=== PATIENT | female | born 2005 | race Caucasian/White ===

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

== ENCOUNTER → 2023-03-21 | Outpatient (CLI) | payer OTHER, SELFPAY | END | disposition home or self-care (01) | PROVIDERS: Visit Provider Physician Assistant | DX: R30.0 Dysuria (principal); J02.9 Acute pharyngitis, unspecified | CPT/HCPCS: 87070; 87077; 87086; 87088; 87186 ==

== ENCOUNTER → 2023-05-09 | Outpatient (CLI) | payer OTHER, SELFPAY ==
--- NOTE | 2023-05-09 15:33 | US_ITS ---
STUDY: ULTRASOUND OF THE FEMALE PELVIS - COMPLETE REASON FOR EXAM: Female, 17 years old. Pelvic pain LMP: May 06, 2023. TECHNIQUE: Transabdominal and Transvaginal TECHNICAL QUALITY: Adequate. COMPARISON: Comparison is made with prior study dated March 07, 2022. FINDINGS: The uterus is anteverted and is in a midline position. The uterus measures 8.1 cm x 4.8 cm x 3.6 cm. Normal uterine cervix. The endometrium measures 3.7 mm in thickness, and is heterogeneous (striated). There is no demonstrated endometrial mass. There is no demonstrated myometrial mass. I.U.D. - The patient does have an I.U.D. The right ovary is visualized. The right ovary measures 3.6 cm x 2.8 cm x 3 cm. There is a 2.7 cm x 2.1 cm x 2.5 cm simple ovarian cyst. There is no visualized right adnexal mass or complex lesion. There is normal arterial and normal venous vascularity. The left ovary is visualized. The left ovary measures 3.3 cm x 1.7 cm x 2.4 cm. There is no left ovarian cyst or ovarian mass. There is no visualized left adnexal mass or complex lesion. There is normal arterial and normal venous vascularity. There is no fluid in the cul-de-sac. The pre void volume of the bladder was 165 ml. US/Pelvic w/ Transvaginal IMPRESSION: IUD seen within the endometrium. 2.7 cm x 2.1 cm x 2.5 cm right ovarian cyst. Electronically Signed: Girish Tracy MD at 10:00 EDT ,
== END | disposition home or self-care (01) ==
LOC: US 15:33
PROVIDERS: Referring Provider Registered Nurse; Visit Provider Registered Nurse
DX: R10.2 Pelvic and perineal pain (principal)
CPT/HCPCS: 76830; 76856

== ENCOUNTER → 2023-06-05 | Outpatient (CLI) | payer OTHER, SELFPAY ==
[2023-06-05 12:19] LABS: Absolute Lymphocyte Count 1.63 X10^3/uL (0.83-4.51); Absolute Neutrophil Count 3.6 X10^3/uL (2.0-7.7); Basophil# 0.03 X10^3/uL; Basophil% 0.5 % (0-1); Eosinophil# 0.21 X10^3/uL; Eosinophils% 3.5 % (0-5); Hematocrit 40.1 % (37-47); Hemoglobin 13.6 g/dL (12.0-15.0); Lymphocyte # 1.63 X10^3/ul (0.83-4.51); Lymphocyte % 27.2 % (19-41); Mean Corp Hgb Conc 33.9 g/dL (32-36); Mean Corpuscular Hgb 31.8 pg (27.0-32.0); Mean Corpuscular Volume 93.7 fL (81-99); Mean Platelet Vol. 10.1 fl (6.2-12.0); Monocyte% 8.3 % (0-10); NRBC Flagged by Analyzer 0 % (0-5); Neutrophil # 3.61 X10^3/uL (2.7-7.7); Neutrophil % 60.2 % (47-70); Platelet Count 290 K/mm3 (150-450); RBC Distribution Width CV 11.9 % (11.6-14.6); RBC Distribution Width SD 40.7 fl (35.1-43.9); Red Blood Count 4.28 M/mm3 (4.2-5.4)
[2023-06-05 12:41] LABS: ALB/GLOB Ratio 1.1 RATIO (0.9-2.4); AST(SGOT) 18 U/L (15-37); Alanine Aminotransfer ALT/SGPT 31 U/L (13-56); Albumin, Serum 3.8 g/dL (3.2-5.0); Alkaline Phosphatase 72 U/L (45-117); Anion Gap 4 (5-15); BUN 9 mg/dL (7-18); BUN/Creat Ratio 11.9 RATIO (10-20); Calcium,Total 8.8 mg/dL (8.5-10.1); Chloride 108 mmol/L (98-107); Cholesterol 134 mg/dL (200); Creatinine, Serum 0.76 mg/dL (0.55-1.02); EST Glomerular Filtration Rate 104 mL/min (>60); Est Glom Filt Rate - Afr Amer 126 mL/min (>60); Ferritin 41 ng/mL (8-252); Globulin 3.5 g/dL (2.2-4.2); Glucose 93 mg/dL (74-106); High Density Lipoprotein 36 mg/dL; Iron 94 ug/dL (50-170); Iron Binding Capacity,Total 351 ug/dL (250-450); Potassium 4.4 mmol/L (3.5-5.1); Protein, Total 7.3 g/dL (6.4-8.2); Sodium Level 137 mmol/L (136-145); T4 Free Direct 0.99 ng/dL (0.76-1.46); Triglycerides 137 mg/dL; Very Low Density Lipoprotein 27 mg/dL (5-40)
== END | disposition home or self-care (01) ==
LOC: BIMLAB 08:49
PROVIDERS: PCP Nurse Practitioner; Visit Provider Nurse Practitioner
DX: Z00.00 Encounter for general adult medical examination without abnormal findings (principal); R63.5 Abnormal weight gain
CPT/HCPCS: 36415; 80053; 80061; 82728; 83540; 83550; 83735; 84439; 84443; 85025

== ENCOUNTER 2023-08-31 13:01 | Emergency (ER) | payer OTHER, SELFPAY ==
[2023-08-31 13:03] VITALS: BP 142/104; PULSE 78; RESP 16; TEMP 36.8; O2SAT 100; BMI 31.1
--- NOTE | 2023-08-31 13:39 | EDS_ITS ---
HPI History of Present Illness Chief Complaint: Back Informant: patient Onset/Context/Timing Onset: Weeks Narrative Narrative: Patient presents secondary to back pain/sciatica with intermittent tingling in her right foot. Patient initially developed right posterior shoulder pain 3 weeks ago after lifting a large dog at work. She got a massage which improved her shoulder pain, but a few days later noted pain to her right lower back. She does have a history of scoliosis. She was seen at urgent care and diagnosed with sciatica. She was given a prescription for Tizanidine, but the patient states this was to o sedating for her. She went back to urgent care recently and was given a prescription for Skelaxin. She has yet to try this because she is concerned about the sedation effects. She has been taking Naprosyn as well. She got a Kenalog shot on August 27 as well as lumbar xrays. Patient states she was called with her xray results today and was told she had a slipped disc and a possible stress fracture. Her PCP put an order in for an MRI, but because patient reports increased tingling to the right foot was told to come to the emergency room. She denies any direct trauma to her back. She has had no fever. She denies bowel or bladder incontinence. [facility] Medical History Congestion of nasal sinus Coughing H/O infectious mononucleosis Scoliosis Home Medications ?Medication ?Instructions ?Recorded ?Last Taken ?Type naproxen 500 mg tablet,delayed 500 mg PO BID PRN pain #20 tabs 07/06/23 Unknown Rx release (EC-Naproxen) ondansetron 4 mg disintegrating 4 mg PO Q6H PRN nausea and 07/06/23 Unknown Rx tablet vomiting #20 tabs metaxalone 800 mg tablet 800 mg PO TID PRN muscle pain #15 08/28/23 Unknown Rx tabs oxycodone-acetaminophen 5 mg-325 1 tab PO Q8H PRN pain 3 days #10 08/31/23 Unknown Rx mg tablet (Percocet) tabs Allergy/AdvReac Type Severity Reaction Status Date / Time amoxicillin AdvReac Severe loose Verified 08/31/23 13:03 stools Family History Grandfather Heart disease Unknown H/O blood clots Grandmother Diabetes Surgical History History of cholecystectomy Social History household members: significant other housing: house current occupational status: employed 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, sexually active: No (not currently, but has been in the past) Smoking Status: Current every day smoker tobacco type: e-cigarettes Electronic Cigarette Use: with nicotine alcohol intake: current alcohol intake frequency: holidays/special occasions only substance use type: marijuana well-balanced diet: about half the time what type of physical activity do you participate in: walking, weight training and other seatbelt use: always do you feel safe at home: Yes ROS ROS ED Constitutional Constitutional ED: Denies chills or fever(s) Eyes Eyes: Denies discharge from eye(s) ENT ENT ED: Denies discharge from eye(s), rhinorrhea or sore throat Cardiovascular Cardiovascular: Denies chest pain Respiratory/Chest Respiratory/Chest: Denies cough or dyspnea Gastrointestinal Gastrointestinal: Denies abdominal pain, nausea or vomiting Genitourinary Genitourinary ED: Denies dysuria or hematuria Musculoskeletal Musculoskeletal: Reports back pain and extremity pain Integumentary Denies Abrasions or rash Neurologic Neurologic: Reports paresthesias; Denies headache(s) or weakness Psychiatric Psychiatric: Denies anxiety or depression Allergic/Immunologic Allergic/Immunologic ED: Denies lip swelling or urticaria EXAM Physical Exam Const Vital Signs: 08/31/23 13:03 Temperature 98.2 F Temperature Source Temporal Pulse Rate 78 Respiratory Rate 16 Blood Pressure 142/104 H Blood Pressure Mean 116 Pulse Ox 100 Oxygen Delivery Method Room Air Positive well nourished and well developed General Appearance ED: well developed HEENT Reports moist mucous membranes Eyes EOMs intact bilaterally Resp normal respiratory effort and clear to auscultation bilaterally Cardio regular rate and regular rhythm GI soft to palpation and non-tender Back/Spine Back/Spine Narrative: Reproducible pain in the lower right lumbar paraspinals and over the sciatic notch. Mild tenderness in the lower midline. No erythema or point tenderness. Extremity normal to inspection Neuro oriented x3 and no sensory deficits noted Neuro Narrative: Patient able to stand at bedside. Able to stand on tip-toes and heels without difficulty. Strong distal pulses. Normal sensation on testing. Motor Exam: strength 5/5 throughout Psych mental status grossly normal Skin no rashes or lesions noted MDM MDM MDM Narrative Medical decision making narrative: I was able to review the notes from urgent care in the computer. Patient has been having intermittent paresthesias to the right foot that are now increasing in frequency. Her lumbar xray report is reviewed. 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 Moderate scoliosis noted. I did notice that there is an order for a lumbar MRI with today's date in the computer from her PCP's office. I spoke with MRI to ensure that had not already scheduled the patient and she had been directed to the wrong location. They reviewed the order and state they are still waiting for the test to be scheduled. At this time the patient does not meet any criteria for an emergency MRI. She will be given a new prescription for Naprosyn. She got an IM Kenalog injection 3 days ago and will try her Skelaxin at home. I will write her a short course of Percocet to use for breakthrough pain only. We discussed the sedating side effects of her medications. She was already given a work note by her PCP. She was given close return instruction. Patient comfortable with the plan. Discharge Plan Triage Chief Complaint: Back ED Provider: Dianna Rios Dx/Rx/DC Orders Clinical Impression: Sciatica Instructions: ED Sciatica Prescriptions: New oxycodone-acetaminophen [Percocet] 5-325 mg tablet 1 tab PO Q8H PRN (Reason: pain) 3 Days Qty: 10 0RF No Action naproxen [EC-Naproxen] 500 mg tablet,delayed release (DR/EC) 500 mg PO BID PRN (Reason: pain) Qty: 20 0RF ondansetron 4 mg tablet,disintegrating 4 mg PO Q6H PRN (Reason: nausea and vomiting) Qty: 20 0RF metaxalone 800 mg tablet 800 mg PO TID PRN (Reason: muscle pain) Qty: 15 0RF Primary Care Provider: Nisha Jackson Referrals: Nisha Jackson, MGMT ANALYST-C [Primary Care Provider] - 5-7 Days Print Language: Divehi Disposition Disposition: Home, Self Care Discharge Date/Time: 08/31/23 13:53
== END 2023-08-31 13:53 | disposition home or self-care (01) ==
PROVIDERS: Emergency Provider Emergency Medicine; PCP Nurse Practitioner; Visit Provider Emergency Medicine
DX: M54.30 Sciatica, unspecified side (principal); F17.290 Nicotine dependence, other tobacco product, uncomplicated; F12.90 Cannabis use, unspecified, uncomplicated
CPT/HCPCS: 99282

== ENCOUNTER → 2023-09-03 | Outpatient (CLI) | payer OTHER, SELFPAY ==
--- NOTE | 2023-09-03 14:25 | MRI_ITS ---
STUDY: MRI LUMBAR SPINE WITHOUT CONTRAST REASON FOR EXAM: Female, 17 years old. lumbar back pain, abnormal xray TECHNIQUE: Standardized fat and water weighted pulse sequences were obtained in the sagittal and axial planes. COMPARISON: X-ray 08/28/2023 FINDINGS: T12-L1: Normal endplates. Normal disc height, hydration and morphology. Normal bilateral facet joints. Normal central canal and bilateral lateral recesses. Normal bilateral intervertebral neural foramina. Normal lumbar lordosis. Moderate levoscoliosis centered at L2. Normal conus medullaris that terminates at the L1. L1-2: Normal endplates. Normal disc height, hydration and morphology. Normal bilateral facet joints. Normal central canal and bilateral lateral recesses. Normal bilateral intervertebral neural foramina. L2-3: Normal endplates. Normal disc height, hydration and morphology. Normal bilateral facet joints. Normal central canal and bilateral lateral recesses. Normal bilateral intervertebral neural foramina. L3-4: Normal endplates. Normal disc height, hydration and morphology. Normal bilateral facet joints. Normal central canal and bilateral lateral recesses. Normal bilateral intervertebral neural foramina. L4-5: Disc desiccation but no disc protrusion, spinal stenosis, or neural foraminal stenosis. L5-S1: Suspected bilateral pars defects of the L5 are consistent with L5 spondylolysis. 2 mm of anterolisthesis of L5 on S1 consistent with grade 1 spondylolisthesis. Mild broad disc protrusion produces mild spinal stenosis and moderate bilateral neural foraminal stenosis with abutment of the exiting L5 nerve roots bilaterally. Normal visualized sacral ala. Normal visualized paraspinous soft tissue structures. MRI/Spine Lumbar (Routine) IMPRESSION: 1. Moderate levoscoliosis. 2. L5 spondylolysis with grade 1 spinal listhesis of L5 on S1 with moderate bilateral neural foraminal stenosis. Electronically Signed: Rg Son MD at 12:24 EDT ,
== END | disposition home or self-care (01) ==
LOC: MRI 14:51
PROVIDERS: PCP Nurse Practitioner; Referring Provider Nurse Practitioner; Visit Provider Nurse Practitioner
DX: M54.50 Low back pain, unspecified (principal)
CPT/HCPCS: 72148

== ENCOUNTER 2023-09-19 15:02 | Outpatient (RCR) | payer OTHER, SELFPAY ==
--- NOTE | 2023-09-19 16:02 | HP.PTEVAL ---
Patient's Visit Information Visit Information Visit Information: DAVID DELGADILLO is a 17 year old F referred to Physical Therapy by Dr. Hu Mack MD with a diagnosis of Spondylosis. 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 She went to Urgent Care twice and they thought she had a pinched nerve and sent her home with muscle relaxers and went back a week later and got x-rays and some kind of shot. She got an MRI and saw Dr Hernandez. He said she just had a slipped disc and stenosis. He said that she needed to come to PT. She has weakness in her R leg when she stands on it. The pain is her tailbone and 2 inches to the R of tailbone. At first the pain was on the R butt cheek and her toe. If she walks for too long or sits too long she will get the pain. She does not have the R leg pain as much at this point. She changes positions to get comfortable. She is not allowed to go back to work with restrictions per her current employer. She sleeps better on her stomach but her boyfriend has commented that she tosses and turns all night. Pain Back pain: Pain Intensity (Out of 10): 4 R leg pain: Pain Intensity (Out of 10): 0 Objective Objective: Gait: Walks with decrease stance time on the R LE and decrease stride length LE MMT: R hip flex 17.9 and L 18.3 R knee ext 15.9 and L 16.9 R knee flex 13.6 and L 12.4 Able to walk on heels and toes: Pt has increase pain with walking on her heels and not so much on her toes Trunk AROM: Flex 50%, Ext 10% (less ext on the R side compared to the L), SB B 50% (increase pain on the R side), Rot B 75% Patella DTR's: 0/3 B Bridge: full ROM and no pain Good piriformis length B -SLR test Pt has pain lying flat on her back with knees bent. Prone lying she feels slight great toe tingle Prone on elbows: some R big toe tingling increase from prone to MURRAY Good hip flexor muscle length....B Good pelvic tilt and almost helps to relieve the pain. Balance/Special Test Scores Oswestry Low Back Score: 22 Goals Goal 1:: I HEP Goal Time Frame: 6-8 Weeks Goal 2:: Increase painfree trunk AROM (at the time of the eval: Trunk AROM: Flex 50%, Ext 10% (less ext on the R side compared to the L), SB B 50% (increase pain on the R side), Rot B 75%) Goal Time Frame: 6-8 Weeks Goal 3:: Be able to sit or stand for 30 min without having R leg pain Goal Time Frame: 6-8 Weeks Goal 4:: Walk with equal stance time on B LE's Goal Time Frame: 6-8 Weeks Goal 5:: Be able to demonstrate how to lift with using her knees. Goal Time Frame: 6-8 Weeks Rehabilitation Potential Physical Therapy Diagnosis: MRI shows 5 mm spondylolisthesis L5-S1 Rehabilitation Potential: Good Anticipated Interventions Patient/Client Instruction: Educate patient on: Condition and Plan of Care For the Purpose of:: To decrease pain, To increase ROM, To improve nutrient delivery to tissue, To improve muscle performance and motor function, To improve ability to perform ADL's, To increase tolerance to activity/condition/position, To improve performance and independence with ADL's, To decrease level of supervision to perform tasks, To improve ability of physical actions for home/community/work/leisure, To improve gait and locomotor functions, To improve health of tissue, To decrease soft tissue restriction, To increase flexibility/ROM and To improve endurance Therapeutic Exercise to Include: Strength training, Endurance training, Postural training, Neuromotor development, Active ROM, Dynamic Lumbar Stabilization and Scapular Strength/Stabilization For the Purpose of:: To decrease pain, To increase ROM, To improve nutrient delivery to tissue, To improve muscle performance and motor function, To improve ability to perform ADL's, To increase tolerance to activity/condition/position, To improve performance and independence with ADL's, To improve ability of physical actions for home/community/work/leisure, To improve gait and locomotor functions, To improve health of tissue, To decrease soft tissue restriction and To increase flexibility/ROM Functional Training to Include: Gait training For the Purpose of:: To improve gait and locomotor functions Text: Thank you for the opportunity to evaluate your patient. For Medicare and Medicare HMO plans, please review the plan of care and approve it. It will need to be FAXED BACK to us at [phone] for Medicare purposes. For Medicare only, by signing this I certify the plan of care. Please let me know if there are questions or concerns regarding this plan of care. Physician Signature: Date:
--- NOTE | 2023-12-18 07:20 | HP.PT.NRP ---
Patient Information Patient Information: DAVID DELGADILLO was seen in my office for initial evaluation on 09/19/23. The following Plan of Care was established for this patient: POC Established Initial Frequency: 2x /Week Initial Duration: 2 Months Anticipated Interventions Patient/Client Instruction: Educate patient on: Condition and Plan of Care For the Purpose of:: To decrease pain, To increase ROM, To improve nutrient delivery to tissue, To improve muscle performance and motor function, To improve ability to perform ADL's, To increase tolerance to activity/condition/position, To improve performance and independence with ADL's, To decrease level of supervision to perform tasks, To improve ability of physical actions for home/community/work/leisure, To improve gait and locomotor functions, To improve health of tissue, To decrease soft tissue restriction, To increase flexibility/ROM and To improve endurance Therapeutic Exercise to Include: Strength training, Endurance training, Postural training, Neuromotor development, Active ROM, Dynamic Lumbar Stabilization and Scapular Strength/Stabilization For the Purpose of:: To decrease pain, To increase ROM, To improve nutrient delivery to tissue, To improve muscle performance and motor function, To improve ability to perform ADL's, To increase tolerance to activity/condition/position, To improve performance and independence with ADL's, To improve ability of physical actions for home/community/work/leisure, To improve gait and locomotor functions, To improve health of tissue, To decrease soft tissue restriction and To increase flexibility/ROM Functional Training to Include: Gait training For the Purpose of:: To improve gait and locomotor functions Last Seen Last Seen: This patient was last seen in our office 09/19/23. Pertinent comments regarding their Physical therapy will appear below: [facility]. Pt did not schedule past her initial eval. At this point I will be discontinuing this patient from physical therapy. I would be happy to see this patient again in the future if found appropriate by the physician. Thank you! Katarina Russell, LUCI Balance/Gait/Functional tests Balance/Special Test Scores Oswestry Low Back Score: 22
== END 2023-09-19 19:00 | disposition home or self-care (01) ==
LOC: PT 15:02
PROVIDERS: PCP Nurse Practitioner; Referring Provider Orthopaedic Surgery Orthopaedic Surgery of the Spine; Visit Provider Orthopaedic Surgery Orthopaedic Surgery of the Spine
DX: M43.06 Spondylolysis, lumbar region (principal)
CPT/HCPCS: 97161

== ENCOUNTER 2024-02-27 13:07 | Emergency (ER) | payer OTHER, SELFPAY ==
[2024-02-27 13:08] VITALS: BP 138/84; PULSE 100; RESP 18; TEMP 36.1; O2SAT 99; BMI 30.8
[2024-02-27 14:08] LABS: Mucous, Urine 0 SEEN /hpf (<or=2+)
--- NOTE | 2024-02-27 14:09 | RAD_ITS ---
STUDY: X-RAY CHEST REASON FOR EXAM: Female, 18 years old. Hemoptysis. TECHNIQUE: PA and lateral views of the chest. COMPARISON: None. FINDINGS: The lungs are clear and expanded. There is no demonstrated pleural abnormality. Normal size heart. Normal mediastinum and meera. Normal visualized pulmonary arteries. Normal visualized aortic arch and descending thoracic aorta. There is a dextroscoliosis of the thoracic spine. Normal visualized ribs, clavicles, and shoulders. There is no demonstrated abnormality of the visualized soft tissue structures of the upper abdomen. RAD/Chest PA and Lateral IMPRESSION: Dextroscoliosis. The lungs are clear. Electronically Signed: Girish Tracy MD at 14:24 EST ,
--- NOTE | 2024-02-27 14:10 | EDS_ITS ---
HPI History of Present Illness Chief Complaint: Cough Narrative Narrative: Patient is a 18-year-old female with no known significant past medical history who presented to the emergency department with a chief complaint of cough, nausea vomiting diarrhea. She also complained of coughing up some blood and vomiting blood as well. Patient states that she has not vomited blood since last night. States that prior to this episode she had a episode of vomiting with no blood and then vomited again and noted that she has small amount of blood. Patient states that she was seen in urgent care yesterday and was told that she probably has the flu and was given Tamiflu but was not formally diagnosed/tested. Patient states that she does not feel nauseous since taking the Zofran last night. Patient denies any blood thinning medications. Patient denies any history of blood clots denies any recent travel history denies any tobacco use. [facility] Medical History Congestion of nasal sinus Coughing H/O infectious mononucleosis Scoliosis Home Medications ?Medication ?Instructions ?Recorded ?Last Taken ?Type multivitamin 1 tab PO DAILY 09/12/23 Unknown History ondansetron 4 mg disintegrating 4 mg PO Q6H PRN nausea and 01/18/24 Unknown Rx tablet vomiting #30 tabs bupropion HCl 150 mg 24 hr tablet, 150 mg PO QAM #30 tabs 01/22/24 Unknown Rx extended release hydroxyzine HCl 10 mg tablet 10 mg PO TID PRN anxiety #30 tabs 01/22/24 Unknown Rx ondansetron HCl 4 mg tablet 4 mg PO Q6H PRN nausea and 02/26/24 Unknown Rx vomiting #20 tabs oseltamivir 75 mg capsule (Tamiflu) 75 mg PO Q12H 5 days #10 caps 02/26/24 Unknown Rx ondansetron 4 mg disintegrating 4 mg PO Q6H PRN nausea and 02/27/24 Unknown Rx tablet vomiting #20 tabs Allergy/AdvReac Type Severity Reaction Status Date / Time amoxicillin AdvReac Severe loose Verified 02/27/24 13:08 stools Family History Grandfather Heart disease Unknown H/O blood clots Grandmother Diabetes Surgical History History of cholecystectomy Social History household members: significant other housing: house 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 well-balanced diet: about half the time what type of physical activity do you participate in: walking, weight training and other seatbelt use: always do you feel safe at home: Yes ROS ROS ED ROS Narrative Constitutional: Patient states that she had a fever yesterday of 102 and took Mucinex and it went away denies any chills, headaches, lightheadedness, dizziness Eyes: Denies change in vision double vision blurry vision Cardiovascular: Complains of some chest comfort especially when she coughs denies palpitations Respiratory: Complains of coughing as noted above denies wheezing or shortness of breath Abdomen: Complains of nausea vomit diarrhea as noted above : Denies any urinary symptoms Neurological: Denies any numbness, weakness, tingling Musculoskeletal: Denies any back pain Skin: Denies rashes or lesions EXAM Physical Exam Narrative Exam Narrative: General: Patient was lying in bed rest comfortably did not appear to be acute distress Head: Atraumatic, normocephalic Eyes: PERRL bilaterally, EOMI bilateral, no conjunctival injection noted Neck: Soft, supple, trachea midline Cardiovascular: Regular rate and rhythm no murmurs gallops rubs are noted Respiratory: Clear to auscultation bilaterally no rales rhonchi or wheezes noted Abdomen: Soft, nondistended, nontender to palpation, bowel sounds present x 4 Extremities: +5/5 strength noted in the bilateral upper and lower extremities, radial pulses +2/4 in the bilateral per extremities, no pedal edema neuroexam Neurological: Patient following commands knew that she was at [facility] year is 2024 Skin: Warm, dry, intact no rashes or lesions noted Const Vital Signs: 02/27/24 13:08 02/27/24 13:22 02/27/24 15:08 Temperature 96.9 F L Temperature Source Temporal Pulse Rate 100 80 Respiratory Rate 18 15 Respiratory Effort Short of Breath Respiratory Depth Normal Respiratory Pattern Normal Blood Pressure 138/84 H 119/77 Blood Pressure Mean 102 91 Pulse Ox 99 100 Oxygen Delivery Method Room Air MDM MDM MDM Narrative Medical decision making narrative: Patient is a 18-year-old female who presented to the emergency department chief complaint of hematemesis likely secondary to Jeanine-Hooper tear, hemoptysis nausea vomiting and not feeling well overall. On the differential diagnose includes but not limited to influenza, COVID, bronchitis, pneumonia, pneumothorax, costochondritis. Once workup is obtained reviewed she will be reevaluated. At this point time per revised Madison score patient is low risk for PE therefore feel this less likely. Patient's EKG reviewed and independently interpreted by myself showed sinus rhythm with a rate of 80 bpm. Patient's urinalysis reviewed and showed 100 leukocyte esterase negative ni trites 5-10 white cells 5-10 squamous epithelial cells likely indicating contaminant sample with 3+ bacteria we will send this for culture we will hold off on treatment as she is asymptomatic test negative. Patient tested positive for influenza A here in the emergency department. She is already on Tamiflu. Did discuss results with the patient and she would like to go home at this point time. Once again the patient has not had a recurrence of her hematemesis or hemoptysis since last night. Should be given prescription for Zofran and was advised to continue take the Tamiflu as prescribed and return with worsening symptoms or concerns. She is agreeable this plan all question concerns answered she was discharged home in stable condition. Lab Data Labs: Laboratory Results - last 24 hr 02/27/24 14:03 Urine Color Yellow Urine Clarity Sl. Cloudy Urine pH 5.0 Ur Specific [place] 1.025 Urine Protein 30 H Urine Glucose (UA) Normal Urine Ketones 50 H Urine Occult Blood 25 H Urine Nitrite Negative Urine Bilirubin Negative Urine Urobilinogen Normal Ur Leukocyte Esterase 100 H Urine RBC 0-5 SEEN Urine WBC 5-10 SEEN Ur Squamous Epith Cells 5-10 SEEN Amorphous Sediment 1+ Urine Bacteria 3+ Urine Mucus 0 SEEN Urine Test Negative Radiography Diagnostic Testing: Clinical Impression(s) from Imaging Studies Chest X-Ray 02/27/24 14:09 IMPRESSION: Dextroscoliosis. The lungs are clear. Electronically Signed: Girish Tracy MD at 14:24 EST , Discharge Plan Triage Chief Complaint: Cough ED Provider: Dylan Coronado Dx/Rx/DC Orders Clinical Impression: Influenza A Prescriptions: New ondansetron 4 mg tablet,disintegrating 4 mg PO Q6H PRN (Reason: nausea and vomiting) Qty: 20 0RF No Action multivitamin Tablet 1 tab PO DAILY bupropion HCl 150 mg tablet extended release 24 hr 150 mg PO QAM Qty: 30 1RF hydroxyzine HCl 10 mg tablet 10 mg PO TID PRN (Reason: anxiety) Qty: 30 1RF oseltamivir [Tamiflu] 75 mg capsule 75 mg PO Q12H 5 Days Qty: 10 0RF ondansetron HCl 4 mg tablet 4 mg PO Q6H PRN (Reason: nausea and vomiting) Qty: 20 0RF ondansetron 4 mg tablet,disintegrating 4 mg PO Q6H PRN (Reason: nausea and vomiting) Qty: 30 3RF Primary Care Provider: Wm Bedolla Referrals: Wm Bedolla, ENTOMOLOGY TEACHER[facility] [Primary Care Provider] - Activity Restrictions/Additional Instructions: You tested positive for influenza A here continue take Tamiflu as prescribed. Continue supportive care and use the Zofran as prescribed. Return with worsening symptoms or any other concerns. Follow-up your primary care physician outpatient setting. Print Language: Tamazight Disposition Disposition: Home, Self Care
--- NOTE | 2024-02-27 14:19 | ED.RN ---
no old ekg
[2024-02-27 14:22] LABS: Color, Urine Yellow (Yellow); Glucose, Dipstick Normal (Normal); Ketone-Dipstick 50 mg/dl (Negative); Leukocyte Esterase-Dipstick 100 /ul (Negative); Nitrite-Dipstick Negative (Negative); Occult Blood-Urine 25 /ul (Negative); Protein-Dipstick 30 mg/dl (Negative); Specific Gravity, Urine 1.025 (1.002-1.030); Urine Bilirubin Dipstick Negative (Negative); Urine Clarity Sl. Cloudy (Clear); Urine Urobilinogen Normal (Normal)
[2024-02-27 14:38] LABS: Internal QC Validated? YES +Cl - CLEAR BKGD; Pregnancy, Urine Negative Negative
[2024-02-27 14:39] LABS: Bacteria 3+ /hpf (None Seen); Red Blood Cells-Urine 0-5 SEEN /hpf (0-5); Squamous Epithelial Cells - UA 5-10 SEEN /hpf (5-10); White Blood Cells 5-10 SEEN /hpf (0-5)
[2024-02-27 14:40] LABS: Amorphous Sediment 1+
[2024-02-27 15:08] VITALS: BP 119/77; PULSE 80; RESP 15; O2SAT 100
[2024-02-27 15:36] VITALS: BP 118/79; PULSE 69; RESP 17; TEMP 36.6; O2SAT 99
== END 2024-02-27 15:38 | disposition home or self-care (01) ==
PROVIDERS: Emergency Provider Emergency Medicine; Visit Provider Emergency Medicine
DX: J10.1 Influenza due to other identified influenza virus with other respiratory manifestations (principal); R82.998 Other abnormal findings in urine; F17.210 Nicotine dependence, cigarettes, uncomplicated; Z88.0 Allergy status to penicillin
CPT/HCPCS: 71046; 81001; 81025; 87086; 87088; 87631; 93005; 99282

== ENCOUNTER → 2024-04-21 | Outpatient (CLI) | payer OTHER, SELFPAY | END | disposition home or self-care (01) | LOC: LABSPEC 16:04 | PROVIDERS: Visit Provider Physician Assistant | DX: J02.9 Acute pharyngitis, unspecified (principal) | CPT/HCPCS: 87070 ==

== ENCOUNTER → 2024-06-06 | Outpatient (CLI) | payer OTHER, SELFPAY ==
[2024-06-09 22:07] LABS: Chlamydia By Nucleic Acid AMP Negative (Negative); Gonococcus By Nucleic Acid AMP Negative (Negative)
== END | disposition home or self-care (01) ==
LOC: LABSPEC 11:42
PROVIDERS: Referring Provider Registered Nurse; Visit Provider Registered Nurse
DX: Z20.2 Contact with and (suspected) exposure to infections with a predominantly sexual mode of transmission (principal)
CPT/HCPCS: 87491; 87591

== ENCOUNTER → 2024-08-08 | Outpatient (CLI) | payer OTHER, SELFPAY ==
--- NOTE | 2024-08-08 13:04 | US_ITS ---
PROCEDURE: PELVIC W/ TRANSVAGINAL 08/08/2024 REASON FOR EXAM: AUB TECHNIQUE: PELVIC W/ TRANSVAGINAL COMPARISON: Pelvic ultrasound on 05/09/2023. FINDINGS: Measurements: Uterus: 7.6 x 3.6 x 5.7 cm for volume of 81.1 mL Endometrial Thickness: 0.5 cm Right Ovary: 3.0 x 1.8 x 1.5 cm for volume of 4.2 mL Left Ovary: 2.9 x 2.5 x 2.6 cm for volume of 9.9 mL Uterus: Anteverted. Normal contour and myometrial echotexture. Endometrium: Normal echotexture. Right ovary: Normal size and echotexture. Left ovary: Normal size and echotexture. Other adnexal findings: None. Cul-de-sac: No free intraperitoneal fluid identified. Color Doppler: Normal color flow doppler signal at both ovaries. US/Pelvic w/ Transvaginal IMPRESSION: NORMAL TRANSABDOMINAL AND TRANSVAGINAL PELVIC ULTRASOUND WITH DOPPLER. Reading Location: [id number]
== END | disposition home or self-care (01) ==
LOC: US 13:00
PROVIDERS: Referring Provider Registered Nurse; Visit Provider Registered Nurse
DX: N93.9 Abnormal uterine and vaginal bleeding, unspecified (principal); R10.2 Pelvic and perineal pain
CPT/HCPCS: 76830; 76856

== ENCOUNTER → 2024-11-12 | Outpatient (CLI) | payer OTHER, SELFPAY ==
--- NOTE | 2024-11-12 13:22 | RAD_ITS ---
PROCEDURE: NASAL BONES MIN 3 VIEWS 11/12/2024 REASON FOR EXAM: NOSE INJURY TECHNIQUE: Procedure Code: RADNB Modality: DX Procedure: NASAL BONES MIN 3 VIEWS COMPARISON: None. RAD/Nasal Bones min 3 Views IMPRESSION: Visualized paranasal sinuses appear clear. No fracture or dislocation is noted. If clinical concern persists, short-term follow-up imaging may be obtained to r ule out a currently occult fracture. Reading Location: [id number]
--- NOTE | 2024-11-12 13:22 | RAD_ITS ---
PROCEDURE: NASAL BONES MIN 3 VIEWS 11/12/2024 REASON FOR EXAM: NOSE INJURY TECHNIQUE: Procedure Code: RADNB Modality: DX Procedure: NASAL BONES MIN 3 VIEWS COMPARISON: None. RAD/Nasal Bones min 3 Views IMPRESSION: Visualized paranasal sinuses appear clear. No fracture or dislocation is noted. If clinical concern persists, short-term follow-up imaging may be obtained to r ule out a currently occult fracture. Reading Location: [id number]
== END | disposition home or self-care (01) ==
LOC: MTRAD 13:22
PROVIDERS: Referring Provider Physician Assistant; Visit Provider Physician Assistant
DX: S09.92XA Unspecified injury of nose, initial encounter (principal)
CPT/HCPCS: 70160

== ENCOUNTER → 2025-01-07 | Outpatient (CLI) | payer OTHER, SELFPAY ==
[2025-01-07 14:34] LABS: Hematocrit 40.6 % (37-47); Hemoglobin 13.8 g/dL (12.0-15.0); Immature Granulocytes Count 0.030 X10^3/uL (0.0-0.0); Mean Corp Hgb Conc 34.0 g/dL (32-36); Mean Corpuscular Volume 91.0 fL (81-99); Mean Platelet Vol. 9.3 fl (6.2-12.0); NRBC Flagged by Analyzer 0 % (0-5); Platelet Count 318 K/mm3 (150-450); RBC Distribution Width CV 11.9 % (11.6-14.6); RBC Distribution Width SD 39.4 fl (35.1-43.9); Red Blood Count 4.46 M/mm3 (4.2-5.4); White Blood Count 8.0 K/mm3 (4.4-11.0)
--- OUTSIDE RECORDS SUMMARY | 2025-01-07 14:41 | XMS RPT_ITS | CCD ---
Author Organization [facility] Care Team Providers Care Harp Repairer Name Role Phone Care Physician, No Primary Primary Care Provider Unavailable Care Physician, No Primary Referring Provider Un available ANY Espinal Attending Provider SHARON Espana NP Attending Provider Sofi De Los Santos Primary Care Provider Care Physician, No Primary Primary Care Provider Unavailable Care Physician, No Primary Referring Provider Un available ANY Espinal Attending Provider ZELALEM Boogie Attending Provider SOFI DE LOS SANTOS Primary Care Unavaila ble SOFI DE LOS SANTOS Primary Care Unavaila ble Care Physician, No Primary Primary Care Provider Unavailable Care Physician, No Primary Referring Provider Un available ANY Rivera Attending Provider ANY Espinal Attending Provider Care Physician, No Primary Primary Care Provider Unavailable Care Physician, No Primary Referring Provider Un available ANY Rivera Attending Provider ANY Espinal Attending Provider ZELALEM Boogie Attending Provider [phone] Care Physician, No Primary Primary Care Provider Unavailable Care Physician, No Primary Referring Provider Un available SHARON Jackson Attending Provider ELLIS MEHTA Attending Unavailable ELLIS MEHTA Primary Care Unavailable ELLIS MEHTA Admitting Unavailable NICHOLAS MIGUEL Admitting Unavailable NICHOLAS MIGUEL Attending Unavailable NICHOLAS MIGUEL Primary Care Unavailable Kaushik Garza Attending Unavailable Beam VSC, Zebulun Primary Care Unavailable Beam VSC, Zebulun Referring Unavailable Angela Boogie Attending Unavailable Beam VSC, Zebulun Primary Care Unavailable Beam VSC, Zebulun Referring Unavailable Angela Boogie Attending Unavailable Beam VSC, Zebulun Primary Care Unavailable Beam VSC, Zebulun Referring Unavailable Filipe Espinal Attending Unavailable Ferullo, Yuko Referring Unavailable Ferullo, Yuko Primary Care Unavailable Ferullo, Yuko Referring Unavailable Ferullo, Yuko Primary Care Unavailable Alex London Attending Unavailable Filipe Espinal Attending Unavailable Beam VSC, Zebulun Primary Care Unavailable Beam VSC, Zebulun Referring Unavailable Dylan Coronado Attending Unavailable Beam VSC, Zebulun Primary Care Unavailable Angela Boogie Referring Unavailable Angela Boogie Attending Unavailable Beam VSC, Zebulun Primary Care Unavailable Filipe Espinal Attending Unavailable Beam VSC, Zebulun Primary Care Unavailable Kaushik Garza Referring Unavailable Kaushik Garza Attending Unavailable Beam VSC, Zebulun Primary Care Unavailable Angela Boogie Referring Unavailable Angela Boogie Attending Unavailable Beam VSC, Zebulun Primary Care Unavailable Nicholas Miguel Attending Unavailable Beam VSC, Zebulun Primary Care Unavailable Beam VSC, Zebulun Referring Unavailable Beam VSC, Zebulun Primary Care Unavailable Iris Gold Attending Unavailable Ferullo, Yuko Primary Care Unavailable Iris Gold Attending Unavailable Ferullo, Yuko Referring Unavailable Ferullo, Yuko Primary Care Unavailable Hu Mack Attending Unavailable Beam VSC, Zebulun Referring Unavailable Kaushik Garza Attending Unavailable Beam VSC, Zebulun Primary Care Unavailable Filipe Espinal Attending Unavailable Beam VSC, Zebulun Primary Care Unavailable Beam VSC, Zebulun Referring Unavailable Allergies Allergy Classification Reported Allergen(s) Allergy Type Date of Onset Reaction(s) Facility (10 sources) Cheese; Translations: [CHEESE] Allergy to substance 6 Hives [facility] (3 sources) Amoxicillin Drug Allergy 4 Other, loose stools [facility] (1 source) Amoxicillin Drug Allergy [facility] (1 source) Amoxicillin Drug Allergy [facility] Medications Current Medications Medication Drug Class(es) Dates Sig (Normalized) Sig (Original) cephalexin 500 mg oral capsule (9 sources) Cephalosporin Antibacterial Start: 11-27-2022 End: 12-04-2022 take 1 capsule by mouth three times daily cephALEXin (KEFLEX) 500 mg capsule Take 1 capsule by mouth three times a day for 7 days. 21 capsule 0 11/27/2022 12/04/2022 Active Start: 04-22-2018 End: 09-02-2019 take 500 mg by mouth every twelve hours Cephalexin Discontinued 500 MG PO EVERY 12 HOURS April 22, 2018 12:00am September 02, 2019 11:01am Comment on above: Take 1 capsule by mo [facility] three times a day for 7 days. mupirocin 0.02 mg/mg topical ointment (1 source) RNA Synthetase Inhibitor Antibacterial Start: 11-27-2022 End: 12-02-2022 mupirocin (BACTROBAN) 2 % ointment Apply to affected area three times a day for 5 days. 30 g 0 11/27/2022 12/02/2022 Active Comment on above: Apply to affected ar ea three times a day for 5 days. [place] (Nk) (2 sources) Start: 05-14-2023 [place] (Nk) Active May 14, 2023 12:00am predniSONE 10 mg oral tablet (1 source) Start: 06-25-2022 End: 07-04-2022 predniSONE (DELTASONE) 10 mg tablet Indications: Sore throat Take 4 tabs daily for 3 days, then 2 tabs daily for 3 days, then 1 tab daily for 3 days with food. 21 tablet 0 06/25/2022 07/04/2022 Active Comment on above: Take 4 tabs daily fo r 3 days, then 2 tabs daily for 3 days, then 1 tab daily for 3 days with food. Completed/Discontinued Medications Medication Drug Class(es) Dates Sig (Normalized) Sig (Original) amoxicillin 875 mg / clavulanate 125 mg oral tablet (8 sources) Penicillin-class Antibacterial Start: 01-03-2022 End: 05-08-2022 take 1 tablet by mouth every twelve hours Amoxicillin-Pot Clavulanate Discontinued 1 TABLET PO Q12H January 03, 2022 1:00am May 08, 2022 3:30pm azithromycin 250 mg oral tablet (19 sources) Macrolide Antimicrobial Start: 08-22-2022 End: 02-08-2023 take 2-5 tablets by mouth once daily Azithromycin (Zithromax Z-Alams) 250 mg tablet Discontinued 0 PO .COMPLEX August 22, 2022 12:00am February 08, 2023 1:31pm take 500 mg today (day 1), then 250 mg for 4 days (days 2-5) PO Start: 06-26-2022 End: 08-10-2022 take 2-5 tablets by mouth once daily Azithromycin (Zithromax Z-Almas) 250 mg tablet Discontinued 0 PO .COMPLEX June 26, 2022 12:00am June 26, 2022 1:32pm take 500 mg today (day 1), then 250 mg for 4 days (days 2-5) PO Start: 01-10-2022 End: 05-08-2022 take 2-5 tablets by mouth once daily Azithromycin (Zithromax Z-Almas) 250 mg tablet Discontinued 0 PO .COMPLEX January 10, 2022 1:00am May 08, 2022 3:31pm take 500 mg today (day 1), then 250 mg for 4 days (days 2-5) PO CHILDREN'S MULTI VITAMINS ORAL (2 sources) CHILDREN'S MULTI VITAMINS ORAL Take by mouth once daily. 0 Active Comment on above: Take by mouth once d aily. Desogestrel-Ethinyl Estradiol (15 sources) Progestin, Estrogen Start: 01-18-2022 End: 03-01-2022 Desogestrel-Ethinyl Estradiol (Apri) 0.15-0.03 mg tablet Discontinued 1 TABLET PO daily January 18, 2022 4:17pm March 01, 2022 12:24pm Start: 01-18-2022 End: 03-01-2022 Desogestrel-Ethinyl Estradio l (Apri) 0.15-0.03 mg tablet Discontinued 1 TABLET PO daily January 18, 2022 3:17pm March 01, 2022 11:24am Start: 12-07-2022 Desogestrel-Et hinyl Estradiol (Apri) 0.15-0.03 mg tablet Active 1 TABLET PO daily January 18, 2022 3:17pm Start: 11-04-2020 End: 01-18-2022 Desogestrel-Ethinyl Estradio l (Apri) 0.15-0.03 mg tablet Discontinued 1 TABLET PO daily November 04, 2020 12:00am January 18, 2022 4:17pm Start: 11-04-2020 End: 01-18-2022 Desogestrel-Ethinyl Estradio l (Apri) 0.15-0.03 mg tablet Discontinued 1 TABLET PO daily November 03, 2020 11:00pm January 18, 2022 3:17pm Start: 11-04-2020 Desogestrel-Et hinyl Estradiol (Apri) 0.15-0.03 mg tablet Active 1 TABLET PO daily November 03, 2020 11:00pm Drospirenone-Ethinyl Estradiol (8 sources) Progestin, Estrogen Start: 08-03-2020 End: 11-04-2020 Drospirenone-Ethinyl Estradiol (Amanda (28)) 3-0.02 mg tablet Discontinued 1 TABLET PO daily August 03, 2020 12:00am November 04, 2020 1:32pm Start: 08-03-2020 End: 11-04-2020 Drospirenone-Ethinyl Estradi ol (Amanda (28)) 3-0.02 mg tablet Discontinued 1 TABLET PO daily August 02, 2020 11:00pm November 04, 2020 12:32pm Ethinyl Estradiol / norgestimate (8 sources) Progestin, Estrogen Start: 05-16-2022 take 1 tablet by mouth once daily SPRINTEC 0.25-35 mg-mcg per tablet Take 1 tablet by mouth once daily. 0 05/16/2022 Active Start: 03-01-2022 End: 08-10-2022 take 1 tablet by mouth once daily Norgestimate-Ethinyl Estradiol (Sprintec (28)) 0.25-35 mg-mcg tablet Discontinued 1 TABLET PO daily March 01, 2022 12:00am August 10, 2022 9:21am Start: 03-01-2022 End: 08-10-2022 take 1 tablet by mouth once daily Norgestimate-Ethinyl Estradiol (Sprintec (28)) 0.25-35 mg-mcg tablet Discontinued 1 TABLET PO daily March 01, 2022 1:00am August 10, 2022 10:21am Start: 03-01-2022 take 1 tablet by franc th once daily Norgestimate-Ethinyl Estradiol (Sprintec (28)) 0.25-35 mg-mcg tablet Active 1 TABLET PO daily March 01, 2022 12:00am Comment on above: Take 1 tablet by franc th once daily. fluconazole 150 mg oral tablet (8 sources) Azole Antifungal Start: 11-05-19 End: 05-09-19 Fluconazole Discontinued 150 MG PO .COMPLEX 2 November 04, 2020 12:00am May 08, 2022 3:31pm 150 mg PO take one po now and repeat in 3 days lactobacillus acidophilus 460 mg oral capsule (1 source) Start: 11-28-19 take 1 capsule by mouth once daily Lactobacillus acidophilus (FLORAJEN ACIDOPHILUS) 20 billion cell capsule Take 1 capsule by mouth once daily. 30 capsule 0 11/27/2022 Active Comment on above: Take 1 capsule by mo [facility] once daily. levonorgestrel 0.074162 mg/hr intrauterine system (1 source) Progestin, Progestin-containing Intrauterine Device levonorgestrel (MIRENA) 21 mcg/24 hours (8 yrs) 52 mg IUD 1 Each by INTRAUTERINE route one time only. 0 Active Comment on above: 1 Each by INTRAUTERI NE route one time only. lidocaine hydrochloride 20 mg/ml mucous membrane topical solution (2 sources) Antiarrhythmic, Amide Local Anesthetic Start: 06-26-19 LIDOCAINE VISCOUS 2 % solution Indications: Sore throat Take 5-10 mL by mouth four times daily as needed. 10 mL 0 06/25/2022 Active Comment on above: Take 5-10 mL by mout h four times daily as needed. Multivitamin preparation (8 sources) Start: 09-02-19 End: 08-04-19 take 1 tablet by mouth once daily Multivitamin Discontinued 1 TABLET PO DAILY September 02, 2019 12:00am August 03, 2020 1:31pm Start: 09-02-2019 End: 08-03-2020 take 1 tablet by mouth once daily Multivitamin Discontinued 1 TABLET PO DAILY September 01, 2019 11:00pm August 03, 2020 12:31pm nitrofurantoin, macrocrystals 100 mg oral capsule (3 sources) Nitrofuran Antibacterial Start: 03-22-2023 End: 04-26-2023 take 100 mg by mouth every twelve hours at mealtime Nitrofurantoin Macrocrystal Discontinued 100 MG PO Q12H March 22, 2023 1:00am April 26, 2023 11:23am must administer with a meal/food ondansetron 4 mg disintegrating oral tablet (8 sources) Serotonin-3 Receptor Antagonist Start: 04-22-2018 End: 09-02-2019 take 4 mg by mouth every eight hours as needed Ondansetron Discontinued 4 MG PO EVERY 8 HOURS NEEDED April 22, 2018 12:00am September 02, 2019 11:01am phenazopyridine hydrochloride 100 mg oral tablet (3 sources) Start: 03-22-2023 End: 04-26-2023 take 1 tablet by mouth three times daily Phenazopyridine (Pyridium) 100 mg tablet Discontinued 100 MG PO THREE TIMES A DAY March 22, 2023 1:00am April 26, 2023 11:23am Problems Active Problems Problem Classification Problem Date Documented Da te Episodic/Chronic Abdominal pain (14 sources) Left upper quadrant pain; Translations: [Left upper quadrant pain] 04-17-2018 Episodic Acute and chronic tonsillitis (5 sources) Recurrent acute tonsillitis; Translations: [Acute recurrent tonsillitis, unspecified] 08-22-2022 Episodic Administrative/social admission (1 source) Persons encountering health services in other specified circumstances; Translations: [Other reasons for seeking consultation] 06-05-2023 Episodic Genitourinary symptoms and ill-defined conditions (3 sources) Dysuria; Translations: [Dysuria] 03-21-2023 Episodic Headache; including migraine (4 sources) Headache; Translations: [Headache] 03-21-2023 Episodic Malaise and fatigue (2 sources) Fatigue; Translations: [Other fatigue] 06-05-2023 Episodic Menstrual disorders (14 sources) Dysmenorrhea; Translations: [Dysmenorrhea, unspecified] 08-03-2020 Chronic Mood disorders (2 sources) Depressive disorder; Translations: [Depression] 06-05-2023 Chronic Nausea and vomiting (11 sources) Nausea; Translations: [Nausea] 04-17-2018 Episodic Other bone disease and musculoskeletal deformities (2 sources) Adolescent idiopathic scoliosis of lumbar spine; Translations: [Adolescent idiopathic scoliosis, lumbar region] Onset: 12-10-2015 12-10-2015 Chronic Other female genital disorders (4 sources) Dyspareunia; Translations: [Dyspareunia] 04-26-2023 Chronic Other female genital disorders (2 sources) Abnormal uterine bleeding; Translations: [Abnormal uterine and vaginal bleeding, unspecified] 05-14-2023 Chronic Other female genital disorders (3 sources) Abnormal uterine and vaginal bleeding, unspecified; Translations: [Unspecified disorders of menstruation and other abnormal bleeding from female genital tract] Onset: 08-12-2024 05-14-2023 Chronic Other gastrointestinal disorders (2 sources) Irritable bowel syndrome; Translations: [Irritable bowel syndrome without diarrhea] 04-26-2023 Chronic Other gastrointestinal disorders (2 sources) Irritable bowel syndrome without diarrhea; Translations: [Irritable bowel syndrome] 04-26-2023 Chronic Other gastrointestinal disorders (2 sources) Diarrhea; Translations: [Diarrhea, unspecified] Episodic Other gastrointestinal disorders (1 source) Diarrhea, unspecified; Translations: [Diarrhea] Episodic Other injuries and conditions due to external causes (1 source) Unspecified injury of nose, initial encounter; Translations: [Unspecified injury of nose, initial encounter] Onset: 12-05-2024 Episodic Other nutritional; endocrine; and metabolic disorders (8 sources) Loss of appetite; Translations: [Anorexia] 04-17-2018 Episodic Other nutritional; endocrine; and metabolic disorders (1 source) Weight gain; Translations: [Abnormal weight gain] 06-05-2023 Episodic Other nutritional; endocrine; and metabolic disorders (1 source) Abnormal weight gain; Translations: [Abnormal weight gain] 06-05-2023 Episodic Other skin disorders (8 sources) Acne; Translations: [Acne, unspecified] 11-04-2020 Episodic Other upper respiratory disease (3 sources) Respiratory tract congestion; Translations: [Other specified diseases of upper respiratory tract] 03-21-2023 Episodic Residual codes; unclassified (2 sources) Generalized aches and pains; Translations: [Pain, unspecified] Episodic Residual codes; unclassified (1 source) Other general symptoms and signs; Translations: [Other general symptoms and signs] Onset: 10-08-2024 Episodic Skin and subcutaneous tissue infections (1 source) Impetigo bullosa; Translations: [Bullous impetigo] 11-27-2022 Episodic Unclassified (1 source) Cough, unspecified; Translations: [Cough, unspecified] Onset: 03-28-2024 Past or Other Problems Problem Classification Problem Date Documented Date Episodic/Chronic Allergic reactions (1 source) Allergic contact dermatitis, unspecified cause; Translations: [Allergic contact dermatitis, unspecified cause] Onset: 08-05-2024 Episodic Contraceptive and procreative management (2 sources) Encounter for contraceptive management, unspecified; Translations: [Unspecified contraceptive management] Onset: 06-24-2024 08-10-2022 Episodic Fever of unknown origin (1 source) Fever, unspecified; Translations: [Fever, unspecified] Onset: 02-27-2024 Episodic Immunizations and screening for infectious disease (10 sources) Patient encounter status; Translations: [Encounter for screening for COVID-19] Onset: 06-10-2024 03-01-2022 Episodic Influenza (1 source) Influenza due to other identified influenza virus with other respiratory manifestations; Translations: [Influenza due to other identified influenza virus with other respiratory manifestations] Onset: 02-27-2024 Episodic Other upper respiratory infections (20 sources) Acute sinusitis; Translations: [Acute sinusitis, unspecified] Onset: 04-30-2024 Episodic Spondylosis; intervertebral disc disorders; other back problems (4 sources) Radiculopathy, lumbar region; Translations: [Radiculopathy, lumbar region] Onset: 05-22-2024 Episodic Results Test Name Value Interpretation Reference Range Facility Nasal Bones min 3 Viewson Nasal Bones min 3 Views [facility] Imaging Services [address] [place], [place] [id number] Nasal Bones min 3 Views MR#: [id number] Acct: [id number] Name: LETY ALVES Rep #: [id number] : 2005 F 19 From: Adam Matute PCP: Wm Bedolla [facility] Status: REG CLI Study: Nasal Bones min 3 Views Date of Exam: 11/12/24 Exam# [id number] Ordering Dr: Kaushik Rincon PROCEDURE: NASAL BONES MIN 3 VIEWS 11/12/2024 REASON FOR EXAM: NOSE INJURY TECHNIQUE: Procedure Code: RADNB Modality: DX Procedure: NASAL BONES MIN 3 VIEWS COMPARISON: None. RAD/Nasal Bones min 3 Views IMPRESSION: Visualized paranasal sinuses appear clear. No fracture or dislocation is noted. If clinical concern persists, short-term follow-up imaging may be obtained to rule out a currently occult fracture. Reading Location: [id number] CC: ANY Hahn; Wm [facility] Graeme Fusion Operator: Signed Normal [facility] Urgent Care Visit Reporton 1 Urgent Care Visit Report [facility] [address], [address] [place] [address] OFFICE VISIT Date of Service: 11/12/24 MR#: [id number] Acct: [id number] Name: LETY ALVES Rep #: [id number] : 2005 Provider: ANY Hahn Age/Sex: 19/F Location: [facility] Status: Signed Intake Vital Signs 06/24/24 15:27 11/12/24 13:49 Height 5 ft 2 in 5 ft 2 in Weight: 163 lb BMI 29.8 BP 122/70 H Blood Pressure Location Lt brachial Position Sitting Pulse 86 Pulse Source Monitor Temp 98.5 F Temp Source Oral Pulse Oximetry (%) 99 Oxygen Delivery Method room air Intake Visit Reasons: NOSE INJURY Chief Complaint: Nose Injury Accompanied by: Self Allergies amoxicillin Adverse Reaction (Severe, Verified 11/12/24 13:44) loose stools Medications ???Medication ???Instructions ???Recorded ???Confirmed ???Type etonogestrel 0.12 mg-ethinyl 1 vag ring vaginal Q4W #3 ea 06/2411/12/24 Rx estradiol 0.015 mg/24 hr vaginal ring (NuvaRing) Nurse's Note: Patient's dog bopped patient in the face. Patient's rottweiler was excited and and hit his head onto patient's nose. Nose was bleeding, woke this morning and nose was still bleeding. Still painful. Taking ibuprofen this AM. 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 well-balanced diet: about half the time what type of physical activity do you participate in: walking, weight training and other seatbelt use: always do you feel safe at home: Yes HPI HPI Chief Complaint: Nose Injury Details: LETY ALVES, is a 19 F who presents to the office today for initial evaluation status post nasal bridge trauma occurring late last evening. Patient states while at home her Rottweiler dog bopped patient to the same, causing bilateral nasal epistaxis describing no swelling or blood upon questioning, stating dog was excited and and hit his head onto patient's nose. The bleeding was controlled last evening and then restarted again this morning out of the left nare as she describes and was controlled once again before arrival here today. Patient described also having a moderate headache last evening which has improved slightly since then. No vision changes or otic discharge bilateral at time of injury or symptoms. No cervical complaints or BUE radicular complaints and no LOC/nausea/vomiting at the time of the incident and her symptoms. [id number]-ore-uriuudn ibuprofen taken with minimal assist. No other associated symptoms and no other alleviating/aggravat ing factors. ROS Const Constitutional: No other (As above) Exam Const General: cooperative, healthy appearing and no acute distress Orientation: alert and awake [facility] Head: normal to inspection Ears: hearing grossly normal bilaterally, external ears normal, TM's normal bilaterally and EAC's normal Nose: external nose normal (Except trace ecchymosis with trace absent swelling at nasal bridge), nares normal, septum normal and no nasal discharge Face and sinus: normal facial exam, sinuses nontender and face symmetric Mouth: oral mucosae normal, lip normal, tongue normal, oropharynx normal and moist mucous membranes Teeth and gingiva: dentition normal Throat: posterior oropharynx normal, uvula midline and no postnasal drainage Eyes General: appearance normal, both eyes and all related structures Neck Neck: normal visual inspection, full ROM and no meningeal signs Chest Chest palpation inspection: normal inspection of the chest Resp Effort Inspection: normal respiratory effort and able to speak in complete sentences Cardio Rate: regular rate Pulses: radial pulses present Skin General: no rashes or lesions noted Neuro General: patient alert and patient awake Cognition: normal cognition Speech: speech normal Extrem General: normal to inspection Psych Appearance: grossly normal Mental Status: mental status grossly normal Mood: (more content not included)... Normal [facility] Office Visit Reporton 2024 Office Visit Report [facility] [address] [place] [address] OFFICE VISIT Date of Service: 10/08/24 MR#: [id number] Acct: [id number] Patient: LETY ALVES Rep #: [id number] : 2005 Provider: ANY Tate Age/Sex: 18/F [facility] Status: Signed Intake Vital Signs 06/24/24 15:27 10/08/24 07:49 Height 1.57 m Weight: 76.204 kg BP 143/80 H Blood Pressure Location Rt brachial Position Sitting Pulse 93 Pulse Source Monitor Temp 98.6 F Temp Source Temporal Pulse Oximetry (%) 97 Oxygen Delivery Method room air Intake Visit Reasons: COVID/ SYMPTOMS/ WANTS A TEST Chief Complaint: cough, n/v/d Allergies amoxicillin Adverse Reaction (Severe, Verified 10/08/24 07:52) loose stools Medications ???Medication ???Instructions ???Recorded ???Confirmed ???Type etonogestrel 0.12 mg-ethinyl 1 vag ring vaginal Q4W #3 ea 06/2406/24/24 Rx estradiol 0.015 mg/24 hr vaginal ring (NuvaRing) azithromycin 250 mg tablet See Rx Instructions PO .COMPLEX #6 10/08/24 10/08/24 Rx (Zithromax Z-Almas) tabs ondansetron HCl 4 mg tablet 4 mg PO Q6H PRN nausea and 5 10/08/24 Rx vomiting #20 tabs PFSH Medical History (Updated 10/08/24 @ 08:48 by ANY Wang) Allergic dermatitis Congestion of nasal sinus Coughing H/O infectious mononucleosis Scoliosis Surgical History History of cholecystectomy Family History Grandfather Heart disease Unknown H/O blood clots Grandmother Diabetes Social History household members: significant other housing: house 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 well-balanced diet: about half the time what type of physical activity do you participate in: walking, weight training and other seatbelt use: always do you feel safe at home: Yes HPI HPI Chief Complaint: cough, n/v/d Details: LETY ALVES, is a 18 F who presents to the office today for cough, n/v/d. She has been sick about 3 days. She has fever up to 102F, sweats, nasal congestion, BL earache R>L, cough, and chest congestion. She states the ear pain is severe. She also has N/V/D. Her boyfriend was recently sick with the same. ROS Const Constitutional: Positive for body ache, chills, excessive sweating, fatigue and fever(s) ENT ENT: Positive for ear or mastoid pain and nasal congestion; No sore throat Resp Respiratory: Positive for cough and chest congestion; No shortness of breath or wheezing Cardio Cardiology: Positive for excessive sweating Gastro GI: Positive for diarrhea, nausea/dyspepsia and vomiting Endo Endocrine: Positive for excessive sweating and fatigue Aller/Imm Allergy/Immunologic: No wheezing Exam Const General: cooperative, healthy appearing, comfortable, no acute distress, well developed and well groomed Nutritional Appearance: average body habitus and well nourished Orientation: alert, awake and oriented x3 HENMT Head: normocephalic and atraumatic Ears: TM abnormal (R>L) bulging and erythematous Nose: mucous membranes and turbinates abnormal boggy and erythematous and nasal discharge Throat: tonsils normal, uvula midline and postnasal drainage Resp Effort Inspection: normal respiratory effort, able to speak in complete sentences, symmetric chest movement and cough Auscultation: Bilateral: Clear to Auscultation Cardio Rate: regular rate Rhythm: regular rhythm Heart Sounds: no murmurs Results POC CHAITANYA CoV-2 PCR POC CHAITANYA CoV-2 PCR Not Detected Last Edit by Chrissy Sanchez on 10/08/24 08:06 POC FLU A B Office Flu A B Negative FLU A B Last Edit by Chrissy Sanchez on 10/08/24 08:06 Coding Level of Care Code Off vis,est,level 3 Diagnoses Viral gastroenteritis A08.4 Bilateral acute otitis media H66.93 Assessment and Plan Assessment and Plan (1) Viral gastroenteritis: Status: Acute Plan: zofran prn nausea. hydrate and rest. (2) Bilateral acute otitis media: Status: Acute Plan: Her rapid flu and covid tests are negative at this time. She appears to have a viral URI and gastroenteritis but developed severe ear pain with marked inflammation of the TMs bilaterally on exam. Therefore she will be placed on azithromycin for bilateral acute otitis media. Allergic to amox (loose stools, c diff in past). Orders: Orders POC FLU A B Today R68.89 - O (more content not included)... Normal [facility] Pelvic w/ Transvaginalon Pelvic w/ Transvaginal [facility] [address] [place] [address] Pelvic w/ Transvaginal MR#: [id number] Acct: [id number] Name: LETY ALVES Rep #: [id number] : 2005 F 18 From: Ty Reed MD PCP: Wm Bedolla [facility] Status: REG CLI Study: Pelvic w/ Transvaginal Date of Exam: 08/08/24 Exam# [id number] Ordering Dr: Angela Boogie CNM PROCEDURE: PELVIC W/ TRANSVAGINAL 08/08/2024 REASON FOR EXAM: AUB TECHNIQUE: PELVIC W/ TRANSVAGINAL COMPARISON: Pelvic ultrasound on 05/09/2023. FINDINGS: Measurements: Uterus: 7.6 x 3.6 x 5.7 cm for volume of 81.1 mL Endometrial Thickness: 0.5 cm Right Ovary: 3.0 x 1.8 x 1.5 cm for volume of 4.2 mL Left Ovary: 2.9 x 2.5 x 2.6 cm for volume of 9.9 mL Uterus: Anteverted. Normal contour and myometrial echotexture. Endometrium: Normal echotexture. Right ovary: Normal size and echotexture. Left ovary: Normal size and echotexture. Other adnexal findings: None. Cul-de-sac: No free intraperitoneal fluid identified. Color Doppler: Normal color flow doppler signal at both ovaries. US/Pelvic w/ Transvaginal IMPRESSION: NORMAL TRANSABDOMINAL AND TRANSVAGINAL PELVIC ULTRASOUND WITH DOPPLER. Reading Location: [facility] CC: ZELALEM Boogie; Wm [facility] Graeme Fusion Operator: Signed Normal [facility] Urgent Care Visit Reporton 0 08-05-2024 Urgent Care Visit Report [facility] [address], [address] [place] [address] OFFICE VISIT Date of Service: 08/05/24 MR#: [id number] Acct: [id number] Name: LETY ALVESSRIDHARDOMINIC Rep #: [id number] : 2005 Provider: ANY Hahn Age/Sex: 18/F Location: [facility] Status: Signed Intake Vital Signs 06/24/24 15:27 08/05/24 12:23 Height 5 ft 2 in BP 122/78 H Blood Pressure Location Lt brachial Position Sitting Respiration 14 Pulse 68 Pulse Source Auscultation Temp 98.2 F Temp Source Oral Intake Visit Reasons: ITCHING EVERYWHERE Chief Complaint: Lumbar spine pain Allergies amoxicillin Adverse Reaction (Severe, Verified 06/24/24 15:26) loose stools [facility] Medical History (Updated 08/05/24 @ 12:27 by Kaushik AGARWAL, PA) Allergic dermatitis Congestion of nasal sinus Coughing H/O infectious mononucleosis Scoliosis Surgical History History of cholecystectomy Family History Grandfather Heart disease Unknown H/O blood clots Grandmother Diabetes Social History household members: significant other housing: house 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 Patient noted the symptoms persist after washing last evening, therefore instructed by the mother to take oral Benadryl and see how she did upon awakening this morning; oral Zyrtec this morning did not help as well. She notes itching persists and therefore is here for further evaluation. She notes that the rash is not necessarily exacerbated after taking a hot shower or worsening upon awakening early this morning. Nonetheless her rash has been persistent to bilateral hands back chest and legs. No complaint of constricted/pruritic airway or difficulty swallowing/drooling and no complaints of chest pressure/shortness of breath/dyspnea on exertion. ROS Const Constitutional: No other (As above) Exam Const General: cooperative, healthy appearing and no acute distress Orientation: alert and awake HENMT Head: normal to inspection Ears: external ears normal Nose: external nose normal Eyes General: appearance normal, both eyes and all related structures Neck Neck: normal visual inspection and no meningeal signs Chest Chest palpation inspection: normal inspection of the chest Resp Effort Inspection: normal respiratory effort and able to speak in complete sentences Cardio Rate: regular rate Pulses: radial pulses present Skin General: no rashes or lesions noted (Erythematous flat macules and hives to bilateral hands, A/P torso, BUE, BLE) Neuro General: patient alert and patient awake Cognition: normal cognition Speech: speech normal Extrem General: normal to inspection Psych Appearance: grossly normal Mental Status: mental status grossly normal Mood: congruent mood Affect: normal affect Speech and Movement: speech and movement normal Attitude: cooperative Coding Level of Care Code Off vis,est,level 3 Diagnoses Allergic dermatitis L23.9 Assessment and Plan Assessment and Plan (1) Allergic dermatitis: Status: Acute Plan: Prednisone as prescribed today. Continue iryn-ego-aqwlcsc and histamines such as Benadryl and Zyrtec as needed. Supportive/linen and skin care measures as instructed today. Follow-up with PCP in 3 to 5 days should symptoms not resolve, ED sooner should symptoms only worsen or any other concerns develop. Patient states acknowledging understanding all the above. This note was generated with [employer] dictation software. It may contain incorrect words, spelling, and punctuation that were not noted in checking the note before signing. Medications: New prednisone 4 tablets daily x3 days, then 3 tablets daily x3 days, then 2 tablets daily x3 days, then 1 tablet daily x3 days 10 mg PO DAILY 30 tabs 0RF 08/05/24 1228 Date __ (more content not included)... Normal [facility] Hand Method Lasting Machine Operator Office Visit Reporton 06-24-2024 Hand Method Lasting Machine Operator Office Visit Report [facility] [address] [place] [address], [address] [place] [address] OFFICE VISIT Date of Service: 06/24/24 MR#: [id number] Acct: [id number] Name: LETY ALVES Rep #: [id number] : 2005 Provider: ZELALEM godinez Age/Sex: 18/F Location: [facility] Status: Signed Intake Vital Signs 06/06/24 09:59 06/24/24 15:25 06/24/24 15:27 Height 5 ft 2 in 5 ft 2 in 5 ft 2 in Weight: 169 lb 2 oz 174 lb BMI 30.9 31.8 BP 117/82 H 141/83 H Intake Visit Reasons: IUD removal/ nuva ring Knife Machine Operator Required: No Is patient in pain?: No Allergies amoxicillin Adverse Reaction (Severe, Verified 06/24/24 15:26) loose stools Medications ???Medication ???Instructions ???Recorded ???Confirmed ???Type etonogestrel 0.12 mg-ethinyl 1 vag ring vaginal Q4W #3 ea 06/2406/24/24 Rx estradiol 0.015 mg/24 hr vaginal ring (NuvaRing) Post menopausal: No Patient : No : No Control Method: ena- 2022 [facility] Medical History Congestion of nasal sinus Coughing H/O infectious mononucleosis Scoliosis Surgical History History of cholecystectomy Family History Grandfather Heart disease Unknown H/O blood clots Grandmother Diabetes Social History household members: significant other housing: house 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 well-balanced diet: about half the time what type of physical activity do you participate in: walking, weight training and other seatbelt use: always do you feel safe at home: Yes HPI IUD removal/ nuva ring Details: LETY ALVES is a 18 year old who presents for IUD removal Exam Const General: cooperative and comfortable Resp Effort Inspection: normal respiratory effort and able to speak in complete sentences GI Inspection: normal to inspection Palpation: soft External Female Exam: normal appearance of the urethra Urethra: normal appearance of the urethra Speculum Exam - Vagina: normal appearance of the vagina Speculum Exam - Cervix: normal appearance of the cervix (iud strings present) Skin General: no rashes or lesions noted Office Procedures IUD Removal IUD Removal Details: Sign out documentation: Completed Procedure: Speculum placed in vagina, IUD string visualized and grasped with ring forceps. IUD easily removed in its entirety and patient tolerated well. Coding Level of Care Code Attention Kavon Diagnoses Encounter for insertion of intrauterine contraceptive device (IUD) Z30.430 Contraceptive encounter type: IUD management IUD management: insertion Comment iud removal Assessment and Plan Assessment and Plan (1) Contraception management: Status: Acute Qualifiers: Contraceptive encounter type: IUD management IUD management: insertion Qualified Code(s): Z30.430 - Encounter for insertion of intrauterine contraceptive device Comment: IUD removed and nuvaring order placed and started today. Plan: ACHES reviewed. nuvaring to start today. Medications: New etonogestrel-ethinyl estradiol 0.12-0.015 mg/24 hr (NuvaRing) leave in place for 3 weeks of a 4-week cycle 1 vag ring vaginal Q4W 3 ea 5RF 06/24/24 1556 Date Angela Boogie CNM Cosigner Signature: Date (if applicable) CC: Normal [facility] Chlamydia/GC RYAN aptimaon CHLAMY,NUC ACID Negative Normal Negative [facility] Comment on above: Performed By: #### L 7000.1800 ####[facility] [id number] [place], [place], [address] GC BY NUC ACID Negative Normal Negative [facility] Comment on above: Result Comment: Perf ormed at: =G - [facility] [address], [place] [id number] Cloud Automation Tester: Pinyk Vazquez MD, Phone: [phone] Performed By: #### L 7000.1800 ####[facility] [id number] [place], [place], [address] Hand Method Lasting Machine Operator Office Visit Reporton 06-06-2024 Hand Method Lasting Machine Operator Office Visit Report [facility] [address], [address] [place] [address] OFFICE VISIT Date of Service: 06/06/24 MR#: [id number] Acct: [id number] Name: LETY ALVES Rep #: [id number] : 2005 Provider: ZELALEM godinez Age/Sex: 18/F Location: [facility] Status: Signed Intake Vital Signs 04/21/24 09:05 05/22/24 14:58 06/06/24 09:59 Height 5 ft 2 in 5 ft 2 in 5 ft 2 in Weight: 169 lb 169 lb 2 oz BMI 30.9 30.9 BP 113/80 117/82 H Blood Pressure Location Lt brachial Position Sitting Pulse 80 Pulse Source Monitor Temp 98.6 F Pulse Oximetry (%) 99 Intake Visit Reasons: IUD periodic pain and bleeding Knife Machine Operator Required: No Is patient in pain?: No Allergies amoxicillin Adverse Reaction (Severe, Verified 06/06/24 09:57) loose stools Medications ???Medication ???Instructions ???Recorded ???Confirmed ???Type multivitamin 1 tab PO DAILY 09/12/23 06/06/24 H istory ondansetron HCl 4 mg tablet 4 mg PO Q6H PRN nausea and 5 06/06/24 Rx vomiting #20 tabs hydroxyzine HCl 10 mg tablet 10 mg PO TID PRN anxiety #30 tabs 04/16/24 06/06/24 Rx methocarbamol 500 mg tablet 500 mg PO TID PRN pain/spasms #60 05/22/24 06/06/24 Rx tabs Post menopausal: No Patient : No : No Control Method: 2022 [facility] Medical History Congestion of nasal sinus Coughing H/O infectious mononucleosis Scoliosis Surgical History History of cholecystectomy Family History Grandfather Heart disease Unknown H/O blood clots Grandmother Diabetes Social History household members: significant other housing: house 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 well-balanced diet: about half the time what type of physical activity do you participate in: walking, weight training and other seatbelt use: always do you feel safe at home: Yes HPI IUD periodic pain and bleeding Details: LETY ALVES is a 18 year old who presents for frequent IUD spotting. has not had any vaginal bleeding for 2 years, dec/jan had increased episode of vaginal bleeding, no clots. was able to feel strings. since then has had multiple times per week with vaginal spotting. no changes in sexual partners. no change in medical history. Exam Const General: cooperative and comfortable Resp Effort Inspection: normal respiratory effort and able to speak in complete sentences GI Inspection: normal to inspection Palpation: soft External Female Exam: normal appearance of the urethra Urethra: normal appearance of the urethra Speculum Exam - Vagina: normal appearance of the vagina Speculum Exam - Cervix: normal appearance of the cervix Skin General: no rashes or lesions noted Coding Level of Care Code Off vis,est,level 3 Diagnoses Abnormal uterine bleeding (AUB) N93.9 Pelvic pain R10.2 Assessment and Plan Assessment and Plan (1) Abnormal uterine bleeding (AUB): Status: Acute Comment: desires to continue IUD. interested in low dose OCP if irregular bleeding continues. hold for now and wants symptom management for cramping/nausea. - gc/ct obtained today. -will use lubrication for next 2 weeks. (2) Pelvic pain: Status: Acute Comment: TVUS for IUD with pain for placement check. strings 3-4cm Orders: Orders Chlamydia/GC RYAN aptima Today Z20.2 - Contact with and (suspected) exposure to infections with a predominantly sexual mode of transmission Pelvic (Non ) Today R10.2 - Pelvic and perineal pain 06/06/24 1101 Date Angela Boogie CNM Cosigner Signature: Date (if applicable) CC: Normal [facility] Orthopedic Visit Reporton Orthopedic Visit Report [facility] [address] [place] [address] OFFICE VISIT Date of Service: 05/22/24 MR#: [id number] Acct: [id number] Name: LEONALETY JORDI Rep #: [id number] : 2005 Provider: ANY Sofia Age/Sex: 18/F Location: [facility] Status: Signed Intake Vital Signs 04/21/24 09:05 05/22/24 14:58 Height 5 ft 2 in 5 ft 2 in Weight: 169 lb 165 lb BMI 30.9 30.2 BP 113/80 Blood Pressure Location Lt brachial Position Sitting Pulse 80 Pulse Source Monitor Temp 98.6 F Temp Source Temporal Pulse Oximetry (%) 99 Intake Visit Reasons: LUMBAR SPINE Chief Complaint: Lumbar spine pain Accompanied by: self Is patient in pain?: Yes Pain scale (1-10): 4 Allergies amoxicillin Adverse Reaction (Severe, Verified 05/22/24 15:01) loose stools Medications ???Medication ???Instructions ???Recorded ???Confirmed ???Type multivitamin 1 tab PO DAILY 09/12/23 05/22/24 H istory ondansetron HCl 4 mg tablet 4 mg PO Q6H PRN nausea and 5 05/22/24 Rx vomiting #20 tabs hydroxyzine HCl 10 mg tablet 10 mg PO TID PRN anxiety #30 tabs 04/16/24 05/22/24 Rx methocarbamol 500 mg tablet 500 mg PO TID PRN pain/spasms #60 05/22/24 05/22/24 Rx tabs Have you fallen in the past year?: No PFSH Medical History Congestion of nasal sinus Coughing H/O infectious mononucleosis Scoliosis Surgical History History of cholecystectomy Family History Grandfather Heart disease Unknown H/O blood clots Grandmother Diabetes Social History household members: significant other housing: house 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 well-balanced diet: about half the time what type of physical activity do you participate in: walking, weight training and other seatbelt use: always do you feel safe at home: Yes HPI LUMBAR SPINE Details: This documentation accurately reflects the service provided and the decisions made by me, ANY Sofia 05/22/24 7410. Part of today???s visit was documented by Tonya Gonsalez MA, acting as scribe. LETY ALVES is a 18 year old F here today for lumbar spine pain. Pain (location, quality, quantity, radiation):The pain is in the lower back on the right side. Denies any radicular symptoms. Denies any numbness tingling or burning. Onset (date, injury, precipitating event):This started last summer at her work, she lifted a heavy dog and felt a sharp. Patient had an MRI on 09/03/2023. Says that a week ago she was very active with work and felt that her symptoms that worse. She has seen a chiropractor since PT. Thinks that chiropractor was beneficial at first but her last session like it made her pain worse and at this point does not feel like she will be going back to the chiropractor. Prior Hx (injury, surgery, prior issues with extremity):Denies any injury or surgeries. Denies any numbness or tingling in the legs. Aggravating factor (position, tasks):Bending, twisting, sitting to standing, or standing to sitting makes the pain worse. 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 Sitting too long would cause right sided numbness and tingling, not recently. Treatments (ice/heat , Medication, injections, home exercises):Dr. Mack did refer her to Dr. Tirado. When she saw Dr. Tirado he wanted her to do some physial therapy. Patient went to physical therapy in August-November of last year. The physical therapy did help. Dr. Mack did refer her to Dr. Tirado. No injections with pain management. Ortho Exam General General: Yes no acute distress Neurologic: Yes alert and Yes oriented x3 Spine SPINE TESTING CERVICAL THORACIC LUMBAR Musculoskeletal Strength 0=absent - 5=normal Details: Neurological exam of the lower extremities shows 5x5 power. Normal sensations across all dermatomes. No hyperreflexia. There is mild midline tenderness in right paraspinal tenderness. Coding Level of Care Code Off vis,est,level 3 Diagnoses Spondylolisthesis, lumbar region M43.16 Adolescent idiopathic scoliosis of lumbar region M41.126 Scoliosis type: idiopathic Idiopathic scoliosis type: adolescent Spinal region: lumbar Assessment an (more content not included)... Normal [facility] Culture, Throaton 04-23-2024 CUT Normal throat tali isolated. No beta-hemolytic streptococcus isolated. Normal [facility] Comment on above: Performed By: #### M 100.1000 ####[facility] [id number] [place], [address] Office Visit Reporton 2024 Office Visit Report [facility] [address] [place] [address] OFFICE VISIT Date of Service: 04/21/24 MR#: [id number] Acct: [id number] Patient: LETY ALVES Rep #: [id number] : 2005 Provider: ANY Tate Age/Sex: 18/F [facility] Status: Signed Intake Vital Signs 04/16/24 14:29 04/21/24 09:05 Height 1.57 m 1.57 m Weight: 76.657 kg BMI 30.9 BP 113/80 113/80 Blood Pressure Location Lt brachial Lt brachial Position Sitting Sitting Respiration 16 Pulse 96 80 Pulse Source Monitor Monitor Temp 98.6 F Temp Source Temporal Pulse Oximetry (%) 99 Intake Visit Reasons: STREP Chief Complaint: sore throat, body aches Allergies amoxicillin Adverse Reaction (Severe, Verified 04/21/24 09:06) loose stools Medications ???Medication ???Instructions ???Recorded ???Confirmed ???Type multivitamin 1 tab PO DAILY 09/12/23 04/21/24 H istory ondansetron HCl 4 mg tablet 4 mg PO Q6H PRN nausea and 5 04/21/24 Rx vomiting #20 tabs hydroxyzine HCl 10 mg tablet 10 mg PO TID PRN anxiety #30 tabs 04/16/24 04/21/24 Rx lamotrigine 25 mg tablet 25 mg PO QDAY 14 days #46 tabs 07/0604/21/24 Rx PFSH Medical History Congestion of nasal sinus Coughing H/O infectious mononucleosis Scoliosis Surgical History History of cholecystectomy Family History Grandfather Heart disease Unknown H/O blood clots Grandmother Diabetes Social History household members: significant other housing: house 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 well-balanced diet: about half the time what type of physical activity do you participate in: walking, weight training and other seatbelt use: always do you feel safe at home: Yes HPI HPI Chief Complaint: sore throat, body aches Details: LETY ALVES, is a 18 F who presents to the office today for sore throat. Sore throat began yesterday. She has felt unwell since . Since she had fever, fatigue, body aches, nausea and vomiting. She has occasional cough with SOB. Dad recently had influenza B. She is also concerned that her symptoms may be a result of medication withdrawal. She recently stopped wellbutrin and is preparing to start lamictal. She notes that since stopping wellbutrin she feels fatigued, nauseous and vomits. Last vomited sunday. She has an rx for zofran which helps somewhat. When she changed a psych med in the past she had similar withdrawal symptoms. Exam Const General: cooperative, healthy appearing, comfortable, no acute distress, well developed and well groomed Nutritional Appearance: average body habitus and well nourished Orientation: alert, awake and oriented x3 HENMT Head: normocephalic and atraumatic Ears: hearing grossly normal bilaterally, external ears normal and TM's normal bilaterally Nose: external nose normal and nares normal Throat: tonsils normal, uvula midline and posterior oropharynx abnormal (mild erythema) Neck Lymphatic: no lymphadenopathy noted Resp Effort Inspection: normal respiratory effort, able to speak in complete sentences, symmetric chest movement and no cough Auscultation: Bilateral: Clear to Auscultation Cardio Rate: regular rate Rhythm: regular rhythm Heart Sounds: no murmurs Results POC FLU A B Office Flu A B Negative FLU A B Last Edit by Chrissy Sanchez on 04/21/24 09:28 Coding Level of Care Code Off vis,est,level 2 Diagnoses Pharyngitis J02.9 Medication withdrawal F19.939 Assessment and Plan Assessment and Plan (1) Pharyngitis: Status: Acute (2) Medication withdrawal: Status: Acute Plan: Rapid flu test is negative. Tonsils are unremarkable. Centor criteria 0/5. Throat culture obtained - send out will follow. Pt has withdrawal from wellbutrin with nausea vomiting and fatigue. Sore throat likely due to vomiting. Pt already has zofran. Recommended utilizing zofran appropriately and staying well hydrated. Call psychiatrist for other withdrawal management. Pt does not want to see prior psychiatrist due to disatisfaction with care. Recommended [facility] for alternative provider if she is looking to change practices. Orders: Orders POC FLU A B Today R68.89 - Other general symptoms and signs 04/21/24 0958 Date (more content not included)... Normal [facility] MR/BMS.BPon 04-16-2024 MR/BMS.BP [facility], [address] [place] [address] OFFICE VISIT Date of Service: 04/16/24 MR#: [id number] Acct: [id number] Name: LETY ALVES Rep #: [id number] : 2005 Provider: SHARON mina Age/Sex: 18/F Location: [facility].BP Status: Signed Intake Vital Signs 01/22/24 13:37 02/27/24 13:08 04/16/24 14:29 Height 5 ft 2 in 5 ft 2 in 5 ft 2 in BP 113/80 Blood Pressure Location Lt brachial Position Sitting Respiration 16 Pulse 96 Pulse Source Monitor BP Intake Visit Reasons: 6 wk FU Accompanied by: Self Allergies amoxicillin Adverse Reaction (Severe, Verified 04/16/24 15:08) loose stools Medications ???Medication ???Instructions ???Recorded ???Confirmed ???Type multivitamin 1 tab PO DAILY 09/12/23 04/16/24 H istory ondansetron 4 mg disintegrating 4 mg PO Q6H PRN nausea and 4 04/16/24 Rx tablet vomiting #30 tabs ondansetron HCl 4 mg tablet 4 mg PO Q6H PRN nausea and 5 04/16/24 Rx vomiting #20 tabs ondansetron 4 mg disintegrating 4 mg PO Q6H PRN nausea and 5 04/16/24 Rx tablet vomiting #20 tabs hydroxyzine HCl 10 mg tablet 10 mg PO TID PRN anxiety #30 tabs 04/16/24 04/16/24 Rx lamotrigine 25 mg tablet 25 mg PO QDAY 14 days #46 tabs 07/0604/16/24 Rx PFSH Medical History Congestion of nasal sinus Coughing H/O infectious mononucleosis Scoliosis Surgical History History of cholecystectomy Family History Grandfather Heart disease Unknown H/O blood clots Grandmother Diabetes Social History household members: significant other housing: house 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 well-balanced diet: about half the time what type of physical activity do you participate in: walking, weight training and other seatbelt use: always do you feel safe at home: Yes HPI History of Present Illness History provided by: patient Chief complaint: Anxiety/Depression HPI: Lety Alves is a 18 year old female patient presenting today for a follow up evaluation. States she does not feel her medication has been beneficial for her. Does report feeling nauseous when she is taking her medication. Does feel she has seen improvements with this but it is not gone completely. Does report a decrease in appetite with medication as well and has been unable to eat after she takes it. Does try to eat before she take the medication and then eats a small dinner. States she has not been sleeping well with use of medication. Has tried adjusting timing of medication but does not feel that has provided additional benefit. States she has not noticed a decrease with panic or anxiety with medication use. Does not feel she has seen benefit with mood stabilization or bad thoughts. States she is feeling more but the feelings are not good feelings. Is feelings depressed daily with current medication. Admits to some passive SI which occurs situationally. Denies plan or intent. Admits to heightened feelings of guilt. Admits to increase irritability. Admits to feelings of anxiety every day, especially when she has a large amount of social activities to do. Is struggling to fall asleep and stay asleep. 5 hours on average. Does not feel well rested. Has been having nightmares. Previous similar episode: Yes Age of first onset of symptoms: 0-10 years Review of Systems Constitutional Reports: change in weight (Gain 50 lb after starting Prozac and Lexapro use over 4 mos. ) and fatigue; Denies: fever(s) Eyes Denies: change in vision, blurry vision, photophobia, eye discomfort or eye discharge Ears, Nose, Mouth, Throat Reports: nasal congestion (Seasonal allergies, leoncio) and epistaxis (With increased stress); Denies: dysphagia, hoarseness, ear or mastoid pain, ear discharge, change in hearing, tinnitus or vertigo Cardiovascular Reports: chest pain (w/ anxiety) and dyspnea (w/ anxiety) Respiratory Reports: dyspnea (w/ anxiety); Denies: wheezing Gastrointestinal Reports: abdominal pain (w/anxiety), nausea (w/anxiety), vomiting (w/anxiety), heartburn, diarrhea, constipation and bloating; Denies: hematemesis, dysphagia, change in bowel habits or hematochezia Genitourinary Reports: urinary frequency and urinary urgency; Denie (more content not included)... Normal [facility] Urine Cultureon 02-29-2024 URC Mixed Gram Positive Organisms [place] Count 50,000-80,000 MIXC Mixed contaminants. Submit a new specimen if indicated. Normal [facility] Comment on above: Performed By: #### M 100.2200 #### [facility] [address] [place], [place], [id number] Chest PA and Lateralon 02-26 Chest PA and Lateral [facility] Services [address] [place] [address] Chest PA and Lateral MR#: [id number] Acct: [id number] Name: LETY ALVES Rep #: [id number] : 2005 F 18 From: Girish courtney MD PCP: Wm Bedolla [facility] Status: REG ER Study: Chest PA and Lateral Date of Exam: 02/27/24 Exam# [id number] Ordering Dr: Dylan Coronado DO [id number] STUDY: X-RAY CHEST REASON FOR EXAM: Female, 18 years old. Hemoptysis. TECHNIQUE: PA and lateral views of the chest. COMPARISON: None. FINDINGS: The lungs are clear and expanded. There is no demonstrated pleural abnormality. Normal size heart. Normal mediastinum and meera. Normal visualized pulmonary arteries. Normal visualized aortic arch and descending thoracic aorta. There is a dextroscoliosis of the thoracic spine. Normal visualized ribs, clavicles, and shoulders. There is no demonstrated abnormality of the visualized soft tissue structures of the upper abdomen. RAD/Chest PA and Lateral IMPRESSION: Dextroscoliosis. The lungs are clear. Electronically Signed: Girish Tracy MD at 14:24 EST , CC: Dr. Dylan Coronado DO; Wm [facility] Graeme Fusion Operator: Signed Normal [facility] Emergency Department Summary on 02-27-2024 Emergency Department Summary [facility] Medical Records Department [address] [place] [address] Emergency Department Summary 02/27/24 MR#: [id number] Acct: [id number] Name: LETY ALVES Rep #: [id number] : 2005 18 From: Dylan Coronado DO PCP: Wm Bedolla [facility] Status:REG ER Location: ED HPI History of Present Illness Chief Complaint: Cough Narrative Narrative: Patient is a 18-year-old female with no known significant past medical history who presented to the emergency department with a chief complaint of cough, nausea vomiting diarrhea. She also complained of coughing up some blood and vomiting blood as well. Patient states that she has not vomited blood since last night. States that prior to this episode she had a episode of vomiting with no blood and then vomited again and noted that she has small amount of blood. Patient states that she was seen in urgent care yesterday and was told that she probably has the flu and was given Tamiflu but was not formally diagnosed/tested. Patient states that she does not feel nauseous since taking the Zofran last night. Patient denies any blood thinning medications. Patient denies any history of blood clots denies any recent travel history denies any tobacco use. [facility] Medical History Congestion of nasal sinus Coughing H/O infectious mononucleosis Scoliosis Home Medications ???Medication ???Instructions ???Recorded ???Last Taken ???Type multivitamin 1 tab PO DAILY 09/12/23 Unknown History ondansetron 4 mg disintegrating 4 mg PO Q6H PRN nausea and 01/18/24 Unknown Rx tablet vomiting #30 tabs bupropion HCl 150 mg 24 hr tablet, 150 mg PO QAM #30 tabs 01/22/24 Unknown Rx extended release hydroxyzine HCl 10 mg tablet 10 mg PO TID PRN anxiety #30 tabs 01/22/24 Unknown Rx ondansetron HCl 4 mg tablet 4 mg PO Q6H PRN nausea and 02/26/24 Unknown Rx vomiting #20 tabs oseltamivir 75 mg capsule (Tamiflu) 75 mg PO Q12H 5 days #10 caps 02/26/24 Unknown Rx ondansetron 4 mg disintegrating 4 mg PO Q6H PRN nausea and 02/27/24 Unknown Rx tablet vomiting #20 tabs Allergy/AdvReac Type Severity Reaction Status Date / Time amoxicillin AdvReac Severe loose Verified 02/27/24 13:08 stools Family History Grandfather Heart disease Unknown H/O blood clots Grandmother Diabetes Surgical History History of cholecystectomy Social History household members: significant other housing: house 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 well-balanced diet: about half the time what type of physical activity do you participate in: walking, weight training and other seatbelt use: always do you feel safe at home: Yes ROS ROS ED ROS Narrative Constitutional: Patient states that she had a fever yesterday of 102 and took Mucinex and it went away denies any chills, headaches, lightheadedness, dizziness Eyes: Denies change in vision double vision blurry vision Cardiovascular: Complains of some chest comfort especially when she coughs denies palpitations Respiratory: Complains of coughing as noted above denies wheezing or shortness of breath Abdomen: Complains of nausea vomit diarrhea as noted above : Denies any urinary symptoms Neurological: Denies any numbness, weakness, tingling Musculoskeletal: Denies any back pain Skin: Denies rashes or lesions EXAM Physical Exam Narrative Exam Narrative: General: Patient was lying in bed rest comfortably did not appear to be acute distress Head: Atraumatic, normocephalic Eyes: PERRL bilaterally, EOMI bilateral, no conjunctival injection noted Neck: Soft, supple, trachea midline Cardiovascular: Regular rate and rhythm no murmurs gallops rubs are noted Respiratory: Clear to auscultation bilaterally no rales rhonchi or wheezes noted Abdomen: Soft, nondistended, nontender to palpation, bowel sounds present x 4 Extremities: +5/5 strength noted in the bilateral upper and lower extremities, radial pulses +2/4 in the bilateral per extremities, no pedal edema neuroexam Neurological: Patient following commands knew that she was at [facility] year is 2024 Skin: Warm, dry, intact no rashes or lesions noted Const Vital Signs: 02/27/24 13:08 02/27/24 13:22 02/27/24 15:08 Temperature 96.9 F L Temperature Source T (more content not included)... Normal [facility] M100.678on 02-27-2024 M100.678 Copy of report sent to Infection Control Printer [id number] 02/27/24 1502 GLENIS. FLUABV+SARS-CoV-2+RS V Pnl Resp RYAN+probe RESULTS CALLED TO RUBEN Purdy 02/27/24 1503 Maida Holden. REPORT READ BACK BY . FLUABV+SARS-CoV-2+RS V Pnl Resp RYAN+probe FLUABV+SARS-CoV-2+RS V Pnl Resp RYAN+probe SARS-CoV-2 (COVID 19) Negative INFLUENZA A A Positive A INFLUENZA B Negative RSV PCR Negative INFLUENZAE A [facility] Comment on above: Performed By: #### L 400.0001, M100.678, L400.7600 ####[facility] [id number] [facility]. [place], [place], [id number] ,Urineon 02-27-2024 Beta HCG ( test) Ql (U) Negative [facility] Comment on above: Order Comment: CLEAN CATCH Result Comment: Very dilute urine specimens, as indicated by a low specific gravity, may not contain leasing representative levels of hCG. If is still suspected, a first morning urine specimen should be collected 48 hours later and tested. Performed By: #### L 400.0001, M100.678, L400.7600 ####[facility] [id number] [place], [place], [id number] Urinalysis, Completeon 02-26 AMORPHOUS 1+ Normal [facility] Comment on above: Order Comment: CLEAN CATCH Performed By: #### L 400.0001, M100.678, L400.7600 #### [facility] [address] [place], [address] BACTERIA 3+ /hpf Normal None Seen [facility] Comment on above: Order Comment: CLEAN CATCH Performed By: #### L 400.0001, M100.678, L400.7600 #### [facility] [address] [place], [address] EPI,SQUAMOUS 5-10 SEEN Normal 5-10 [facility] Comment on above: Order Comment: CLEAN CATCH Performed By: #### L 400.0001, M100.678, L400.7600 #### [facility] [address] [place], [address] RBC 0-5 SEEN Normal 0-5 [facility] Comment on above: Order Comment: CLEAN CATCH Performed By: #### L 400.0001, M100.678, L400.7600 #### [facility] [address] [place], [address] WBC 5-10 SEEN Normal 0-5 [facility] Comment on above: Order Comment: CLEAN CATCH Performed By: #### L 400.0001, M100.678, L400.7600 #### [facility] [address] [place], [address] Mucus Ql (Urine sed) 0 SEEN Normal [facility] Comment on above: Order Comment: CLEAN CATCH Performed By: #### L 400.0001, M100.678, L400.7600 #### [facility] [address] [place], [address] Office Visit Reporton 2024 Office Visit Report [facility] [address] [place] [address] OFFICE VISIT Date of Service: 02/26/24 MR#: [id number] Acct: [id number] Patient: LETY ALVES Rep #: [id number] : 2005 Provider: ANY Tate Age/Sex: 18/F [facility] Status: Signed Intake Vital Signs 01/22/24 13:37 02/26/24 12:53 Height 1.57 m 1.57 m Weight: 78.018 kg BMI 31.4 BP 114/80 Blood Pressure Location Lt brachial Position Sitting Pulse 110 H Pulse Source Monitor Temp 98.8 F Temp Source Temporal Pulse Oximetry (%) 99 Intake Visit Reasons: FEVER CHILLS, ACHY/ COVID /FLU TEST Chief Complaint: cough, fever Allergies amoxicillin Adverse Reaction (Severe, Verified 02/26/24 12:55) loose stools Medications ???Medication ???Instructions ???Recorded ???Confirmed ???Type multivitamin 1 tab PO DAILY 09/12/23 02/26/24 History ondansetron 4 mg disintegrating 4 mg PO Q6H PRN nausea and 01/18/24 02/26/24 Rx tablet vomiting #30 tabs bupropion HCl 150 mg 24 hr tablet, 150 mg PO QAM #30 tabs 01/22/24 02/26/24 Rx extended release hydroxyzine HCl 10 mg tablet 10 mg PO TID PRN anxiety #30 tabs 01/22/24 02/26/24 Rx ondansetron HCl 4 mg tablet 4 mg PO Q6H PRN nausea and 02/26/24 02/26/24 Rx vomiting #20 tabs oseltamivir 75 mg capsule (Tamiflu) 75 mg PO Q12H 5 days #10 caps 02/26/24 02/26/24 Rx PFSH Medical History Congestion of nasal sinus Coughing H/O infectious mononucleosis Scoliosis Surgical History History of cholecystectomy Family History Grandfather Heart disease Unknown H/O blood clots Grandmother Diabetes Social History (Updated 12/04/23 @ 10:31 by Maida Rocha) household members: significant other housing: house 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 well-balanced diet: about half the time what type of physical activity do you participate in: walking, weight training and other seatbelt use: always do you feel safe at home: Yes HPI HPI Chief Complaint: cough, fever Details: LETY ALVES, is a 18 F who presents to the office today for cough and fever. The patient started feeling ill last night. She has 5 coworkers that currently are sick with influenza A. The patient has severe headache, body aches, fevers, chills, congestion, cough, and SOB. She also has nausea vomiting and diarrhea. ROS Const Constitutional: Positive for body ache, chills, fatigue, fever(s) and headache(s) ENT ENT: Positive for ear or mastoid pain, nasal congestion, headache(s) and sore throat Resp Respiratory: Positive for cough and shortness of breath; No wheezing Gastro GI: Positive for diarrhea, nausea/dyspepsia and vomiting Neuro Neurology: Positive for headache(s) Endo Endocrine: Positive for fatigue Aller/Imm Allergy/Immunologic: No wheezing Exam Const General: cooperative, healthy appearing, comfortable, no acute distress, well developed and well groomed Nutritional Appearance: average body habitus and well nourished Orientation: alert, awake and oriented x3 HENMT Head: normocephalic and atraumatic Ears: hearing grossly normal bilaterally, external ears normal and TM's normal bilaterally Nose: mucous membranes and turbinates abnormal boggy and erythematous and nasal discharge Throat: abnormal tonsil (2+ no exudates) and posterior oropharynx abnormal erythema Resp Effort Inspection: normal respiratory effort, able to speak in complete sentences, symmetric chest movement and cough Auscultation: Bilateral: Clear to Auscultation Cardio Rate: regular rate Rhythm: regular rhythm Heart Sounds: no murmurs Results POC CHAITANYA CoV-2 PCR POC CHAITANYA CoV-2 PCR Not Detected Last Edit by Chrissy Sanchez on 02/26/24 13:04 POC FLU A B Office Flu A B Negative FLU A B Last Edit by Chrissy Sanchez on 02/26/24 13:05 Coding Level of Care Code Off vis,est,level 3 Diagnoses Sore throat J02.9 Influenza A J10.1 Assessment and Plan Assessment and Plan (1) Sore throat: Status: Acute (2) Influenza A: Status: Acute Plan: Patient tested today with rapid tests for flu and covid and these were negative. However the patient has classic symptoms of influenza A and has 5 coworkers currently with influenza A. It is likely that the rapid test is a false negative. The patient is within 48 hour window for tamiflu. S (more content not included)... Normal [facility] MR/BMS.BPon 01-22-2024 MR/BMS.BP [facility] [address] [facility], [address] [place] [address] OFFICE VISIT Date of Service: 01/22/24 MR#: [id number] Acct: [id number] Name: LETY ALVES Rep #: [id number] : 2005 Provider: SHARON mina Age/Sex: 18/F Location: [facility].BP Status: Signed Intake Vital Signs 12/04/23 10:27 01/22/24 13:37 Height 5 ft 2 in 5 ft 2 in Weight: 171 lb BMI 31.2 BP 116/78 Blood Pressure Location Rt brachial Position Sitting Pulse 79 Pulse Source Monitor BP Intake Visit Reasons: 8wfu Allergies amoxicillin Adverse Reaction (Severe, Verified 01/11/24 11:45) loose stools PFSH Medical History Congestion of nasal sinus Coughing H/O infectious mononucleosis Scoliosis Surgical History History of cholecystectomy Family History Grandfather Heart disease Unknown H/O blood clots Grandmother Diabetes Social History (Updated 12/04/23 @ 10:31 by Maida Rocha) household members: significant other housing: house 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 well-balanced diet: about half the time what type of physical activity do you participate in: walking, weight training and other seatbelt use: always do you feel safe at home: Yes HPI History of Present Illness History provided by: patient HPI: Lety Alves is a 18 year old female patient presenting today for a follow up evaluation. Was taking sertraline for about 3 weeks and was having an increase in SI while on the medication. Was thinking about how she would do it, who would find her, etc. and the thoughts were constant. Admits to having an increase in migraines. When she discontinued use she was having headache, vomiting, and diarrhea but it lasted more than 5 days and went to urgent care and they encouraged her to go to be seen by her PCP to be referred to a neurologist. Has been having an increase in depression. Admits to a lack of motivation and does not want to go to work or go to school. Has still been in counseling. Does not have any hobbies she is enjoying. Admits that SI has gone away, for the most part but is much more passive than it was while on sertraline. Denies plan or intent. Was sleeping well with sertraline but has not been since discontinuing. 4 hours per night on average. Wakes up frequently in the middle of the night. Admits to a difficulty with falling asleep as well. Admits to feeling like she has been overeating most days which makes her gain weight and then she feels worse mentally. Anxiety is worse when she is having more vivid nightmares. Has a large amount of fear around her family members passing away. Admits to panic attacks occurring during the day on occasion but feels she is able to bring herself out of it. Previous similar episode: Yes Age of first onset of symptoms: 0-10 years Review of Systems Constitutional Reports: change in weight (Gain 50 lb after starting Prozac and Lexapro use over 4 mos. ) and fatigue; Denies: fever(s) Eyes Denies: change in vision, blurry vision, photophobia, eye discomfort or eye discharge Ears, Nose, Mouth, Throat Reports: nasal congestion (Seasonal allergies, leoncio) and epistaxis (With increased stress); Denies: dysphagia, hoarseness, ear or mastoid pain, ear discharge, change in hearing, tinnitus or vertigo Cardiovascular Reports: chest pain (w/ anxiety) and dyspnea (w/ anxiety) Respiratory Reports: dyspnea (w/ anxiety); Denies: wheezing Gastrointestinal Reports: abdominal pain (w/anxiety), nausea (w/anxiety), vomiting (w/anxiety), heartburn, diarrhea, constipation and bloating; Denies: hematemesis, dysphagia, change in bowel habits or hematochezia Genitourinary Reports: urinary frequency and urinary urgency; Denies: urinary incontinence, hematuria, vaginal discharge or genital pruritis Musculoskeletal Reports: back pain (Hx scoliosis, hx back injury); Denies: extremity pain, joint pain, joint swelling, muscle cramps or muscle weakness Integumentary/Breast Denies: rash, pruritus, changing lesions, non-healing lesions or jaundice Neurological Reports: headache(s); Denies: numbness in extremities, weakness in extremities, vertigo, seizure-like activity or involuntary movements Psychiatric Reports: anxiety, mood swings, panic attacks, change in sleep pattern (Difficulty sleeping, daytime sleepiness), hopel (more content not included)... Normal [facility] Urgent Care Visit Reporton 1 03-12-2023 Urgent Care Visit Report [facility] [address], [address] [place] [id number] OFFICE VISIT Date of Service: 01/11/24 MR#: [id number] Acct: [id number] Name: LETY ALVES Rep #: [id number] : 2005 Provider: ANY Lopez Age/Sex: 18/F Location: [facility] Status: Signed Intake Vital Signs 12/04/23 10:27 01/11/24 11:44 Height 5 ft 2 in Weight: 171 lb BMI 31.2 BP 116/78 104/60 Blood Pressure Location Rt brachial Lt brachial Position Sitting Sitting Respiration 15 Pulse 79 102 H Pulse Source Monitor NIBP Temp 98.6 F Temp Source Oral Pulse Oximetry (%) 99 Oxygen Delivery Method room air Intake Visit Reasons: BA/N/V/D/DIZZINESS Chief Complaint: BA, n/v/d, dizzy 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 recent doubling of Zoloft caused suicidal ideations, pt stopped med without weaning as provider was out of office. pt states provider said s/s MAY be related but should be evaluated medically to rule out viral cause. s/s now intermittent vs constant as before. pt has appt with provider next week to discuss meds, denies current suicidal/homicidal ideations. 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 well-balanced diet: about half the time what type of physical activity do you participate in: walking, weight training and other seatbelt use: always do you feel safe at home: Yes HPI HPI Chief Complaint: BA, n/v/d, dizzy Details: LETY ALVES, is a 18 F who presents to the office today for complaint of bodyaches, nausea, vomiting and diarrhea. Patient did recently have her Zoloft increased from 25 mg to 50 mg and then stopped the medication without tapering due to suicidal ideations. Several days later the patient started having the symptoms and then recently also started having a fever. She denies hematochezia, hematemesis or hemoptysis. She states that all of her suicidal ideations have resolved. She does state that some of her symptoms have improved in particular the nausea and dizziness. No other associated symptoms or alleviating/aggravat ing factors. ROS Const Constitutional: No other (As above) Exam Const General: cooperative and healthy appearing [facility] Head: normocephalic and atraumatic Ears: hearing grossly normal bilaterally Face and sinus: face symmetric Eyes General: appearance normal, both eyes and all related structures Pupils: PERRL Resp Effort Inspection: normal respiratory effort Auscultation: Bilateral: Clear to Auscultation Cardio Rate: regular rate Rhythm: regular rhythm GI Inspection: normal to inspection Auscultation: hyperactive bowel sounds Percussion: normal to percussion Palpation: soft, no hepatosplenomegaly, no guarding and nontender General: bimanual renal exam normal bilaterally and No CVA tenderness Skin General: no rashes or lesions noted Neuro General: patient alert and CN's II-XI intact bilaterally Psych Appearance: grossly normal Mental Status: mental status grossly normal Results POC GEORGINA Covid FluAB PCR POC Georgina Covid PCR Not Detected Last Edit by Leonora Harrison on 01/11/24 12:06 POC GEORGINA FLU NOT DETECTED FLU A B Last Edit by Leonora Harrison on 01/11/24 12:06 Coding Level of Care Code Off vis,est,level 3 Diagnoses Medication withdrawal F19.939 Acute viral syndrome B34.9 Contact with or suspected exposure to other viral communicable (more content not included)... Normal [facility] Orthopedic Visit Reporton Orthopedic Visit Report [facility] [address] [place] [id number] OFFICE VISIT Date of Service: 12/27/23 MR#: [id number] Acct: [id number] Name: LETY ALVESDOMINIC Rep #: [id number] : 2005 Provider: Dr. Hu Mack MD Age/Sex: 18/F Location: [facility] Status: Signed Intake Vital Signs 12/04/23 10:27 Height 5 ft 2 in Weight: 171 lb BMI 31.2 BP 116/78 Blood Pressure Location Rt brachial Position Sitting Pulse 79 Pulse Source Monitor Intake Visit Reasons: LUMBAR SPINE Is patient in pain?: Yes Allergies amoxicillin Adverse Reaction (Severe, Verified 12/27/23 11:15) loose stools Medications ???Medication ???Instructions ???Recorded ???Confirmed ???Type multivitamin 1 tab PO DAILY 09/12/23 12/27/23 History sertraline 50 mg tablet 50 mg PO QDAY #30 tabs 12/04/23 12/27/23 Rx PFSH Medical History Congestion of nasal sinus Coughing H/O infectious mononucleosis Scoliosis Surgical History History of cholecystectomy Family History Grandfather Heart disease Unknown H/O blood clots Grandmother Diabetes Social History (Updated 12/04/23 @ 10:31 by Maida Rocha) household members: significant other housing: house 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 well-balanced diet: about half the time what type of physical activity do you participate in: walking, weight training and other seatbelt use: always do you feel safe at home: Yes HPI LUMBAR SPINE Details: This documentation accurately reflects the service provided and the decisions made by me, Dr. Hu Mack MD 12/27/23 1109. Part of today???s visit was documented by [ ], acting as scribe. LETY ALVES is a 18 year old F here today for lumbar spine. Patient notes that she saw pain management after her last appointment but it took her awhile to get in to them so she completed physical therapy in the mean time, which was helpful. By the time she saw them, physical therapy had been helpful so they didn't give her any treatment. She was given a home exercise program which she continues to do once a day. Her pain returned about 3-4 weeks ago and her pain returned with no known injury. She states that she stands up, bends over, picks up a dog and she will have a pinching pain for the entire rest of the day. Her pain comes and goes and she will go without pain for days. Patient has that sudden pain, she has pain into her right leg and she will have numbness of her toes for a few hours. No left sided pain. Patient is no longer taking her muscle relaxers due to it making her sleepy and it made her dependant to sleep at night. She tried Advil which helps her. She saw Dr. Tirado at pain management which recommended that she take muscle relaxers, no injections. Ortho Exam General General: Yes no acute distress Neurologic: Yes alert and Yes oriented x3 Spine SPINE TESTING CERVICAL THORACIC LUMBAR Musculoskeletal Strength 0=absent - 5=normal Details: Examination the back shows midline and right paraspinal tenderness. Neurologic evaluation of lower extremity shows 5 x 5 power normal shows normal sensations in all dermatomes. Passive straight leg raise negative. Coding Level of Care Code Off vis,est,level 4 Diagnoses Spondylolisthesis, lumbar region M43.16 Lumbar radiculopathy M54.16 Time Spent (min) 35 Assessment and Plan Assessment and Plan (1) Spondylolisthesis, lumbar region: Status: Acute (2) Lumbar radiculopathy: Status: Acute Plan Again reviewed her x-rays and MRI from August. 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 Lumbar curve measures 35 degrees. 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 MRI shows L4-5 disc degeneration with mild central disc bulge. Discussed options today which includes more physical therapy and injections with pain management. Has had physical therapy over the last few months and has shown good improvement. I would recommend continued exercises taught in physical therapy. She is established with Dr. Tirado at pain management who didn't recommend at that time any injections, however given her new pain, recommend that she reach back out to him to discuss options. She will follow up (more content not included)... Normal [facility] Absolute lymphocyte countOrd ered By: Yuko Jackson on 06-05-2023 Lymphocytes Auto (Unsp spec) [#/Vol] 1.63 10*3/uL 0.83-4.51 [facility] Automated lymphocyte count a s percentage of total leukocytesOrdered By: Yuko Jackson on 06-05-2023 Lymphocytes/100 WBC Auto (Unsp spec) 27.2 % 19-41 [facility] Basophil percentageOrdered B y: Yuko Jackson on 06-05-2023 Basophils/100 WBC (Bld) 0.5 % 0-1 [facility] Bilirubin [Mass/Vol] 0.40 mg/dL 0.20-1.00 [facility] Comment on above: For patients on eltr ombopag therapy, use of Dimension [place] TBIL is not recommended. Chloride [Moles/Vol] 108 mmol/L 98-107 [facility] Cholesterol [Mass/Vol] 134 mg/dL <200 [facility] Comment on above: <200 mg/dL Desirable 200-240 mg/dL Borderline >240 mg/dL High Risk Eosinophils/100 WBC (Bld) 3.5 % 0-5 [facility] Glucose [Mass/Vol] 93 mg/dL 74-106 [facility] Hemoglobin (Bld) [Mass/Vol] 13.6 g/dL 12.0-15.0 [facility] Monocytes/100 WBC (Bld) 8.3 % 0-10 [facility] Neutrophils (Bld) [#/Vol] 3.6 10*3/uL 2.0-7.7 [facility] Neutrophils/100 WBC (Bld) 60.2 % 47-70 [facility] Potassium [Moles/Vol] 4.4 mmol/L 3.5-5.1 [facility] Protein [Mass/Vol] 7.3 g/dL 6.4-8.2 [facility] Sodium [Moles/Vol] 137 mmol/L 136-145 [facility] Triglyceride [Mass/Vol] 137 mg/dL <199 [facility] Comment on above: The drugs N-Acetylcy steine and Metamizole may falsely depress this assay.Serum Triglycerides Reference Interval Normal <150 mg/dL Borderline high 150 - 199 mg/dL High 200 - 499 mg/dL Very High > or = 500 mg/dL WBC (Bld) [#/Vol] 6.0 10*3/uL 4.4-11.0 [facility] Determination of erythrocyte mean corpuscular volume (MCV)Ordered By: Yuko Jackson on 06-05-2023 MCV (RBC) [Entitic vol] 93.7 fL 81-99 [facility] Erythrocyte distribution wid th ratioOrdered By: Yuko Jackson on 06-05-2023 Erythrocyte distribution width (RBC) [Ratio] 11.9 % 11.6-14.6 [facility] Erythrocyte distribution wid th standard deviationOrdered By: Yuko Jackson on 06-05-2023 Erythrocyte distribution width (RBC) [Entitic vol] 40.7 fL 35.1-43.9 [facility] Hematocrit Auto (Bld) [Volum e fraction]Ordered By: Yuko Jackson on 06-05-2023 Hematocrit (Bld) [Volume fraction] 40.1 % 37-47 [facility] Immature granulocytes/100 WB C Auto (Bld)Ordered By: Yuko Jackson on 06-05-2023 Immature granulocytes/100 WBC (Bld) 0.300 % 0.0-0.9 [facility] Comment on above: IG% - Immature Granu locytes (promyelocytes, myelocytes and metamyelocytes) > 1% indicates that a LEFT SHIFT is Present. Iron measurement (mass/mass) Ordered By: Yuko Jackson on 06-05-2023 Iron (Unsp spec) [Mass/Mass] 94 ug/dL 50-170 [facility] Laboratory - Chemistry and C hemistry - challengeOrdered By: Yuko Jackson on 06-05-2023 Albumin/Globulin [Mass ratio] 1.1 {ratio} 0.9-2.4 [facility] ALP [Catalytic activity/Vol] 72 U/L 45-117 [facility] ALT [Catalytic activity/Vol] 31 U/L 13-56 [facility] Cholesterol in HDL [Mass/Vol] 36 mg/dL >40 [facility] Comment on above: The drugs N-Acetylcy steine and Metamizole may falsely depress this assay. Reference Range HDL <40 mg/dL Low HDL Cholesterol HDL >or= 60 mg/dL High HDL Cholesterol Cholesterol in LDL [Mass/Vol] 71 mg/dL 0-130 [facility] CO2 [Moles/Vol] 25.0 mmol/L 21.0-32.0 [facility] Ferritin [Mass/Vol] 41 ng/mL 8-252 [facility] Globulin (S) [Mass/Vol] 3.5 g/dL 2.2-4.2 [facility] Magnesium [Mass/Vol] 2.0 mg/dL 1.6-2.6 [facility] Urea nitrogen/Creatinine [Mass ratio] 11.9 mg/mg 10-20 [facility] Laboratory - Hematology and Cell countsOrdered By: Yuko Jackson on 06-05-2023 MCH (RBC) [Entitic mass] 31.8 pg 27.0-32.0 [facility] MCHC (RBC) [Mass/Vol] 33.9 g/dL 32-36 [facility] Nucleated RBC/100 WBC (Bld) [Ratio] 0 % 0-5 [facility] Platelet mean volume (Bld) [Entitic vol] 10.1 fL 6.2-12.0 [facility] Platelets (Bld) [#/Vol] 290 10*3/uL 150-450 [facility] No Panel InformationOrdered By: Yuko Jackson on 06-05-2023 Estimated GFR (MDRD) Amer 126 mL/min >60 [facility] Comment on above: GFR Calc Estimated GFR (MDRD) Non-Af Amer 104 mL/min >60 [facility] Comment on above: Non- GFR Calc Total Iron Binding Capacity 351 ug/dL 250-450 [facility] VLDL Cholesterol 27 mg/dL 5-40 [facility] RBC Auto (Bld) [#/Vol]Ordere d By: Yuko Jackson on 06-05-2023 RBC (Bld) [#/Vol] 4.28 10*6/uL 4.2-5.4 [facility] Serum or plasma calcium xenia urement (mass/volume)Ordered By: Yuko Jackson on 06-05-2023 Calcium [Mass/Vol] 8.8 mg/dL 8.5-10.1 [facility] Serum or plasma creatinine m easurement (mass/volume)Ordered By: Yuko Jackson on 06-05-2023 Creatinine [Mass/Vol] 0.76 mg/dL 0.55-1.02 [facility] Comment on above: The validity of the calculated GFR & GFRAA in patients over 70 years has not been determined. Clinical correlation is essential. Serum or plasma thyroid stim ulating hormone (TSH) measurement (units/volume)Ordered By: Yuko Jackson on 06-05-2023 TSH Qn 2.00 uIU/mL 0.358-3.74 [facility] Serum or plasma urea nitroge n measurement (mass/volume)Ordered By: Yuko Jackson on 06-05-2023 Urea nitrogen [Mass/Vol] 9 mg/dL 7-18 [facility] Thin prep Papanicolaou smear with manual screeningOrdered By: Yuko Jackson on 06-05-2023 Thin prep Papanicolaou smear with manual screening 3.8 g/dL 3.2-5.0 [facility] Thin prep Papanicolaou smear with manual screening 18 U/L 15-37 [facility] Thin prep Papanicolaou smear with manual screening 4 5-15 [facility] Thin prep Papanicolaou smear with manual screening 0.99 ng/dL 0.76-1.46 [facility] Laboratory - Chemistry and C hemistry - challengeon 04-26-2023 HCG ( test) Ql (U) Negative [facility] Bilirubin Ql (U) Negative [facility] Glucose Ql (U) Negative [facility] Ketones Ql (U) Negative [facility] Specific gravity (U) [Rel density] 1.025 [facility] Urobilinogen (U) [Mass/Vol] Negative [facility] Laboratory - Hematology and Cell countson 04-26-2023 Hemoglobin Ql (U) Negative [facility] - Specimen inform ationon 04-26-2023 Clarity (U) Clear [facility] Color (U) Yellow [facility] Laboratory - Urinalysison Nitrite Ql (U) Negative [facility] Protein Ql (U) Negative [facility] No Panel Informationon 04-25 Urine Leukocytes Negatve [facility] Urine Non-Hemolyzed Blood Negative [facility] Culture, urineOrdered By: Sunni Ramírez on 03-21-2023 Bacteria identified Cx Nom (U) Staphylococcus saprophyticus [facility] Bacteria identified Cx Nom (U) Staphylococcus saprophyticus [facility] Laboratory - Chemistry and C hemistry - challengeon 03-21-2023 Bilirubin Ql (U) Small (1+) [facility] Glucose Ql (U) Negative [facility] HCG ( test) Ql (U) Negative [facility] Ketones Ql (U) Negative [facility] Specific gravity (U) [Rel density] 1.020 [facility] Urobilinogen (U) [Mass/Vol] Negative [facility] Laboratory - Hematology and Cell countson 03-21-2023 Hemoglobin Ql (U) Negative [facility] - Microbiology an d Antimicrobial susceptibilityon 03-21-2023 SARS-CoV-2 (COVID-19) RNA RYAN+probe Ql (Unsp spec) Not detected [facility] Laboratory - Specimen inform ationon 03-21-2023 Clarity (U) Cloudy [facility] Color (U) YELLOW [facility] Laboratory - Urinalysison Nitrite Ql (U) Negative [facility] Protein Ql (U) Negative [facility] No Panel Informationon 03-21 Influenza Types A,B Rapid (Clinic) Negative [facility] Urine Leukocytes Negatve [facility] Urine Non-Hemolyzed Blood Negative [facility] Throat specimen bacteria harsha ntification by cultureOrdered By: Filipe Ramírez on 03-21-2023 Bacteria identified Cx Nom (Throat) streptococcus isolated. [facility] Bacteria identified Cx Nom (Throat) streptococcus isolated. [facility] No Panel Informationon 02-08 POC SARS CoV-2 Antigen Negative [facility] Bacteria Wnd Culton 11-28-19 23 Bacteria identified Cx Nom (Wound) ORGANISM ID: 1 Moderate Staphylococcus aureus ORGANISM ID: 2 Few Streptococcus agalactiae (group b streptococcus) Susceptibility testing not performed on beta hemolytic streptococci due to predictable susceptibility to penicillin and other beta lactams. For testing, call Microbiology within 72 hours. GRAM STAIN: Rare Gram positive cocci No Polymorphonuclear Leukocytes ORGANISM ID: 1 (STAPHYLOCOCCUS AUREUS) ANTIBIOTIC INTERPRETATION MIGUEL STATUS REFERENCE RANGE Oxacillin S 0.5 F Susceptible <=2 , Resistant >2 Oxacillin-susceptibl e staphylococci are susceptible to other penicilllinase-stabl e penicillins, beta-lactam/beta-lac tamase inhibitor combinations, anti-staphylococcal cephems, and carbapenems. Gentamicin S <=0.5 F Susceptible <=4 , Intermediate >4 , Resistant >8 Erythromycin R >=8 F Susceptible <=0.5 , Intermediate >.5 , Resistant >4 Clindamycin S <=0.12 F Susceptible <=0.5 , Intermediate >.5 , Resistant >2 Testing for inducible clindamycin resistance was performed. Trimeth sulfameth S <=10 F Susceptible <=40 , Resistant >40 Vancomycin S <=0.5 F Susceptible <=2 , Intermediate >2 , Resistant >8 Rifampin S <=0.5 F Susceptible <=1 , Intermediate >1 , Resistant >2 Rifampin should not be used alone for antimicrobial therapy. Tetracycline S <=1 F Susceptible <=4 , Intermediate >4 , Resistant >8 Doxycycline S <=0.5 F Susceptible <=4 , Intermediate >4 , Resistant >8 Abnormal [facility] Comment on above: Performed By: #### [id number] #### [facility] CLIA [id number] [address] [place] [address] [place] CNOVon 11-27-2022 CNOV Office Visit (WSTR) LETY ALVES ([id number]) 1 F Date Time Provider Department 11/27/22 6:30 PM THEO MILES [facility] During your visit today, we recorded the following information about you: Temperature Pulse Respiration Blood pressure 98.4 degrees 106/minute 16/minute 124/60 Weight 69.9 kg Theo Miles, COMMUNITY RELATIONS SPECIALIST.ASSOCIATE SPA DIRECTOR 11/27/2022 7:08 PM Signed Subjective HPI Nontoxic-appearing female presents urgent care chief plaint rash. Duration of symptoms 2 and half weeks. Associated symptoms painful rash. States slightly itchy at times and then becomes painful. States significant other developed rash prior to hers. Has been using antifungal cream and antibiotic cream this has not helped. Overall feels well. Denies any fever body aches chills productive cough chest pain shortness of breath pleuritic pain hemoptysis nausea vomiting abdominal pain change in bowel or bladder habits. Past medical history prescription medication use and allergies reviewed. Denies chance of . Has IUD. .Patient presents with: Rash: all over, lesions x 2.5 weeks. itching and painful PAST MEDICAL HISTORY Diagnosis Date NEGATIVE MEDICAL HISTORY PMH - PAST MEDICAL HISTORY OF 11/25/08 normal color vision Scoliosis 11/08/15 lumbar 37 degrees; thoracic 34 degrees (Ortho referral) PAST SURGICAL HISTORY Procedure Laterality Date NONE ALLERGIES Cheese MEDICATIONS levonorgestrel (MIRENA) 21 mcg/24 hours (8 yrs) 52 mg IUD 1 Each by INTRAUTERINE route one time only. SPRINTEC 0.25-35 mg-mcg per tablet Take 1 tablet by mouth once daily. (Patient not taking: Reported on 11/27/2022) LIDOCAINE VISCOUS 2 % solution Take 5-10 mL by mouth four times daily as needed. (Patient not taking: Reported on 11/27/2022) CHILDREN'S MULTI VITAMINS ORAL Take by mouth once daily. (Patient not taking: Reported on 06/25/2022) FAMILY HISTORY Problem Relation Age of Onset Hypertension Mother Heart Father Heart Paternal Grandfather Asthma Sister None Sister Social History Tobacco Use Smoking status: Never Smokeless tobacco: Never Vaping Use Vaping Use: current everyday user Substance Use Topics Alcohol use: No Drug use: No BP 124/60 Pulse 106 Temp 36.9 ?C (98.4 ?F) Resp 16 Wt 69.9 kg (154 lb) LMP 10/23/2016 (Approximate) SpO2 99% Hr 84 Review of Systems Constitutional: Negative for chills, fever and malaise/fatigue. HENT: Negative for congestion, ear discharge, ear pain, sinus pain and sore throat. Eyes: Negative for blurred vision, pain, discharge and redness. Respiratory: Negative for cough, hemoptysis, sputum production, shortness of breath, wheezing and stridor. Cardiovascular: Negative for chest pain. Gastrointestinal: Negative for abdominal pain, diarrhea, nausea and vomiting. Musculoskeletal: Negative for myalgias. Skin: Positive for itching and rash. Neurological: Negative for dizziness and headaches. Objective Physical Exam Constitutional: General: She is not in acute distress. Appearance: She is not toxic-appearing. HENT: Head: Normocephalic. Nose: Nose normal. Eyes: Pupils: Pupils are equal, round, and reactive to light. Cardiovascular: Rate and Rhythm: Normal rate. Pulmonary: Effort: Pulmonary effort is normal. No respiratory distress. Musculoskeletal: Cervical back: Normal range of motion. Skin: General: Skin is warm and dry. Comments: Scattered rash noted to highlighted areas. Erythematous base with some vesicles noted. Some crusting. No adenopathy noted. Spares mucosal membranes. Neurological: General: No focal deficit present. Mental Status: She is alert. ASSESSMENT/PLAN: 1. Bullous impetigo - ICD9: 684, ICD10: L01.03 - Topical treatment with mupirocin ointment (Bactroban) TID - Systemic treatment with Cephalaxin (Keflex) - Skin care and contagious disease precautions discussed - Follow up if symptoms persist or fail to resolve - ABSCESS AND WOUND CULTURE WITH GRAM STAIN Patient nontoxic-appearing. Suspicious of bullous impetigo. Low suspicion for fungal infection/viral infection. Treat with mupirocin Keflex. Follow-up if symptoms or not improving 2 to 3 days. Patient was educated on supportive therapies.Patient was instructed to immediately proceed to emergency room for any new, worsening, or symptoms lasting longer than anticipated. The patient's clinical presentation is otherwise unremarkable at this time. Based on exam and clinical finding, the patient is stable for discharge. Plan of care was discussed with patient. Patient verbalizes understanding and agrees to plan of care. This note was generated using [employer] software. It may contain errors in wording, punctuation, or spelling. Theo Miles APRN.CNP Allergies As of Date: 11/27/2022 Noted Allergy Reaction CHEESE 2015 4 - Hives Comments: Powder santhosh (more content not included)... Normal [facility] Throat specimen bacteria harsha ntification by cultureOrdered By: Mihir Contreras on 09-23-2022 Bacteria identified Cx Nom (Throat) [facility] CNOVon 06-25-2022 CNOV Office Visit (UCWSTR) LETY ALVES ([id number]) 1 F Date Time Provider Department 06/25/22 1:00 PM DARIA CUNHA [facility] During your visit today, we recorded the following information about you: Temperature Pulse Respiration Blood pressure 98.3 degrees 76/minute 16/minute 104/80 Weight 56.7 kg Daria Cunha APRN.CNP 06/25/2022 1:29 PM Signed Subjective HPI HPI Letydean Alves is a 16 year old female who presents today for CC of st, cough, fever. This started 1 day ago. Has tried otc medication for relief. Symptoms are worsened by nothign. Risk factors hx of strep and severe mono. Denies possibility of being . vapes. .Patient presents with: Sore Throat PAST MEDICAL HISTORY Diagnosis Date NEGATIVE MEDICAL HISTORY [facility] - PAST MEDICAL HISTORY OF 11/25/08 normal color vision Scoliosis 11/08/15 lumbar 37 degrees; thoracic 34 degrees (Ortho referral) PAST SURGICAL HISTORY Procedure Laterality Date NONE ALLERGIES Cheese MEDICATIONS SPRINTEC 0.25-35 mg-mcg per tablet Take 1 tablet by mouth once daily. CHILDREN'S MULTI VITAMINS ORAL Take by mouth once daily. (Patient not taking: Reported on 06/25/2022) FAMILY HISTORY Problem Relation Age of Onset Hypertension Mother Heart Father Heart Paternal Grandfather Asthma Sister None Sister Social History Tobacco Use Smoking status: Never Smokeless tobacco: Never Vaping Use Vaping Use: current everyday user Substance Use Topics Alcohol use: No Drug use: No Review of Systems Constitutional: Positive for fever. HENT: Positive for congestion and sore throat. Negative for ear pain and nosebleeds. Respiratory: Positive for cough. Negative for shortness of breath and wheezing. Musculoskeletal: Negative for neck pain. Objective Blood pressure 104/80, pulse 76, temperature 36.8 ?C (98.3 ?F), resp. rate 16, weight 56.7 kg (125 lb), last menstrual period 10/23/2016, SpO2 98 %. Physical Exam Constitutional: General: She is not in acute distress. Appearance: She is not toxic-appearing or diaphoretic. HENT: Head: Normocephalic and atraumatic. Right Ear: Hearing, tympanic membrane, ear canal and external ear normal. Left Ear: Hearing, tympanic membrane, ear canal and external ear normal. Nose: Nose normal. Mouth/Throat: Pharynx: Uvula midline. Oropharyngeal exudate and posterior oropharyngeal erythema present. No pharyngeal swelling or uvula swelling. Tonsils: Tonsillar exudate present. 2+ on the right. 2+ on the left. Eyes: General: Lids are normal. No scleral icterus. Right eye: No discharge. Left eye: No discharge. Conjunctiva/sclera: Conjunctivae normal. Pupils: Pupils are equal, round, and reactive to light. Neck: Trachea: Trachea normal. Cardiovascular: Rate and Rhythm: Normal rate and regular rhythm. Heart sounds: Normal heart sounds. Pulmonary: Effort: Pulmonary effort is normal. Breath sounds: Normal breath sounds. Abdominal: General: Abdomen is flat. Palpations: Abdomen is soft. There is no hepatomegaly or splenomegaly. Tenderness: There is no abdominal tenderness. Musculoskeletal: Cervical back: Normal range of motion and neck supple. Lymphadenopathy: Cervical: No cervical adenopathy. Right cervical: No superficial cervical adenopathy. Left cervical: No superficial cervical adenopathy. Skin: Findings: No rash. Neurological: Mental Status: She is alert and oriented to person, place, and time. ASSESSMENT/PLAN: 1. Sore throat - ICD9: 462, ICD10: J02.9 - suspect viral - Alere Strep Test neg, no culture pending - Discussed supportive care treatment with fluids, rest and analgesia. - The patient should follow up in 3-5 days if symptoms persist or worsen - Call back if drooling, increased temperature, symptoms of dehydration and/or still sick in one week - STREP A MOLECULAR (POC) - PREDNISONE 10 MG TABLET - LIDOCAINE HCL 2 % MUCOSAL SOLUTION Daria Cunha APRN.ARELY Referring Provider: SELF [200] Allergies As of Date: 06/25/2022 Noted Allergy Reaction CHEESE 2015 4 - Hives Comments: Powder cheeses Date Reviewed: 06/25/2022 Reviewed by: Daria Cunha APRN.ASSOCIATE SPA DIRECTOR - Fully Assessed Reason for Visit: Sore Throat [200] Primary Visit Diagnosis:Sore throat [J02.9] Order(s):STREP A MOLECULAR (POC) [2490945] Order #: [id number]. #:[id number] predniSONE (DELTASONE) 10 mg tabletTake 4 tabs daily for 3 days, then 2 tabs daily for 3 days, then 1 tab daily for 3 days with food.Disp: 21 tabletRfl: 0 LIDOCAINE VISCOUS 2 % solutionTake 5-10 mL by mouth four times daily as needed.Disp: 10 mLRfl: 0 Prescriptions as of 06/25/2022 - SPRINTEC 0.25-35 mg-mcg per tablet Take 1 tablet by mouth once daily. - predniSONE (DELTASONE) 10 mg tablet Take 4 tabs daily for 3 days, then 2 tabs daily for 3 days, then 1 tab daily for 3 days with fo (more content not included)... Normal [facility] STREP A MOLECULAR (POC)on Procedural Control Valid [facility] Strep A (POCT) Negative Negative [facility] Basophil percentageOrdered B y: Laura Espana on 03-01-2022 C. trachomatis DNA RYAN+probe Ql (Unsp spec) Negative Negative [facility] Neisseria gonorrhoeae detect ion by PCROrdered By: Laura Espana on 03-01-2022 N. gonorrhoeae DNA RYAN+probe Ql (Cervical mucus) Negative Negative [facility] Clostridium difficile detect ion by polymerase chain reactionOrdered By: Filipe Ramírez on 01-10-2022 C. difficile DNA RYAN+probe Ql (Unsp spec) [facility] EP PanelOrdered By: Filipe liu on 01-10-2022 Gastrointestinal pathogens panel RYAN+probe (Stl) [facility] Stool Clostridium difficile detectionOrdered By: Filipe Ramírez on 01-10-2022 C. difficile Ql (Stl) [facility] - Microbiology an d Antimicrobial susceptibilityOrdered By: Filipe Ramírez on 01-03-2022 Respiratory pathogens DNA and RNA 12b panel RYAN+probe (Unsp spec) [facility] No Panel Informationon 01-03 Influenza Types A,B Rapid (Clinic) Negative [facility] POC SARS CoV-2 Antigen Negative [facility] Progress Noteon 09-13-2021 Commissioning Agent Authentication Interface Message Text Patient ID: Lety Alves is a 15 y.o. female. Her chief complaint(s) include: Pharyngitis (Started 4 days ago, some vomiting, wants checked for strep) Assessment 1. Sore throat Plan Lety was seen today for pharyngitis. Diagnoses and all orders for this visit: Sore throat - POCT ID NOW Rapid Strep A NAAT Follow up as needed. Subjective HPI Comments: 5 days ago started with sore throat. Was on vacation. Took a few doses of left over amoxicillin and has since felt better. She had tactile temp, vomiting 1-2 times, headaches. Itchy rash on her stomach and thighs she thought was from sand mites. She gets strep quite often. Primary Care Review of Systems Objective Vital Signs 09/13/21 1534 Temp: 36.9 C (98.4 F) TempSrc: Temporal Weight: 60.7 kg There is no height or weight on file to calculate BMI. Physical Exam Constitutional: She appears well. She is active. No distress. HENT: Head: Atraumatic. Ears: Right Ear: Tympanic membrane normal. Left Ear: Tympanic membrane normal. Mouth/Throat: Mucous membranes are moist. No pharynx erythema. Tonsils are 2+ on the right. Tonsils are 2+ on the left. No tonsillar exudate. Eyes: Conjunctivae are normal. Right conjunctiva is not injected. Left conjunctiva is not injected. Neck: Neck supple. Cardiovascular: Normal rate and regular rhythm. Heart murmur not heard. Pulmonary/Chest: Breath sounds normal. There is normal air entry. Musculoskeletal: Cervical back: Neck supple. Lymphadenopathy: No right anterior and posterior cervical adenopathy present. No left anterior and posterior cervical adenopathy present. Neurological: She is alert. Skin: Capillary refill takes less than 3 seconds. Skin is warm. Findings: No rash. Last Result POCT ID NOW Rapid Strep A NAAT Collection Time: 09/13/21 3:50 PM Result Value Ref Range STREP A POC RESULT Negative Negative PROCEDURAL CONTROL POCT Control - Valid Lot Number [id number] Normal [facility] Tryptaseon 04-05-2021 Tryptase 2.8 ng/mL Normal <11.[address] [facility] Comment on above: Order Comment: Is th is order Clinic Collect?->Yes Is this specimen being sent to an external lab?->No Release to patient->Automatic 34445&Blood^\S\^Venous&Venous Is this order Clinic Collect?->Yes Is this specimen being sent to an external lab?->No [id number]&Blood^\S\^Venous&Venous Result Comment: Test Performed by: [facility] [address] Cloud Automation Tester: Ellis Velasco M.D. Ph.D.; CLIA# [id number] Performed By: #### T RYPT #### [place] [address] NESS Ab w/Reflexon 04-04-2021 NESS Ab Screen Negative Normal [facility] Comment on above: Order Comment: Is th is order Clinic Collect?->Yes Is this specimen being sent to an external lab?->No Release to patient->Automatic 64724&Blood^\S\^Venous&Venous Is this order Clinic Collect?->Yes Is this specimen being sent to an external lab?->No 41750&Blood^\S\^Venous&Venous Result Comment: REFE RENCE RANGE: <1:40 Negative > or = 1:40 Positive If NESS Ab Screen is positive, see NESS Titer and Pattern for titer results. - TEST METHOD: Indirect fluorescent antibody technique for qualitative and semi-quantitative detection of circulating antinuclear antibodies in human sera using HEp-2000 cells. Performed By: #### A NAPR #### [place] [address] Comp Metabolic Panelon 04-01 Albumin [Mass/Vol] 4.6 g/dL High 3.2-4.[address] [facility] Comment on above: Order Comment: Is th is order Clinic Collect?->Yes Is this specimen being sent to an external lab?->No Release to patient->Automatic 34497&Blood^\S\^Venous&Venous Is this order Clinic Collect?->Yes Is this specimen being sent to an external lab?->No 56974&Blood^\S\^Venous&Venous Performed By: #### C MP #### [place] [address] ALP [Catalytic activity/Vol] 41 U/L Low 43-[address] [facility] Comment on above: Order Comment: Is th is order Clinic Collect?->Yes Is this specimen being sent to an external lab?->No Release to patient->Automatic 50477&Blood^\S\^Venous&Venous Is this order Clinic Collect?->Yes Is this specimen being sent to an external lab?->No 43130&Blood^\S\^Venous&Venous Performed By: #### C MP #### [place] [address] ALT [Catalytic activity/Vol] 10 U/L Normal 0-[address] [facility] Comment on above: Order Comment: Is th is order Clinic Collect?->Yes Is this specimen being sent to an external lab?->No Release to patient->Automatic 29773&Blood^\S\^Venous&Venous Is this order Clinic Collect?->Yes Is this specimen being sent to an external lab?->No 20618&Blood^\S\^Venous&Venous Performed By: #### C MP #### [place] [address] AST [Catalytic activity/Vol] 14 U/L Normal 0-[address] [facility] Comment on above: Order Comment: Is th is order Clinic Collect?->Yes Is this specimen being sent to an external lab?->No Release to patient->Automatic 08473&Blood^\S\^Venous&Venous Is this order Clinic Collect?->Yes Is this specimen being sent to an external lab?->No 39463&Blood^\S\^Venous&Venous Performed By: #### C MP #### [place] [address] Bili,Total 0.3 mg/dL Normal 0.0-1.[address] [facility] Comment on above: Order Comment: Is th is order Clinic Collect?->Yes Is this specimen being sent to an external lab?->No Release to patient->Automatic 81685&Blood^\S\^Venous&Venous Is this order Clinic Collect?->Yes Is this specimen being sent to an external lab?->No 07061&Blood^\S\^Venous&Venous Result Comment: Emilio ature : 1 Day 1.0-6.0 mg/dL 2 Days 6.0-8.0 mg/dL 3-5 Days 10.0-15.0 mg/dL Performed By: #### C MP #### [place] [address] Calcium [Mass/Vol] 9.6 mg/dL Normal 7.6-11.[address] [facility] Comment on above: Order Comment: Is th is order Clinic Collect?->Yes Is this specimen being sent to an external lab?->No Release to patient->Automatic 99268&Blood^\S\^Venous&Venous Is this order Clinic Collect?->Yes Is this specimen being sent to an external lab?->No 44786&Blood^\S\^Venous&Venous Performed By: #### C MP #### [place] [id number] CO2 [Moles/Vol] 24.9 mmol/L Normal 22.0-29.[address] [facility] Comment on above: Order Comment: Is th is order Clinic Collect?->Yes Is this specimen being sent to an external lab?->No Release to patient->Automatic 93096&Blood^\S\^Venous&Venous Is this order Clinic Collect?->Yes Is this specimen being sent to an external lab?->No 30748&Blood^\S\^Venous&Venous Performed By: #### C MP #### [place] [address] Creatinine [Mass/Vol] 0.68 mg/dL Normal 0.50-1.00 [facility] Comment on above: Order Comment: Is th is order Clinic Collect?->Yes Is this specimen being sent to an external lab?->No Release to patient->Automatic 32470&Blood^\S\^Venous&Venous Is this order Clinic Collect?->Yes Is this specimen being sent to an external lab?->No 68439&Blood^\S\^Venous&Venous Performed By: #### C MP #### [place] [address] Glucose [Mass/Vol] 93 mg/dL Normal 70-[address] [facility] Comment on above: Order Comment: Is th is order Clinic Collect?->Yes Is this specimen being sent to an external lab?->No Release to patient->Automatic 82019&Blood^\S\^Venous&Venous Is this order Clinic Collect?->Yes Is this specimen being sent to an external lab?->[place] 20165&Blood^\S\^Venous&Venous Result Comment: Crit silvana for Diagnosis of Diabetes: Fasting Specimen (no caloric intake for at least 8 hours): <100 mg/dL Normal 100-125 mg/dL Increased risk for Diabetes >125 mg/dL Diagnostic for Diabetes Random Glucose (any time of day without regard to last meal): > or = 200 mg/dL plus Classic Symptoms of Diabetes Performed By: #### C MP #### [place] [address] Protein [Mass/Vol] 7.2 g/dL Normal 6.0-8.[address] [facility] Comment on above: Order Comment: Is th is order Clinic Collect?->Yes Is this specimen being sent to an external lab?->No Release to patient->Automatic 11392&Blood^\S\^Venous&Venous Is this order Clinic Collect?->Yes Is this specimen being sent to an external lab?->No 03378&Blood^\S\^Venous&Venous Performed By: #### C MP #### [place] [id number] Urea nitrogen [Mass/Vol] 10 mg/dL Normal 4-[address] [facility] Comment on above: Order Comment: Is th is order Clinic Collect?->Yes Is this specimen being sent to an external lab?->No Release to patient->Automatic 47124&Blood^\S\^Venous&Venous Is this order Clinic Collect?->Yes Is this specimen being sent to an external lab?->No 61256&Blood^\S\^Venous&Venous Performed By: #### C MP #### [place] [address] Chloride [Moles/Vol] 103 mmol/L Normal 96-108 [facility] Comment on above: Order Comment: Is th is order Clinic Collect?->Yes Is this specimen being sent to an external lab?->No Release to patient->Automatic 93428&Blood^\S\^Venous&Venous Is this order Clinic Collect?->Yes Is this specimen being sent to an external lab?->No 88130&Blood^\S\^Venous&Venous Performed By: #### C MP #### [address] [id number] Potassium [Moles/Vol] 5.1 mmol/L Normal 3.3-5.1 [facility] Comment on above: Order Comment: Is th is order Clinic Collect?->Yes Is this specimen being sent to an external lab?->No Release to patient->Automatic 76150&Blood^\S\^Venous&Venous Is this order Clinic Collect?->Yes Is this specimen being sent to an external lab?->No 54143&Blood^\S\^Venous&Venous Performed By: #### C MP #### [place] [address] Sodium [Moles/Vol] 139 mmol/L Normal 133-[address] [facility] Comment on above: Order Comment: Is th is order Clinic Collect?->Yes Is this specimen being sent to an external lab?->No Release to patient->Automatic 66827&Blood^\S\^Venous&Venous Is this order Clinic Collect?->Yes Is this specimen being sent to an external lab?->No 82351&Blood^\S\^Venous&Venous Performed By: #### C MP #### [place] [address] Complete Blood Count 04-01 Differential Complete Automated Normal [facility] Comment on above: Order Comment: Is th is order Clinic Collect?->Yes Is this specimen being sent to an external lab?->No Release to patient->Automatic 32629&Blood^\S\^Venous&Venous Is this order Clinic Collect?->Yes Is this specimen being sent to an external lab?->No 11077&Blood^\S\^Venous&Venous Performed By: #### C BC #### [place] [address] Basophils/100 WBC (Bld) 0.40 % Normal 0.00-1.00 [facility] Comment on above: Order Comment: Is th is order Clinic Collect?->Yes Is this specimen being sent to an external lab?->No Release to patient->Automatic 95208&Blood^\S\^Venous&Venous Is this order Clinic Collect?->Yes Is this specimen being sent to an external lab?->No 56576&Blood^\S\^Venous&Venous Performed By: #### C BC #### [place] [address] Eosinophils/100 WBC (Bld) 2.00 % Normal 0.00-3.[address] [facility] Comment on above: Order Comment: Is th is order Clinic Collect?->Yes Is this specimen being sent to an external lab?->No Release to patient->Automatic 72647&Blood^\S\^Venous&Venous Is this order Clinic Collect?->Yes Is this specimen being sent to an external lab?->No 43636&Blood^\S\^Venous&Venous Performed By: #### C BC #### [place] [address] Erythrocyte distribution width (RBC) [Ratio] 11.5 % Normal 0.0-14.[address] [facility] Comment on above: Order Comment: Is th is order Clinic Collect?->Yes Is this specimen being sent to an external lab?->No Release to patient->Automatic 85179&Blood^\S\^Venous&Venous Is this order Clinic Collect?->Yes Is this specimen being sent to an external lab?->No 95733&Blood^\S\^Venous&Venous Performed By: #### C BC #### [place] [address] Hematocrit (Bld) [Volume fraction] 39.5 % Normal 37.0-46.[address] [facility] Comment on above: Order Comment: Is th is order Clinic Collect?->Yes Is this specimen being sent to an external lab?->No Release to patient->Automatic 08745&Blood^\S\^Venous&Venous Is this order Clinic Collect?->Yes Is this specimen being sent to an external lab?->No 75638&Blood^\S\^Venous&Venous Performed By: #### C BC #### [place] [address] Hemoglobin (Bld) [Mass/Vol] 13.7 g/dL Normal 12.0-15.[address] [facility] Comment on above: Order Comment: Is th is order Clinic Collect?->Yes Is this specimen being sent to an external lab?->No Release to patient->Automatic 84595&Blood^\S\^Venous&Venous Is this order Clinic Collect?->Yes Is this specimen being sent to an external lab?->No 85699&Blood^\S\^Venous&Venous Performed By: #### C BC #### [address] [address] Immature granulocytes/100 WBC (Bld) 0.20 % Normal [facility] Comment on above: Order Comment: Is th is order Clinic Collect?->Yes Is this specimen being sent to an external lab?->No Release to patient->Automatic 33775&Blood^\S\^Venous&Venous Is this order Clinic Collect?->Yes Is this specimen being sent to an external lab?->No 76403&Blood^\S\^Venous&Venous Result Comment: Gaviota ture Granulocyte Percent includes promyelocytes, myelocytes, and metamyelocytes. IG% > 1.0 indicates a left shift is present. With automated differentials, bands are included in the neutrophil count and not in the Immature Granulocyte Percent. Performed By: #### C BC #### [address] [address] Lymphocytes/100 WBC (Bld) 33.3 % Normal 25.0-45.[address] [facility] Comment on above: Order Comment: Is th is order Clinic Collect?->Yes Is this specimen being sent to an external lab?->No Release to patient->Automatic 91763&Blood^\S\^Venous&Venous Is this order Clinic Collect?->Yes Is this specimen being sent to an external lab?->No 12938&Blood^\S\^Venous&Venous Performed By: #### C BC #### [address] [address] MCH (RBC) [Entitic mass] 31.5 pg Normal 25.0-35.[address] [facility] Comment on above: Order Comment: Is th is order Clinic Collect?->Yes Is this specimen being sent to an external lab?->No Release to patient->Automatic 03929&Blood^\S\^Venous&Venous Is this order Clinic Collect?->Yes Is this specimen being sent to an external lab?->No 85858&Blood^\S\^Venous&Venous Performed By: #### C BC #### [place] [address] MCHC 34.7 % Normal 31.0-37.[address] [facility] Comment on above: Order Comment: Is th is order Clinic Collect?->Yes Is this specimen being sent to an external lab?->No Release to patient->Automatic 38705&Blood^\S\^Venous&Venous Is this order Clinic Collect?->Yes Is this specimen being sent to an external lab?->No 45421&Blood^\S\^Venous&Venous Performed By: #### C BC #### [place] [address] MCV (RBC) [Entitic vol] 90.8 fL Normal 78.0-96.0 [facility] Comment on above: Order Comment: Is th is order Clinic Collect?->Yes Is this specimen being sent to an external lab?->No Release to patient->Automatic 13780&Blood^\S\^Venous&Venous Is this order Clinic Collect?->Yes Is this specimen being sent to an external lab?->No 01779&Blood^\S\^Venous&Venous Performed By: #### C BC #### [place] [address] Monocytes/100 WBC (Bld) 5.80 % Normal 3.00-6.00 A [facility] Comment on above: Order Comment: Is th is order Clinic Collect?->Yes Is this specimen being sent to an external lab?->No Release to patient->Automatic 68564&Blood^\S\^Venous&Venous Is this order Clinic Collect?->Yes Is this specimen being sent to an external lab?->No 90188&Blood^\S\^Venous&Venous Performed By: #### C BC #### [place] [address] Neutrophils (Bld) [#/Vol] 3.2 10*3/uL Normal 1.8-7.[address] [facility] Comment on above: Order Comment: Is th is order Clinic Collect?->Yes Is this specimen being sent to an external lab?->No Release to patient->Automatic 81170&Blood^\S\^Venous&Venous Is this order Clinic Collect?->Yes Is this specimen being sent to an external lab?->No 79918&Blood^\S\^Venous&Venous Performed By: #### C BC #### [place] [address] Neutrophils/100 WBC (Bld) 58.3 % Normal 34.0-64.[address] [facility] Comment on above: Order Comment: Is th is order Clinic Collect?->Yes Is this specimen being sent to an external lab?->No Release to patient->Automatic 13687&Blood^\S\^Venous&Venous Is this order Clinic Collect?->Yes Is this specimen being sent to an external lab?->No 47221&Blood^\S\^Venous&Venous Performed By: #### C BC #### [place] [address] Nucleated RBC/100 WBC (Bld) [Ratio] 0.0 % Normal -1.0-0.[address] [facility] Comment on above: Order Comment: Is th is order Clinic Collect?->Yes Is this specimen being sent to an external lab?->No Release to patient->Automatic 00653&Blood^\S\^Venous&Venous Is this order Clinic Collect?->Yes Is this specimen being sent to an external lab?->No 87015&Blood^\S\^Venous&Venous Performed By: #### C BC #### [place] [address] Platelet mean volume (Bld) [Entitic vol] 9.[address] [facility] Comment on above: Order Comment: Is th is order Clinic Collect?->Yes Is this specimen being sent to an external lab?->No Release to patient->Automatic [id number]&Blood^\S\^Venous&Venous Is this order Clinic Collect?->Yes Is this specimen being sent to an external lab?->No [id number]&Blood^\S\^Venous&Venous Result Comment: MPV is platelet range and age dependent Performed By: #### C BC #### [address] [address] Platelets (Bld) [#/Vol] 252 10*3/uL Normal 150-[address] [facility] Comment on above: Order Comment: Is th is order Clinic Collect?->Yes Is this specimen being sent to an external lab?->No Release to patient->Automatic [id number]&Blood^\S\^Venous&Venous Is this order Clinic Collect?->Yes Is this specimen being sent to an external lab?->No [id number]&Blood^\S\^Venous&Venous Performed By: #### C BC #### [place] [address] RBC 4.35 10E12/L Normal 4.10-4.[address] [facility] Comment on above: Order Comment: Is th is order Clinic Collect?->Yes Is this specimen being sent to an external lab?->No Release to patient->Automatic [id number]&Blood^\S\^Venous&Venous Is this order Clinic Collect?->Yes Is this specimen being sent to an external lab?->No [id number]&Blood^\S\^Venous&Venous Performed By: #### C BC #### [address] [address] WBC (Bld) [#/Vol] 5.5 10*3/uL Normal 4.5-13.[address] [facility] Comment on above: Order Comment: Is th is order Clinic Collect?->Yes Is this specimen being sent to an external lab?->No Release to patient->Automatic [id number]&Blood^\S\^Venous&Venous Is this order Clinic Collect?->Yes Is this specimen being sent to an external lab?->No [id number]&Blood^\S\^Venous&Venous Performed By: #### C BC #### [address] [place] [address] TSHon 04-01-2021 TSH 1.530 uIU/mL Normal 0.500-4.[address] [facility] Comment on above: Order Comment: Is th is order Clinic Collect?->Yes Is this specimen being sent to an external lab?->No Release to patient->Automatic [id number]&Blood^\S\^Venous&Venous Is this order Clinic Collect?->Yes Is this specimen being sent to an external lab?->No [id number]&Blood^\S\^Venous&Venous Performed By: #### T #### [address] [address] Progress Noteon 03-31-2021 Commissioning Agent Authentication Interface Message Text Patient ID: Lety Alves is a 15 y.o. female. Her chief complaint(s) include: Diarrhea (History of IBS and CDIFF, constant diarrhea for the past 2 1/2 weeks. OTC anti-diarrhea medications aren't helping. Nausea and cramping with the diarrhea. ) Assessment 1. Diarrhea, unspecified type Plan Lety was seen today for diarrhea. Diagnoses and all orders for this visit: Diarrhea, unspecified type - Stool Enteric culture; Future - Occult Blood, Qual; Future - Stool C. Diff; Future - Fecal Lactoferrin; Future - Giardia and Cryptosporidium Screen; Future - cyproheptadine (PERIACTIN) 4 MG tablet; Take 1 Tablet (4 mg) by mouth every 12 hours as needed for Allergies Patient with diarrhea. Will check stools and start patient on periactin to see if it will help with the diarrhea/abdominal cramping. If not seeing improvements, will have patient follow up with GI for further evaluation. Return if symptoms worsen or fail to improve. Subjective She is unaccompanied (mother on the phone). Diarrhea VOMITING (No vomiting). The course is unchanging (started about 2 to 2 1/2 weeks ago). The patient's appetite is normal. Her food intake is decreased. Her fluid intake is adequate (at least 4 to 5 glasses/day). The patient's hydration status shows normal amount of tears, normal level of activity, moist mucous membranes and normal urine output. In the last 24 hours the patient has voided 7 times (or more). The last time she voided was 1 hour ago. The patient's associated symptoms have included: abdominal pain (patient gets stabbing prior to bowel movement. Eating triggers it.), nausea and diarrhea. The patient has no fever, no fussiness, no congestion, no rhinorrhea, no sore throat, no cough, no vomiting or no dysuria. The patient has been exposed to no sick contacts. The contributing factors are anxiety (had antibiotics about 1 or 2 ago). Additional Parental Concerns: Have tried anti diarrhea medication and hasn't helped. Patient has had episodes of diarrhea and then constipation. She tends to fluctuate based on hormones. No family history of crohn's or ulcerative colitis. No blood in stool. Review of Systems Gastrointestinal: Positive for diarrhea. Objective Vital Signs 03/31/21 1415 Temp: 36.7 C (98.1 F) TempSrc: Temporal Weight: 59 kg There is no height or weight on file to calculate BMI. Physical Exam Constitutional: She appears well. She is active. No distress. HENT: Head: Atraumatic. Ears: Right Ear: Tympanic membrane normal. Left Ear: Tympanic membrane normal. Nose: No nasal discharge. Mouth/Throat: Mucous membranes are moist. No pharynx erythema. Eyes: Conjunctivae are normal. Cardiovascular: Normal rate and regular rhythm. Heart murmur not heard. Pulmonary/Chest: Breath sounds normal. There is normal air entry. Abdominal: Soft. Bowel sounds are normal. There is abdominal tenderness (mild abdominal discomfort with palpation). Neurological: She is alert. Vitals reviewed: Temperature 36.7 C (98.1 F), temperature source Temporal, weight [address] [facility] Progress Noteon 02-15-2021 Commissioning Agent Authentication Interface Message Text Patient ID: Lety Alves is a 15 y.o. female. Her chief complaint(s) include: Urticaria (Reaction to corn starch (hives, unable to breathe), every time PT eats since initial reaction she breaks out in hives and SOB. PT takes benadryl after reactions and it helps. Referral to senior sql server developer.) Assessment 1. Hives Plan Lety was seen today for urticaria. Diagnoses and all orders for this visit: Hives - AMB Referral To Allergy/Immunology; Future - cetirizine (ZYRTEC) 10 MG tablet; Take 1 Tablet (10 mg) by mouth daily Instructed patient to take zyrtec on daily basis for now. To use benadryl as needed for breakthrough symptoms. To monitor closely for any difficulties breathing. Will have patient follow up with allergy/immunology for further testing. Discussed keeping a diary of foods and symptoms in the meantime. Will need to stop the benadryl/zyrtec for approximately 48 hours prior to allergy/immunology appointment. Return if symptoms worsen or fail to improve. Subjective She is unaccompanied. Urticaria The onset has been acute. The duration has been 1 week and 1 day. The pattern is persistent. The course is unchanging. The rash is located on the face, neck, chest and abdomen. The rash is described as red and itchy (swollen (big patch and not individual)). Onset followed food ingestion. Symptoms are relieved by antihistamines. The patient's associated symptoms include: difficulty breathing (initially feels as though having problems breathing/lower lips will tingle). The patient has no fever, no fussiness, no difficulty sleeping (nothing out of the ordinary), no rhinorrhea, no sore throat, no cough, no ear pain, no vomiting and no diarrhea. The patient has been exposed to no sick contacts. The patient's past medical history is positive for eczema, food allergy and allergic rhinitis (some). The patient's past medical history is negative for asthma. Primary Care Review of Systems Objective Vital Signs 02/15/21 1554 Temp: 37.2 C (99 F) TempSrc: Temporal Weight: 57.1 kg There is no height or weight on file to calculate BMI. Physical Exam Constitutional: She appears well. She is active. No distress. HENT: Head: Atraumatic. Ears: Right Ear: Tympanic membrane normal. Left Ear: Tympanic membrane normal. Mouth/Throat: Mucous membranes are moist. Eyes: Conjunctivae are normal. Cardiovascular: Normal rate and regular rhythm. Heart murmur not heard. Pulmonary/Chest: Breath sounds normal. There is normal air entry. Neurological: She is alert. Skin: No urticaria at this time. Vitals reviewed: Temperature 37.2 C (99 F), temperature source Temporal, weight 57.1 kg. Normal [facility] Progress Noteon 12-09-2020 Commissioning Agent Authentication Interface Message Text Patient ID: Lety Alves is a 15 y.o. female. Her chief complaint(s) include: 15 YEAR WELL CHILD (wart removed on right foot PT states it's really bothering her ) Assessment 1. Encounter for routine child health examination without abnormal findings 2. Exercise counseling 3. Encounter for dietary counseling and surveillance 4. Need for vaccination Plan Lety was seen today for 15 year well child. Diagnoses and all orders for this visit: Encounter for routine child health examination without abnormal findings - PHQ9 Assessment With Score - Health Risk Assessment - CRAFFT Exercise counseling Encounter for dietary counseling and surveillance Need for vaccination - Meningococcal ACWY (MENACTRA) - Meningococcal B (BEXSERO) - Influenza Vaccine 0.5 mL >= 6 mo Quadrivalent (PF) Declined covid 19 vaccine for now. Return in about 1 year (around 12/09/2021) for well check. Subjective She is accompanied by her mother. Independent history obtained from mother (and patient). 15 YEAR WELL CHILD Complications after delivery: parental limits and consequences for unacceptable behavior Home: Lety has an adult to turn to for help, is permitted and able to make independent decisions and pays bills (gas). Lety does not eat meals with family (patient likes to eat later after visiting with friends) and has no home risk identified. Education: Lety is in 11th grade and is doing well, is getting along with peers, is meeting expectations and earns A's & B's. (Doing virtual schooling, could do better with the math). Eating: Lety eats regular meals including fruits and vegetables, limits fast food (could do better), drinks non-sweetened liquids and has a calcium source. Lety does not eat breakfast. Activities & Sports: Lety has a job (in between jobs right now), performs at least 1 hour of physical activity daily and has drivers license. Lety engages in screen time more than 2 hours daily, does not play team sports and does not participate in music programs. Drugs: Lety does not use tobacco, does not use drugs, does not use alcohol and does not vape. Safety: Lety has a violence free home, has peer relationships free from violence, uses helmet and uses seat belt. Lety does not use phone/text while driving. Sex: The patient has never had a sexual partner. The patient is interested in males. The patient has never had sex. The patient's sexual orientation is heterosexual. The patient's gender identity is cisgender. Suicidality: Lety has ways to cope with stress, displays self-confidence, has problems with sleep, has anxiety, has mood swings and is engaged in counseling. Lety has no depression, has no suicidal ideation and has no homicidal ideation. PHQ-9 Score: 8 Menstruation (Menarche: age 8) Menstruation: regular periods (due to being on control, cramping still an issue but just made a change in control to see if that will help) Output Urine and Stool Pattern: Urine and Stool Pattern: no Normal stool pattern, constipation, no normal urine pattern (urinary frequency: under investigation/has appointment with Dr. Peoples), no nocturnal enuresis. Stool Consistency: hard/firm Sleep Sleeping Difficulty: no difficulty sleeping Teen Anticipatory Guidance The following anticipatory guidance was reviewed during the visit: Nutrition: limit junk food/fast food and soft drinks. Safety: home safety and use safety helmet/gear with activities. Social: avoid or limit screen time and parental limits and consequences for unacceptable behavior. Health: age appropriate dental care, age appropriate sleep habits, elevated noise and hearing, avoid situations where drugs and alcohol are present, how to resist peer pressure to smoke, drink, use drugs, contraception/practi ce safe sex/ use condoms, practice abstinence- the safest way to prevent and STDs, talk with trusted adult if feeling sad or nervous, learn to manage time and activities and be responsible for attendance/ homework/ course selection. Screenings Previous Vaccine Reactions: No. Life events information was reviewed-no referral needed (social determinant questionnaire completed: no concerns at this time) Tuberculosis Concerns: Negative Tuberculosis Screen Concerns: no exposure to Tb or person with positive ppd Hearing Vision Concerns: Patient wears glasses or contact lenses. The caregiver has no concerns about the patient's hearing. The caregiver has no concerns about the patient's vision. Patient is being seen by ammunition assembly ii laborer or prick stitcher. Hyperlipidemia Concerns: Negative Hyperlipidemia Screen Concerns: no parent or grandparent with CT angina peripheral or cerebrovascular disease <55 years and no parent with cholesterol >240mg/dl Primary Care Review of Systems Objective Vital Signs 12/09/20 1114 BP: 112/63 Pulse: 90 Temp: (more content not included)... Normal [facility] XR SCOLIOSIS - PA ONLYon XR SCOLIOSIS - PA ONLY REASON FOR EXAM: scoliosis ;Adolescent scoliosis COMPARISON: None TECHNIQUE: XR SCOLIOSIS - PA ONLY FINDINGS: 12 rib-bearing and 5 lumbar-type vertebral bodies without anomalies HARDWARE: None CURVATURE: * Curvature 1: There is approximately 37 degrees of dextro convex scoliosis measured from the superior endplate of T5 through the inferior endplate of T11. * Curvature 2: There is approximately 33 degrees of levoconvex scoliosis measured from the superior endplate of T12 to the inferior endplate of L4. SHOULDER HEIGHTS: Right clavicle is elevated 0.9 cm above the left, previously measuring 0.4 cm. PELVIC TILT: Right iliac crest measures approximately 1 cm above the left, previously measuring 0.7 cm. RISSER GRADE: 4 LUNGS: Clear ABDOMEN: Bowel gas pattern is within normal limits IMPRESSION: Scoliosis. IIvelisse, have supervised the procedure and/or image review, and agree with the above interpretation and report. Interpreted by: Ivelisse Reynolds MD Pillai, Sivaram, MD Signed by: Ivelisse Reynolds MD on 03/06/2019 11:12 AM Normal [facility] XR SCOLIOSIS - PA ONLYon XR SCOLIOSIS - PA ONLY REASON FOR EXAM: scoliosis ;Adolescent scoliosis COMPARISON: Scoliosis study 12/11/2017 TECHNIQUE: XR SCOLIOSIS - PA ONLY POSITION: Standing PA view FINDINGS: 12 rib-bearing and 5 lumbar-type vertebral bodies without anomalies. HARDWARE: None. CURVATURE: * Thoracic dextrocurvature measures 47 degrees from T5 to T11 (previously 34 degrees). * Lumbar levocurvature measures 43 degrees from T12 to L4 (previously 34 degrees) SHOULDER HEIGHTS: The right clavicle is elevated 0.4 centimeters above the left. PELVIC TILT: The right iliac crest is elevated 0.7 centimeters above the left. Coronal balance is neutral. 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 Curvature is increased slightly since the prior study. Interpreted by: Naren Clinton MD Signed by: Naren Clinton MD on 08/08/2018 11:[address] [facility] Clostridium difficile detect ion by polymerase chain reaction C. difficile DNA RYAN+probe Ql (Unsp spec) [facility] Work Phone: EP Panel Gastrointestinal pathogens panel RYAN+probe (Stl) [facility] Work Phone: Laboratory - Microbiology an d Antimicrobial susceptibility Respiratory pathogens DNA and RNA 12b panel RYAN+probe (Unsp spec) [facility] Work Phone: No Panel Information Respiratory Panel (PCR) [facility] Work Phone: Stool Clostridium difficile detection C. difficile Ql (Stl) [facility] Work Phone: Vital Signs Date Time Vital Sign Value Performing Clinician Facility 06-05-2023 08:01-0400 Body height 154.94 cm No Primary Care Physician [facility] 06-05-2023 08:01-0400 Body mass index (BMI) [Percentile] Per age and sex 95.6 % No Primary Care Physician [facility] 06-05-2023 08:01-0400 Body mass index (BMI) [Ratio] 32.1 kg/m2 No Primary Care Physician [facility] 06-05-2023 08:01-0400 Body temperature 97.8 [degF] No Primary Care Physician [facility] 06-05-2023 08:01-0400 Body weight 77.16 kg No Primary Care Physician [facility] 06-05-2023 08:01-0400 Diastolic blood pressure 60 mm[Hg] No Primary Care Physician [facility] 06-05-2023 08:01-0400 Heart rate 97 /min No Primary Care Physician [facility] 06-05-2023 08:01-0400 Respiratory rate 16 /min No Primary Care Physician [facility] 06-05-2023 08:01-0400 SaO2% (BldA) [Mass fraction] 98 % No Primary Care Physician [facility] 06-05-2023 08:01-0400 Systolic blood pressure 114 mm[Hg] No Primary Care Physician [facility] 05-14-2023 10:59-0400 Body height 157.48 cm No Primary Care Physician [facility] 05-14-2023 10:58-0400 Body mass index (BMI) [Percentile] Per age and sex 94.4 % No Primary Care Physician [facility] 05-14-2023 10:58-0400 Body mass index (BMI) [Ratio] 30.8 kg/m2 No Primary Care Physician [facility] 05-14-2023 10:58-0400 Body weight 76.43 kg No Primary Care Physician [facility] 05-14-2023 10:58-0400 Diastolic blood pressure 78 mm[Hg] No Primary Care Physician [facility] 05-14-2023 10:58-0400 Systolic blood pressure 121 mm[Hg] No Primary Care Physician [facility] 04-26-2023 11:22-0400 Body mass index (BMI) [Percentile] Per age and sex 93.9 % No Primary Care Physician [facility] 04-26-2023 11:22-0400 Body mass index (BMI) [Ratio] 30.3 kg/m2 No Primary Care Physician [facility] 04-26-2023 11:22-0400 Body weight 75.29 kg No Primary Care Physician [facility] 04-26-2023 11:22-0400 Diastolic blood pressure 82 mm[Hg] No Primary Care Physician [facility] 04-26-2023 11:22-0400 Systolic blood pressure 119 mm[Hg] No Primary Care Physician [facility] 03-21-2023 13:16-0500 Body height 157.48 cm No Primary Care Physician [facility] 03-21-2023 13:16-0500 Body mass index (BMI) [Percentile] Per age and sex 93.1 % No Primary Care Physician [facility] 03-21-2023 13:16-0500 Body mass index (BMI) [Ratio] 29.6 kg/m2 No Primary Care Physician [facility] 03-21-2023 13:16-0500 Body temperature 98.7 [degF] No Primary Care Physician [facility] 03-21-2023 13:16-0500 Body weight 73.48 kg No Primary Care Physician [facility] 03-21-2023 13:16-0500 Diastolic blood pressure 74 mm[Hg] No Primary Care Physician [facility] 03-21-2023 13:16-0500 Heart rate 110 /min No Primary Care Physician [facility] 03-21-2023 13:16-0500 SaO2% (BldA) [Mass fraction] 96 % No Primary Care Physician [facility] 03-21-2023 13:16-0500 Systolic blood pressure 105 mm[Hg] No Primary Care Physician [facility] 02-08-2023 12:30-0500 Body mass index (BMI) [Percentile] Per age and sex 92.2 % No Primary Care Physician [facility] 02-08-2023 12:30-0500 Body mass index (BMI) [Ratio] 29 kg/m2 No Primary Care Physician [facility] 02-08-2023 12:30-0500 Body temperature 98.5 [degF] No Primary Care Physician [facility] 02-08-2023 12:30-0500 Body weight 72.17 kg No Primary Care Physician [facility] 02-08-2023 12:30-0500 Diastolic blood pressure 86 mm[Hg] No Primary Care Physician [facility] 02-08-2023 12:30-0500 Heart rate 70 /min No Primary Care Physician [facility] 02-08-2023 12:30-0500 Respiratory rate 15 /min No Primary Care Physician [facility] 02-08-2023 12:30-0500 SaO2% (BldA) [Mass fraction] 100 % No Primary Care Physician [facility] 02-08-2023 12:30-0500 Systolic blood pressure 131 mm[Hg] No Primary Care Physician [facility] 11-27-2022 18:33-0400 Body temperature 98.4 [degF] Theo Miles APRN.ASSOCIATE SPA DIRECTOR Work Phone: [facility] 11-27-2022 18:33-0400 Body weight 69.85 kg Theo Miles APRN.ASSOCIATE SPA DIRECTOR Work Phone: [facility] 11-27-2022 18:33-0400 Diastolic blood pressure 60 mm[Hg] Theo Miles APRN.ASSOCIATE SPA DIRECTOR Work Phone: [facility] 11-27-2022 18:33-0400 Heart rate 106 /min Theo Miles COMMUNITY RELATIONS SPECIALIST.ASSOCIATE SPA DIRECTOR Work Phone: [facility] 11-27-2022 18:33-0400 Respiratory rate 16 /min Theolizandro Miles COMMUNITY RELATIONS SPECIALIST.ASSOCIATE SPA DIRECTOR Work Phone: [facility] 11-27-2022 18:33-0400 SaO2% (BldA) [Mass fraction] 99 % Theo Miles COMMUNITY RELATIONS SPECIALIST.ASSOCIATE SPA DIRECTOR Work Phone: [facility] 11-27-2022 18:33-0400 Systolic blood pressure 124 mm[Hg] Theo Miles COMMUNITY RELATIONS SPECIALIST.ASSOCIATE SPA DIRECTOR Work Phone: [facility] 08-10-2022 08:26-0400 Body height 158.75 cm No Primary Care Physician [facility] 08-10-2022 08:18-0400 Body mass index (BMI) [Percentile] Per age and sex 76.5 % No Primary Care Physician [facility] 08-10-2022 08:18-0400 Body mass index (BMI) [Ratio] 24.3 kg/m2 No Primary Care Physician [facility] 08-10-2022 08:18-0400 Body weight 60.32 kg No Primary Care Physician [facility] 08-10-2022 08:18-0400 Diastolic blood pressure 73 mm[Hg] No Primary Care Physician [facility] 08-10-2022 08:18-0400 Systolic blood pressure 113 mm[Hg] No Primary Care Physician [facility] 06-25-2022 13:06-0400 Body temperature 98.29 [degF] Daria Cunha COMMUNITY RELATIONS SPECIALIST.ASSOCIATE SPA DIRECTOR Work Phone: [facility] 06-25-2022 13:06-0400 Body weight 56.7 kg Daria Cunha COMMUNITY RELATIONS SPECIALIST.ASSOCIATE SPA DIRECTOR Work Phone: [facility] 06-25-2022 13:06-0400 Diastolic blood pressure 80 mm[Hg] Daria Cunha COMMUNITY RELATIONS SPECIALIST.ASSOCIATE SPA DIRECTOR Work Phone: [facility] 06-25-2022 13:06-0400 Heart rate 76 /min Daria Cunha COMMUNITY RELATIONS SPECIALIST.ASSOCIATE SPA DIRECTOR Work Phone: [facility] 06-25-2022 13:06-0400 Respiratory rate 16 /min Daria Cunha JOSE.ASSOCIATE SPA DIRECTOR Work Phone: [facility] 06-25-2022 13:06-0400 SaO2% (BldA) [Mass fraction] 98 % Daria Cunha JOSE.ASSOCIATE SPA DIRECTOR Work Phone: [facility] 06-25-2022 13:06-0400 Systolic blood pressure 104 mm[Hg] Daria Cunha JOSE.ASSOCIATE SPA DIRECTOR Work Phone: [facility] 03-01-2022 11:21-0500 Body height 158.75 cm No Primary Care Physician [facility] 03-01-2022 11:15-0500 Body mass index (BMI) [Percentile] Per age and sex 68.6 % No Primary Care Physician [facility] 03-01-2022 11:15-0500 Body mass index (BMI) [Ratio] 23.1 kg/m2 No Primary Care Physician [facility] 03-01-2022 11:15-0500 Body weight 58.17 kg No Primary Care Physician [facility] 03-01-2022 11:15-0500 Diastolic blood pressure 72 mm[Hg] No Primary Care Physician [facility] 03-01-2022 11:15-0500 Systolic blood pressure 110 mm[Hg] No Primary Care Physician [facility] 01-09-2022 08:29-0500 Body temperature 98.5 [degF] No Primary Care Physician [facility] 01-09-2022 08:29-0500 Diastolic blood pressure 83 mm[Hg] No Primary Care Physician [facility] 01-09-2022 08:29-0500 Heart rate 86 /min No Primary Care Physician [facility] 01-09-2022 08:29-0500 Respiratory rate 16 /min No Primary Care Physician [facility] 01-09-2022 08:29-0500 SaO2% (BldA) [Mass fraction] 97 % No Primary Care Physician [facility] 01-09-2022 08:29-0500 Systolic blood pressure 119 mm[Hg] No Primary Care Physician [facility] 01-03-2022 12:10-0500 Body temperature 98.8 [degF] No Primary Care Physician [facility] 01-03-2022 12:10-0500 Diastolic blood pressure 73 mm[Hg] No Primary Care Physician [facility] 01-03-2022 12:10-0500 Heart rate 90 /min No Primary Care Physician [facility] 01-03-2022 12:10-0500 Respiratory rate 12 /min No Primary Care Physician [facility] 01-03-2022 12:10-0500 SaO2% (BldA) [Mass fraction] 98 % No Primary Care Physician [facility] 01-03-2022 12:10-0500 Systolic blood pressure 107 mm[Hg] No Primary Care Physician [facility] Encounters Encounter Date Encounter Type Care Provider Facility Start: 11-12-2024 End: 11-12-2024 ambulatory Wm Bedolla VSC Facility:[facility] Start: 11-12-2024 End: 11-12-2024 ambulatory Kaushik AGARWAL Facility:[facility] Start: 10-08-2024 End: 10-08-2024 ambulatory Filipe AGARWAL Facility:[facility] Start: 08-08-2024 End: 08-08-2024 ambulatory Angela Boogie Facility:[facility] Start: 08-05-2024 End: 08-05-2024 ambulatory Kaushik AGARWAL Facility:[facility] Start: 06-24-2024 End: 06-24-2024 ambulatory Angela Boogie Facility:[facility] Start: 06-06-2024 End: 06-06-2024 ambulatory Angela Boogie Facility:[facility] Start: 06-06-2024 End: 06-06-2024 ambulatory Angela Boogie Facility:[facility] Start: 06-04-2024 End: 06-26-2024 ambulatory NICHOLAS MIGUEL [facility] Start: 05-22-2024 End: 05-22-2024 ambulatory Nicholas Miguel Facility:[facility] Start: 04-21-2024 End: 04-21-2024 ambulatory Filipe AGARWAL Facility:[facility] Start: 04-21-2024 End: 04-21-2024 ambulatory Filipe AGARWAL Facility:[facility] Start: 04-16-2024 End: 04-16-2024 ambulatory Wm Bedolla VSC Facility:[facility] Start: 02-27-2024 End: 02-27-2024 Emergency department patient visit Dylan Coronado Facility:[facility] Start: 02-26-2024 End: 02-26-2024 ambulatory Filipecheng Ramírez ANY Facility:[facility] Start: 01-22-2024 End: 01-22-2024 ambulatory Yuko Melgaro Facility:[facility] Start: 01-11-2024 End: 01-11-2024 ambulatory Yuko Crullo Facility:[facility] Start: 12-27-2023 End: 12-27-2023 ambulatory Yukoflorencio Crullo Facility:[facility] Start: 08-31-2023 End: 08-31-2023 Emergency department patient visit ELLIS MEHTA [facility] Start: 06-05-2023 End: 06-05-2023 ambulatory No Primary Care Physician [facility] Work Phone: Start: 06-05-2023 Patient encounter status No Primary Care Physician [facility] Start: 06-05-2023 End: 06-05-2023 Encounter for general adult medical examination without abnormal findings No Primary Care Physician [facility] Start: 06-05-2023 End: 06-05-2023 Patient encounter procedure No Primary Care Physician [facility] Work Phone: Start: 05-14-2023 End: 05-14-2023 Patient encounter procedure No Primary Care Physician [facility] [place] Work Phone: Start: 05-09-2023 End: 05-09-2023 ambulatory No Primary Care Physician [facility] Work Phone: Start: 05-09-2023 End: 05-09-2023 Patient encounter procedure No Primary Care Physician [facility] Work Phone: Start: 04-26-2023 End: 04-26-2023 Patient encounter procedure No Primary Care Physician [facility] @ Start: 03-21-2023 End: 03-21-2023 ambulatory No Primary Care Physician [facility] Work Phone: Start: 03-21-2023 End: 03-21-2023 Patient encounter procedure No Primary Care Physician [facility]-Laboratory, Specimen Work Phone: Start: 03-21-2023 End: 03-21-2023 Patient encounter procedure No Primary Care Physician [facility] Work Phone: Start: 02-08-2023 End: 02-08-2023 Patient encounter procedure No Primary Care Physician [facility] Work Phone: Start: 11-27-2022 End: 11-27-2022 ambulatory [facility] Facility:[facility] Start: 11-27-2022 End: 11-27-2022 Office outpatient visit 25 minutes Theo Miles APRN.ASSOCIATE SPA DIRECTOR Work Phone: [facility] Comment on above: Bullous impetigo (Pr imary Dx) Start: 09-23-2022 End: 09-23-2022 ambulatory No Primary Care Physician [facility] Work Phone: Start: 09-23-2022 End: 09-23-2022 Patient encounter procedure No Primary Care Physician [facility]Laboratory, Specimen Work Phone: Start: 08-22-2022 End: 08-22-2022 Patient encounter procedure No Primary Care Physician [facility] Work Phone: Start: 08-10-2022 End: 08-10-2022 Patient encounter procedure No Primary Care Physician [facility] @ Start: 06-26-2022 End: 06-26-2022 Patient encounter procedure No Primary Care Physician [facility] Work Phone: Start: 06-25-2022 End: 06-25-2022 ambulatory [facility] Facility:[facility] Start: 06-25-2022 End: 06-25-2022 Patient encounter procedure Daria Cunha APRN.ASSOCIATE SPA DIRECTOR Work Phone: [facility] Comment on above: Sore throat (Primary Dx) Start: 03-07-2022 End: 03-07-2022 ambulatory No Primary Care Physician [facility] Work Phone: Start: 03-07-2022 End: 03-07-2022 Patient encounter procedure No Primary Care Physician [facility]-Ultrasound, [facility] Start: 03-01-2022 End: 03-01-2022 ambulatory No Primary Care Physician [facility] Work Phone: Start: 03-01-2022 End: 03-01-2022 Patient encounter procedure No Primary Care Physician [facility]-Laboratory, Specimen Start: 03-01-2022 End: 03-01-2022 Patient encounter procedure No Primary Care Physician [facility] Start: 01-10-2022 End: 01-10-2022 ambulatory No Primary Care Physician [facility] Work Phone: Start: 01-10-2022 End: 01-10-2022 Patient encounter procedure No Primary Care Physician [facility]-Laboratory, Specimen Start: 01-09-2022 End: 01-09-2022 Patient encounter procedure No Primary Care Physician [facility] Start: 01-03-2022 End: 01-03-2022 ambulatory No Primary Care Physician [facility] Work Phone: Start: 01-03-2022 End: 01-03-2022 Patient encounter procedure No Primary Care Physician [facility]-Laboratory, Specimen Start: 01-03-2022 End: 01-03-2022 Patient encounter procedure No Primary Care Physician [facility] Procedures Date Procedure Procedure Detail Performing Clinician Start: 05-09-2023 Pelvic echography No Pr imary Care Physician Start: 03-21-2023 Bacteria identificat ion test No Primary Care Physician Start: 03-21-2023 Urine culture No Primar y Care Physician Start: 11-27-2022 Cul bact xcpt urine blood/stool aerobic isol Theo Miles APRN.ASSOCIATE SPA DIRECTOR Work Phone: Start: 09-23-2022 Bacteria identificat ion test No Primary Care Physician Start: 06-25-2022 STREP A MOLECULAR (POC) Daria Cunha APRN.ASSOCIATE SPA DIRECTOR Work Phone: Start: 03-07-2022 Pelvic echography No Pr imary Care Physician Start: 03-07-2022 Transvaginal echography No Primary Care Physician Clostridium difficil e detection No Primary Care Physician Clostridium difficil e detection No Primary Care Physician Enteric Bacteriology No Prim melody Care Physician Enteric Bacteriology No Prim melody Care Physician Respiratory Panel (PCR) No P rimary Care Physician Respiratory Panel (PCR) No P rimary Care Physician Plan of Treatment Date Care Activity Detail Author Start: 11-07-2025 Urine microalbumin profile [facility] Start: 06-05-2023 Patient referral [facility] Work Phone: Start: 10-13-2022 Influenza vaccination [facility] Start: 08-22-2022 Patient referral [facility] Work Phone: Start: 02-12-2022 DEPRESSION ASSESSMENT DEPRESSION ASSESSMENT [facility] Start: 11-07-2021 CHLAMYDIA SCREENING (18-24) CHLAMYDIA SCREENING (18-24) [facility] Start: 11-07-2021 GC (GONORRHEA) SCREENING (18-24) GC (GONORRHEA) SCREENING (18-24) [facility] Start: 11-07-2021 HEPATITIS C SCREENING HEPATITIS C SCREENING [facility] Start: 11-07-2021 HIV SCREENING HIV SCREENING [facility] Start: 2019 Meningococcal B Vaccine: Consider Based On Risk (1 of 2 - Patient Seeks Protection) Meningococcal B Vaccine: Consider Based On Risk (1 of 2 - Patient Seeks Protection) [facility] Start: 2019 MENINGOCOCCAL CONJUGATE (2 - 2-dose series) MENINGOCOCCAL CONJUGATE (2 - 2-dose series) [facility] Start: 11-07-2017 PEDS TO ADULT TRANSITION ANNUAL ASSESSMENT PEDS TO ADULT TRANSITION ANNUAL ASSESSMENT [facility] Start: 2015 PEDS TO ADULT TRANSITION INITIAL DISCUSSION PEDS TO ADULT TRANSITION INITIAL DISCUSSION [facility] Start: 11-07-2014 HPV VACCINE (1 - 2-dose series) HPV VACCINE (1 - 2-dose series) [facility] Start: 11-07-2013 MENINGOCOCCAL B: Consider based on risk (1 of 2 - Risk Bexsero 2-dose series) MENINGOCOCCAL B: Consider based on risk (1 of 2 - Risk Bexsero 2-dose series) [facility] Start: 11-07-2012 HPV Vaccine (1 - 2-dose series) HPV Vaccine (1 - 2-dose series) [facility] Start: 05-07-2004 COVID-19 VACCINE (#1) COVID-19 VACCINE (#1) [facility] Bacteria identified in Throat by Culture [facility] Bacteria identified in Wound by Culture ABSCESS AND WOUND CULTURE WITH GRAM STAIN Microbiology Routine Bullous impetigo 11/27/2022 6:53 PM EDT [facility] Work Phone: Patient referral [facility] Work Phone: Immunizations Immunization Date Immunization Notes Care Provider Fa jose 12-09-2020 influenza virus vacc ine, unspecified formulation Theo Miles COMMUNITY RELATIONS SPECIALIST.ASSOCIATE SPA DIRECTOR Work Phone: [facility] 11-13-2016 influenza, injectabl e, quadrivalent, contains preservative Daria Alphonse COMMUNITY RELATIONS SPECIALIST.ASSOCIATE SPA DIRECTOR Work Phone: [facility] 10-13-2016 Influenza virus vaccine No P rimary Care Physician [facility] 2015 influenza, injectabl e, quadrivalent, contains preservative Daria Alphonse COMMUNITY RELATIONS SPECIALIST.ASSOCIATE SPA DIRECTOR Work Phone: [facility] 2015 meningococcal polysaccharide (groups A, C, Y and W-135) diphtheria toxoid conjugate vaccine (MCV4P) Daria Alphonse COMMUNITY RELATIONS SPECIALIST.ASSOCIATE SPA DIRECTOR Work Phone: [facility] 2015 tetanus toxoid, redu grupo diphtheria toxoid, and acellular pertussis vaccine, adsorbed Daria Alphonse COMMUNITY RELATIONS SPECIALIST.ASSOCIATE SPA DIRECTOR Work Phone: [facility] 12-27-2012 influenza virus vacc ine, live, attenuated, for intranasal use Daria Alphonse COMMUNITY RELATIONS SPECIALIST.ASSOCIATE SPA DIRECTOR Work Phone: [facility] 11-17-2011 influenza virus vacc ine, live, attenuated, for intranasal use Daria Alphonse COMMUNITY RELATIONS SPECIALIST.ASSOCIATE SPA DIRECTOR Work Phone: [facility] 10-25-2010 influenza virus vacc ine, live, attenuated, for intranasal use Daria Alphonse COMMUNITY RELATIONS SPECIALIST.ASSOCIATE SPA DIRECTOR Work Phone: [facility] 11-23-2009 influenza virus vacc ine, live, attenuated, for intranasal use Daria Cunha COMMUNITY RELATIONS SPECIALIST.ASSOCIATE SPA DIRECTOR Work Phone: [facility] 05-05-2009 diphtheria, tetanus toxoids and acellular pertussis vaccine Daria Cunha COMMUNITY RELATIONS SPECIALIST.ASSOCIATE SPA DIRECTOR Work Phone: [facility] Work Phone: 05-05-2009 measles, mumps and rubella virus vaccine Daria Cunha COMMUNITY RELATIONS SPECIALIST.ASSOCIATE SPA DIRECTOR Work Phone: [facility] Work Phone: 05-05-2009 poliovirus vaccine, inactivated Daria King COMMUNITY RELATIONS SPECIALIST.ASSOCIATE SPA DIRECTOR Work Phone: [facility] Work Phone: 05-05-2009 varicella virus vaccine Marvin Cunha COMMUNITY RELATIONS SPECIALIST.ASSOCIATE SPA DIRECTOR Work Phone: [facility] Work Phone: 12-09-2008 novel influenza-H1N1 -09, all formulations Daria Cunha COMMUNITY RELATIONS SPECIALIST.ASSOCIATE SPA DIRECTOR Work Phone: [facility] Work Phone: 11-25-2008 influenza virus vacc ine, live, attenuated, for intranasal use Daria Cunha COMMUNITY RELATIONS SPECIALIST.ASSOCIATE SPA DIRECTOR Work Phone: [facility] Work Phone: 01-28-2008 influenza virus vacc ine, live, attenuated, for intranasal use Daria Cunha COMMUNITY RELATIONS SPECIALIST.ASSOCIATE SPA DIRECTOR Work Phone: [facility] 05-03-2005 diphtheria, tetanus toxoids and acellular pertussis vaccine Daria Cunha COMMUNITY RELATIONS SPECIALIST.ASSOCIATE SPA DIRECTOR Work Phone: [facility] 05-03-2005 haemophilus influenz ae type b vaccine, HbOC conjugate Daria Cunha COMMUNITY RELATIONS SPECIALIST.ASSOCIATE SPA DIRECTOR Work Phone: [facility] 05-03-2005 varicella virus vaccine Marvin Cunha COMMUNITY RELATIONS SPECIALIST.ASSOCIATE SPA DIRECTOR Work Phone: [facility] 11-28-2004 measles, mumps and rubella virus vaccine Daria Cunha COMMUNITY RELATIONS SPECIALIST.ASSOCIATE SPA DIRECTOR Work Phone: [facility] 05-09-2004 diphtheria, tetanus toxoids and acellular pertussis vaccine Daria Alphonse COMMUNITY RELATIONS SPECIALIST.ASSOCIATE SPA DIRECTOR Work Phone: [facility] 05-09-2004 haemophilus influenz ae type b vaccine, HbOC conjugate Daria Alphonse COMMUNITY RELATIONS SPECIALIST.ASSOCIATE SPA DIRECTOR Work Phone: [facility] 05-09-2004 hepatitis B vaccine, pediatric or pediatric/adolescent dosage Daria Alphonse COMMUNITY RELATIONS SPECIALIST.ASSOCIATE SPA DIRECTOR Work Phone: [facility] 05-09-2004 poliovirus vaccine, inactivated Daria Alphonse COMMUNITY RELATIONS SPECIALIST.ASSOCIATE SPA DIRECTOR Work Phone: [facility] 03-10-2004 diphtheria, tetanus toxoids and acellular pertussis vaccine Daria Alphonse COMMUNITY RELATIONS SPECIALIST.ASSOCIATE SPA DIRECTOR Work Phone: [facility] 03-10-2004 haemophilus influenz ae type b vaccine, HbOC conjugate Daria Alphonse COMMUNITY RELATIONS SPECIALIST.ASSOCIATE SPA DIRECTOR Work Phone: [facility] 03-10-2004 hepatitis B vaccine, pediatric or pediatric/adolescent dosage Daria Alphonse COMMUNITY RELATIONS SPECIALIST.ASSOCIATE SPA DIRECTOR Work Phone: [facility] 03-10-2004 poliovirus vaccine, inactivated Daria Alphonse COMMUNITY RELATIONS SPECIALIST.ASSOCIATE SPA DIRECTOR Work Phone: [facility] 01-08-2004 diphtheria, tetanus toxoids and acellular pertussis vaccine Daria Alphonse COMMUNITY RELATIONS SPECIALIST.ASSOCIATE SPA DIRECTOR Work Phone: [facility] 01-08-2004 haemophilus influenz ae type b vaccine, HbOC conjugate Daria Alphonse COMMUNITY RELATIONS SPECIALIST.ASSOCIATE SPA DIRECTOR Work Phone: [facility] 01-08-2004 hepatitis B vaccine, pediatric or pediatric/adolescent dosage Daria Alphonse COMMUNITY RELATIONS SPECIALIST.ASSOCIATE SPA DIRECTOR Work Phone: [facility] 01-08-2004 poliovirus vaccine, inactivated Daria Alphonse COMMUNITY RELATIONS SPECIALIST.ASSOCIATE SPA DIRECTOR Work Phone: [facility] 2003 hepatitis B vaccine, pediatric or pediatric/adolescent dosage Daria Alphonse COMMUNITY RELATIONS SPECIALIST.ASSOCIATE SPA DIRECTOR Work Phone: [facility] Payers Date Payer Category Payer Self-pay [id number] 2023 Unknown [id number] 2022 Unknown [id number] 2021 Unknown [id number] 2021 Unknown [id number] 2003 Unknown [id number] 2.16.8 [id number] 2003 Unknown [id number] 2.16.8 [id number] Unknown [id number] Unknown [id number] 2.16.8 [id number] Unknown [id number] 2.16.8 [id number] Unknown [id number] 2.16.8 [id number] Unknown [id number] 2.16.8 [id number] Unknown [id number] 2.16.8 [id number] Unknown [id number] 2.16.8 [id number] Unknown [id number] 2.16.8 [id number] Unknown [id number] 2.16.8 [id number] Unknown [id number] 2.16.8 [id number] Unknown [id number] 2.16.8 [id number] Unknown [id number] 2.16.8 [id number] Unknown [id number] 2.16.8 [id number] Unknown [id number] 2.16.8 [id number] Unknown [id number] 2.16.8 [id number] Unknown [id number] 2.16.8 [id number] Unknown [id number] 2.16.8 [id number] Unknown [id number] 2.16.8 [id number] Social History Date Type Detail Facility Start: 01-03-2022 End: 06-05-2023 Tobacco smoking status NHIS Unknown if ever smoked [facility] Start: 04-16-2018 None [facility] Start: 04-16-2018 With Family [facility] Start: 2003 Sex Assigned At Female W [facility] Start: 12-19-2013 Tobacco smoking stat us NHIS Never smoked tobacco [facility] Work Phone: Start: 12-19-2013 Tobacco use and exposure Smokeless tobacco non-user [facility] Work Phone: Start: 06-25-2022 End: 11-27-2022 Alcohol intake Current non-drinker of alcohol (finding) [facility] Start: 2005 Sex Assigned At Not on file [facility] Start: 01-19-2020 End: 11-27-2022 History of Social function [facility] Start: 01-19-2020 End: 11-27-2022 Tobacco use panel [facility] National Score (1-100), lower number is lower risk Not on file [facility] Clinical Notes 04-01-2021 to 11-27-2022 Theo Miles APRN.ASSOCIATE SPA DIRECTOR - 11/27/2022 6:35 PM EDTJojohnny Cunha APRN.ASSOCIATE SPA DIRECTOR - 06/25/2022 1:12 PM EDT Note Date & Type Note Facility 11-27-2022 Note HNO ID: [id number] Author: Theo Miles APRN.ASSOCIATE SPA DIRECTOR Service: ? Author Type: Nurse Practitioner Type: Progress Notes Filed: 11/27/2022 7:08 PM Note Text: Subjective HPI Nontoxic-appearing female presents urgent care chief plaint rash. Duration of symptoms 2 and half weeks. Associated symptoms painful rash. States slightly itchy at times and then becomes painful. States significant other developed rash prior to hers. Has been using antifungal cream and antibiotic cream this has not helped. Overall feels well. Denies any fever body aches chills productive cough chest pain shortness of breath pleuritic pain hemoptysis nausea vomiting abdominal pain change in bowel or bladder habits. Past medical history prescription medication use and allergies reviewed. Denies chance of . Has IUD. .Patient presents with: Rash: all over, lesions x 2.5 weeks. itching and painful PAST MEDICAL HISTORY Diagnosis Date NEGATIVE MEDICAL HISTORY PMH - PAST MEDICAL HISTORY OF 11/25/08 normal color vision Scoliosis 11/08/15 lumbar 37 degrees; thoracic 34 degrees (Ortho referral) PAST SURGICAL HISTORY Procedure Laterality Date NONE ALLERGIES Cheese MEDICATIONS levonorgestrel (MIRENA) 21 mcg/24 hours (8 yrs) 52 mg IUD 1 Each by INTRAUTERINE route one time only. SPRINTEC 0.25-35 mg-mcg per tablet Take 1 tablet by mouth once daily. (Patient not taking: Reported on 11/27/2022) LIDOCAINE VISCOUS 2 % solution Take 5-10 mL by mouth four times daily as needed. (Patient not taking: Reported on 11/27/2022) CHILDREN'S MULTI VITAMINS ORAL Take by mouth once daily. (Patient not taking: Reported on 06/25/2022) FAMILY HISTORY Problem Relation Age of Onset Hypertension Mother Heart Father Heart Paternal Grandfather Asthma Sister None Sister Social History Tobacco Use Smoking status: Never Smokeless tobacco: Never Vaping Use Vaping Use: current everyday user Substance Use Topics Alcohol use: No Drug use: No BP 124/60 Pulse 106 Temp 36.9 ?C (98.4 ?F) Resp 16 Wt 69.9 kg (154 lb) LMP 10/23/2016 (Approximate) SpO2 99% Hr 84 Review of Systems Constitutional: Negative for chills, fever and malaise/fatigue. HENT: Negative for congestion, ear discharge, ear pain, sinus pain and sore throat. Eyes: Negative for blurred vision, pain, discharge and redness. Respiratory: Negative for cough, hemoptysis, sputum production, shortness of breath, wheezing and stridor. Cardiovascular: Negative for chest pain. Gastrointestinal: Negative for abdominal pain, diarrhea, nausea and vomiting. Musculoskeletal: Negative for myalgias. Skin: Positive for itching and rash. Neurological: Negative for dizziness and headaches. Objective Physical Exam Constitutional: General: She is not in acute distress. Appearance: She is not toxic-appearing. HENT: Head: Normocephalic. Nose: Nose normal. Eyes: Pupils: Pupils are equal, round, and reactive to light. Cardiovascular: Rate and Rhythm: Normal rate. Pulmonary: Effort: Pulmonary effort is normal. No respiratory distress. Musculoskeletal: Cervical back: Normal range of motion. Skin: General: Skin is warm and dry. Comments: Scattered rash noted to highlighted areas. Erythematous base with some vesicles noted. Some crusting. No adenopathy noted. Spares mucosal membranes. Neurological: General: No focal deficit present. Mental Status: She is alert. ASSESSMENT/PLAN: 1. Bullous impetigo - ICD9: 684, ICD10: L01.03 - Topical treatment with mupirocin ointment (Bactroban) TID - Systemic treatment with Cephalaxin (Keflex) - Skin care and contagious disease precautions discussed - Follow up if symptoms persist or fail to resolve - ABSCESS AND WOUND CULTURE WITH GRAM STAIN Patient nontoxic-appearing. Suspicious of bullous impetigo. Low suspicion for fungal infection/viral infection. Treat with mupirocin Keflex. Follow-up if symptoms or not improving 2 to 3 days. Patient was educated on supportive therapies.Patient was instructed to immediately proceed to emergency room for any new, worsening, or symptoms lasting longer than anticipated. The patient's clinical presentation is otherwise unremarkable at this time. Based on exam and clinical finding, the patient is stable for discharge. Plan of care was discussed with patient. Patient verbalizes understanding and agrees to plan of care. This note was generated using [employer] software. It may contain errors in wording, punctuation, or spelling. Theo Miles APRN.[facility] 11-27-2022 History of Present illness Narrative Images from the original note were not included. Subjective HPI Nontoxic-appearing female presents urgent care chief plaint rash. Duration of symptoms 2 and half weeks. Associated symptoms painful rash. States slightly itchy at times and then becomes painful. States significant other developed rash prior to hers. Has been using antifungal cream and antibiotic cream this has not helped. Overall feels well. Denies any fever body aches chills productive cough chest pain shortness of breath pleuritic pain hemoptysis nausea vomiting abdominal pain change in bowel or bladder habits. Past medical history prescription medication use and allergies reviewed. Denies chance of . Has IUD. .Patient presents with: Rash: all over, lesions x 2.5 weeks. itching and painful PAST MEDICAL HISTORY Diagnosis Date NEGATIVE MEDICAL HISTORY PMH - PAST MEDICAL HISTORY OF 11/25/08 normal color vision Scoliosis 11/08/15 lumbar 37 degrees; thoracic 34 degrees (Ortho referral) PAST SURGICAL HISTORY Procedure Laterality Date NONE ALLERGIES Cheese MEDICATIONS levonorgestrel (MIRENA) 21 mcg/24 hours (8 yrs) 52 mg IUD 1 Each by INTRAUTERINE route one time only. SPRINTEC 0.25-35 mg-mcg per tablet Take 1 tablet by mouth once daily. (Patient not taking: Reported on 11/27/2022) LIDOCAINE VISCOUS 2 % solution Take 5-10 mL by mouth four times daily as needed. (Patient not taking: Reported on 11/27/2022) CHILDREN'S MULTI VITAMINS ORAL Take by mouth once daily. (Patient not taking: Reported on 06/25/2022) FAMILY HISTORY Problem Relation Age of Onset Hypertension Mother Heart Father Heart Paternal Grandfather Asthma Sister None Sister Social History Tobacco Use Smoking status: Never Smokeless tobacco: Never Vaping Use Vaping Use: current everyday user Substance Use Topics Alcohol use: No Drug use: No BP 124/60 Pulse 106 Temp 36.9 C (98.4 F) Resp 16 Wt 69.9 kg (154 lb) LMP 10/23/2016 (Approximate) SpO2 99% Hr 84 Review of Systems Constitutional: Negative for chills, fever and malaise/fatigue. HENT: Negative for congestion, ear discharge, ear pain, sinus pain and sore throat. Eyes: Negative for blurred vision, pain, discharge and redness. Respiratory: Negative for cough, hemoptysis, sputum production, shortness of breath, wheezing and stridor. Cardiovascular: Negative for chest pain. Gastrointestinal: Negative for abdominal pain, diarrhea, nausea and vomiting. Musculoskeletal: Negative for myalgias. Skin: Positive for itching and rash. Neurological: Negative for dizziness and headaches. Objective Physical Exam Constitutional: General: She is not in acute distress. Appearance: She is not toxic-appearing. HENT: Head: Normocephalic. Nose: Nose normal. Eyes: Pupils: Pupils are equal, round, and reactive to light. Cardiovascular: Rate and Rhythm: Normal rate. Pulmonary: Effort: Pulmonary effort is normal. No respiratory distress. Musculoskeletal: Cervical back: Normal range of motion. Skin: General: Skin is warm and dry. Comments: Scattered rash noted to highlighted areas. Erythematous base with some vesicles noted. Some crusting. No adenopathy noted. Spares mucosal membranes. Neurological: General: No focal deficit present. Mental Status: She is alert. ASSESSMENT/PLAN: 1. Bullous impetigo - ICD9: 684, ICD10: L01.03 - Topical treatment with mupirocin ointment (Bactroban) TID - Systemic treatment with Cephalaxin (Keflex) - Skin care and contagious disease precautions discussed - Follow up if symptoms persist or fail to resolve - ABSCESS AND WOUND CULTURE WITH GRAM STAIN Patient nontoxic-appearing. Suspicious of bullous impetigo. Low suspicion for fungal infection/viral infection. Treat with mupirocin Keflex. Follow-up if symptoms or not improving 2 to 3 days. Patient was educated on supportive therapies.Patient was instructed to immediately proceed to emergency room for any new, worsening, or symptoms lasting longer than anticipated. The patient's clinical presentation is otherwise unremarkable at this time. Based on exam and clinical finding, the patient is stable for discharge. Plan of care was discussed with patient. Patient verbalizes understanding and agrees to plan of care. This note was generated using [employer] software. It may contain errors in wording, punctuation, or spelling. Theo Miles APRN.ARELY documented in this encounter [facility] 06-25-2022 Note HNO ID: [id number] Author: Daria Cunha APRN.ARELY Service: ? Author Type: Nurse Practitioner Type: Progress Notes Filed: 06/25/2022 1:29 PM Note Text: Subjective HPI HPI Lety Alves is a 16 year old female who presents today for CC of st, cough, fever. This started 1 day ago. Has tried otc medication for relief. Symptoms are worsened by nothign. Risk factors hx of strep and severe mono. Denies possibility of being . vapes. .Patient presents with: Sore Throat PAST MEDICAL HISTORY Diagnosis Date NEGATIVE MEDICAL HISTORY PMH - PAST MEDICAL HISTORY OF 11/25/08 normal color vision Scoliosis 11/08/15 lumbar 37 degrees; thoracic 34 degrees (Ortho referral) PAST SURGICAL HISTORY Procedure Laterality Date NONE ALLERGIES Cheese MEDICATIONS SPRINTEC 0.25-35 mg-mcg per tablet Take 1 tablet by mouth once daily. CHILDREN'S MULTI VITAMINS ORAL Take by mouth once daily. (Patient not taking: Reported on 06/25/2022) FAMILY HISTORY Problem Relation Age of Onset Hypertension Mother Heart Father Heart Paternal Grandfather Asthma Sister None Sister Social History Tobacco Use Smoking status: Never Smokeless tobacco: Never Vaping Use Vaping Use: current everyday user Substance Use Topics Alcohol use: No Drug use: No Review of Systems Constitutional: Positive for fever. HENT: Positive for congestion and sore throat. Negative for ear pain and nosebleeds. Respiratory: Positive for cough. Negative for shortness of breath and wheezing. Musculoskeletal: Negative for neck pain. Objective Blood pressure 104/80, pulse 76, temperature 36.8 ?C (98.3 ?F), resp. rate 16, weight 56.7 kg (125 lb), last menstrual period 10/23/2016, SpO2 98 %. Physical Exam Constitutional: General: She is not in acute distress. Appearance: She is not toxic-appearing or diaphoretic. HENT: Head: Normocephalic and atraumatic. Right Ear: Hearing, tympanic membrane, ear canal and external ear normal. Left Ear: Hearing, tympanic membrane, ear canal and external ear normal. Nose: Nose normal. Mouth/Throat: Pharynx: Uvula midline. Oropharyngeal exudate and posterior oropharyngeal erythema present. No pharyngeal swelling or uvula swelling. Tonsils: Tonsillar exudate present. 2+ on the right. 2+ on the left. Eyes: General: Lids are normal. No scleral icterus. Right eye: No discharge. Left eye: No discharge. Conjunctiva/sclera: Conjunctivae normal. Pupils: Pupils are equal, round, and reactive to light. Neck: Trachea: Trachea normal. Cardiovascular: Rate and Rhythm: Normal rate and regular rhythm. Heart sounds: Normal heart sounds. Pulmonary: Effort: Pulmonary effort is normal. Breath sounds: Normal breath sounds. Abdominal: General: Abdomen is flat. Palpations: Abdomen is soft. There is no hepatomegaly or splenomegaly. Tenderness: There is no abdominal tenderness. Musculoskeletal: Cervical back: Normal range of motion and neck supple. Lymphadenopathy: Cervical: No cervical adenopathy. Right cervical: No superficial cervical adenopathy. Left cervical: No superficial cervical adenopathy. Skin: Findings: No rash. Neurological: Mental Status: She is alert and oriented to person, place, and time. ASSESSMENT/PLAN: 1. Sore throat - ICD9: 462, ICD10: J02.9 - suspect viral - Alere Strep Test neg, no culture pending - Discussed supportive care treatment with fluids, rest and analgesia. - The patient should follow up in 3-5 days if symptoms persist or worsen - Call back if drooling, increased temperature, symptoms of dehydration and/or still sick in one week - STREP A MOLECULAR (POC) - PREDNISONE 10 MG TABLET - LIDOCAINE HCL 2 % MUCOSAL SOLUTION Daria Cunha APRN.[facility] 06-25-2022 History of Present illness Narrative Subjective HPI HPI Lety Alves is a 16 year old female who presents today for CC of st, cough, fever. This started 1 day ago. Has tried otc medication for relief. Symptoms are worsened by nothign. Risk factors hx of strep and severe mono. Denies possibility of being . vapes. .Patient presents with: Sore Throat PAST MEDICAL HISTORY Diagnosis Date NEGATIVE MEDICAL HISTORY PMH - PAST MEDICAL HISTORY OF 11/25/08 normal color vision Scoliosis 11/08/15 lumbar 37 degrees; thoracic 34 degrees (Ortho referral) PAST SURGICAL HISTORY Procedure Laterality Date NONE ALLERGIES Cheese MEDICATIONS SPRINTEC 0.25-35 mg-mcg per tablet Take 1 tablet by mouth once daily. CHILDREN'S MULTI VITAMINS ORAL Take by mouth once daily. (Patient not taking: Reported on 06/25/2022) FAMILY HISTORY Problem Relation Age of Onset Hypertension Mother Heart Father Heart Paternal Grandfather Asthma Sister None Sister Social History Tobacco Use Smoking status: Never Smokeless tobacco: Never Vaping Use Vaping Use: current everyday user Substance Use Topics Alcohol use: No Drug use: No Review of Systems Constitutional: Positive for fever. HENT: Positive for congestion and sore throat. Negative for ear pain and nosebleeds. Respiratory: Positive for cough. Negative for shortness of breath and wheezing. Musculoskeletal: Negative for neck pain. Objective Blood pressure 104/80, pulse 76, temperature 36.8 C (98.3 F), resp. rate 16, weight 56.7 kg (125 lb), last menstrual period 10/23/2016, SpO2 98 %. Physical Exam Constitutional: General: She is not in acute distress. Appearance: She is not toxic-appearing or diaphoretic. HENT: Head: Normocephalic and atraumatic. Right Ear: Hearing, tympanic membrane, ear canal and external ear normal. Left Ear: Hearing, tympanic membrane, ear canal and external ear normal. Nose: Nose normal. Mouth/Throat: Pharynx: Uvula midline. Oropharyngeal exudate and posterior oropharyngeal erythema present. No pharyngeal swelling or uvula swelling. Tonsils: Tonsillar exudate present. 2+ on the right. 2+ on the left. Eyes: General: Lids are normal. No scleral icterus. Right eye: No discharge. Left eye: No discharge. Conjunctiva/sclera: Conjunctivae normal. Pupils: Pupils are equal, round, and reactive to light. Neck: Trachea: Trachea normal. Cardiovascular: Rate and Rhythm: Normal rate and regular rhythm. Heart sounds: Normal heart sounds. Pulmonary: Effort: Pulmonary effort is normal. Breath sounds: Normal breath sounds. Abdominal: General: Abdomen is flat. Palpations: Abdomen is soft. There is no hepatomegaly or splenomegaly. Tenderness: There is no abdominal tenderness. Musculoskeletal: Cervical back: Normal range of motion and neck supple. Lymphadenopathy: Cervical: No cervical adenopathy. Right cervical: No superficial cervical adenopathy. Left cervical: No superficial cervical adenopathy. Skin: Findings: No rash. Neurological: Mental Status: She is alert and oriented to person, place, and time. ASSESSMENT/PLAN: 1. Sore throat - ICD9: 462, ICD10: J02.9 - suspect viral - Alere Strep Test neg, no culture pending - Discussed supportive care treatment with fluids, rest and analgesia. - The patient should follow up in 3-5 days if symptoms persist or worsen - Call back if drooling, increased temperature, symptoms of dehydration and/or still sick in one week - STREP A MOLECULAR (POC) - PREDNISONE 10 MG TABLET - LIDOCAINE HCL 2 % MUCOSAL SOLUTION Daria Cunha APRN.ARELY documented in this encounter [facility] 04-01-2021 Note Lety is a 15 y.o. female who presents to our office today for evaluation of a 2 month history of what sounds like chronic, idiopathic/spontaenous urticaria. She says when it first started she seemed to have hives with eating but then she would also have hives without eating. She last had hives over a week ago and at times she has some lower lip swelling with these and she supplied pictures of hives on her chin, neck and face and she says she also gets them on her chest. At baseline, she denies increased hives in areas of pressure, rubbing or friction and she does not notice issues with increased temperature or cold temperature. Regarding foods, with powdered cheese/fake cheese, she may get hives per mom so actually she has a previous history of hives in the past and per mom this was with fake cheese (?). After 2-3 weeks, her symptoms improved but she has some return in symptoms. Claritin-D and Zyrtec were briefly attempted. Then on 03/31/21, she was seen by Dr. Merrill for IBS type issues and per mom she has experienced IBS issues for 4 years and then she had C.diff in March 2017 and had C.diff and had issues with this for 6 months and she was seen by GI for this and she was scoped and then she had an abnormal HIDA scan and underwent Cholecystectomy as well. Mom thinks her GI issues may be associated with hormonal fluctuations and she did not notice any hives with her menses. She presents with mom for evaluation and Periactin was prescribed by Dr. Merrill and has not been taken as yet. -She presents with mom for evaluation. Environmental Survey/Social History: Lives with mother and step dad and 2 sisters. Special Needs: None Preferred Language: Maltese Pets: Yes: 1 dog, not new School/Daycare: Yes: [employer] and does school from home. Smoking/Alcohol/Drug Use or Exposure: No Recreational Activities/Sports: She denies vaping. 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 Review of Systems/Past Medical History: Constitutional: denies fever, chills, weight loss. Eyes: denies vision changes, color blindness. Ears, nose throat and mouth: see narrative above. No recurrent nasal or sinus type symptoms. Respiratory: denies wheezing, cough or chest tightness/ see above narrative. Gastrointestinal: denies diarrhea, constipation, emesis. Genitourinary: denies dysuria or urine odor. Skin/integumentary: denies nail changes or other rash. Neurologic: denies seizures, weakness or speech problems. Hematologic/lymphatic: denies pallor. Allergic/Immunologic: see narrative above. No previous history of significant eczema (maybe some mild eczema) but she used to have some history of hives at times. *Regarding bee stings, no issues (she has been stung). Past Medical History: Diagnosis Date Scoliosis curve is about 48 degrees Past Surgical History: Procedure Laterality Date CHOLECYSTECTOMY, LAPAROSCOPIC N/A 01/08/2019 LAPAROSCOPIC CHOLECYSTECTOMY WITHOUT CHOLANGIOGRAM performed by Gabriele Sarmiento MD at [facility] OR ESOPHAGOSCOPY N/A 09/06/2018 ENDOSCOPY (UPPER AND COLONOSCOPY) performed by Ansley Farias MD at [facility] OR [place] ANESTH,UGI ENDOSCOPY Current Outpatient Medications Medication Sig Dispense Refill APRI 0.15-30 MG-MCG per tablet Multiple Vitamins-Minerals (ONE-A-DAY TEEN ADVANTAGE/HER PO) Take 1 Tablet by mouth daily cyproheptadine (PERIACTIN) 4 MG tablet Take 1 Tablet (4 mg) by mouth every 12 hours as needed for Allergies (Patient not taking: Reported on 04/01/2021) 60 Tablet 1 diphenhydrAMINE (BENADRYL) 25 MG capsule Take by mouth every 6 hours as needed for Itching (Patient not taking: Reported on 04/01/2021) cetirizine (ZYRTEC) 10 MG tablet Take 1 Tablet (10 mg) by mouth daily (Patient not taking: No sig reported) 30 Tablet 11 ondansetron (ZOFRAN) 4 MG tablet Take 1 Tablet (4 mg) by mouth every 8 hours as needed for Nausea (Patient not taking: No sig reported) 10 Tablet 1 acetaminophen (TYLENOL) 325 MG tablet Take 2 Tabs (650 mg) by mouth every 6 hours as needed for Pain or Fever (Patient not taking: No sig reported) Ibuprofen (MOTRIN) 400 MG tablet Take 1 Tab (400 mg) by mouth every 6 hours as needed for Pain or Fever (Patient not taking: No sig reported) No current facility-administered medications for this visit. Family History Problem Relation Age of Onset Irritable Bowel Syndrome Mother Anesth Problems Neg Hx Blood Disorders Neg Hx Cancer Neg Hx Celiac Disease Neg Hx Colon Cancer Neg Hx Colon Polyps Neg Hx Crohn's Disease Neg Hx Cystic Fibrosis Neg Hx Eosinophilic Esophagitis Neg Hx Hirschsprung's disease Neg Hx Kidney Disease Neg Hx Liver Disease Neg Hx Pancreatic Disease Neg Hx Stomach Ulcer(s) Neg Hx Thyroid Disease Neg Hx Ulcerative Colitis Neg Hx Bleeding Problem Neg Hx Allergies: NKDA. PE: Nursing note and Vital signs reviewed. Resp 16 Ht (!) 154.9 cm Wt 58.2 kg BMI 24.24 kg/m Constitutional: She was awake, alert and in no a (more content not included)... [facility] Evaluation note Diagnosis Onset Date Acute sinusitis acute [facility] Work Phone: Evaluation note* Diagnosis Onset Date Resolution Status Acute sinusitis acute Diarrhea acute [facility] Work Phone: Evaluation note* Diagnosis Onset Date Resolution Status Dysmenorrhea acute Encounter for routine gynecological examination noneactive STD exposure noneactive [facility] Work Phone: Evaluation note* Diagnosis Sore throat- Primary Acute ph[facility]itis [facility] Diagnosis Onset Date Resolution Status Strep pharyngitis acute Contraception management acu te Recurrent acute tonsillitis acute [facility] Work Phone: Evaluation note* Diagnosis Bullous impetigo- Primary Impetigo [facility] Diagnosis Onset Date Resolution Status Acute upper respiratory infection acute Viral URI with cough acute [facility] Work Phone: Evaluation note* Diagnosis Onset Date Resolution Status Acute upper respiratory infection acute Viral URI with cough acute Dyspareunia acute IBS (irritable bowel syndrome) acute Abnormal uterine bleeding (AUB) acute [facility] Work Phone: Evaluation note* Diagnosis Onset Date Resolution Status Viral URI with cough acute Dyspareunia acute IBS (irritable bowel syndrome) acute Abnormal uterine bleeding (AUB) acute Depression acute Encounter to establish care acute Fatigue acute Headache acute Preventative health care acu te Weight gain acute [facility] Work Phone: Summary Purpose Family History No Family History Records Found Relationship Condition Age at Onset Recorded Date/T dc grandfather Cardiac disease Unknown Not Specified History of blood clots Unknown Relationship Condition Age at Onset Recorded Date/T dc grandfather Cardiac disease Unknown Not Specified History of blood clots Unknown grandmother Diabetes mellitus Unknown Advance Directives No Advanced Directives Records FoundNo Advanced Directives Records FoundNo Advanced Directives Records FoundNo Advanced Directives Records FoundNo Advanced Directives Records Found Chief Complaint and Reason for Visit Chief Complaint COUGH, SINUS/ACHY Reason for Visit Acute sinusitis Chief Complaint COUGH, SINUS/ACHY WANTS TESTED FOR C DIFF LABSPEC Reason for Visit Acute sinusitis Diarrhea Chief Complaint COUGH, SINUS/ACHY WANTS TESTED FOR C DIFF LABSPEC 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) PELVIC PAIN Reason for Visit Dysmenorrhea Encounter for routine gynecological examination STD exposure Chief Complaint STREP THROAT Dicuss BC options, possible IUD insertion STREP THROAT Reason for Visit Strep pharyngitis Contraception management Recurrent acute tonsillitis Chief Complaint SORE THROAT SINUS CONGESTION/ UTI Reason for Visit Acute upper respirat ory infection Viral URI with cough Chief Complaint SORE THROAT SINUS CONGESTION/ UTI IUD ISSUES PELVIC PAIN AUB/right side pelvic pain Reason for Visit Acute upper respirat ory infection Viral URI with cough Dyspareunia IBS (irritable bowel syndrome) Abnormal uterine bleeding (AUB) Chief Complaint SINUS CONGESTION/ UT I IUD ISSUES PELVIC PAIN AUB/right side pelvic pain ACUTE - [employer]. EST CARE - REQ YUKO/NEEDS PPW Reason for Visit Viral URI with cough Dyspareunia IBS (irritable bowel syndrome) Abnormal uterine bleeding (AUB) Depression Encounter to establish care Fatigue Headache Preventative health care Weight gain Additional Source Comments INFORMATION SOURCE (unrecogn ized section and content) DATE CREATED AUTHOR 03/10/2019 [facility] DATE CREATED AUTHOR DAYANNA POTTER ATJESSY 09/16/[address] [facility] DATE CREATED AUTHOR AUTHOR'S ORGANIZ ATION 12/03/2022 [facility] DATE CREATED AUTHOR AUTHOR'S ORGANIZ ATION [facility] DATE CREATED AUTHOR AUTHOR'S ORGANIZ ATION 12/07/2024 [facility] Goals (unrecognized section and content) Goals may be documented in a n alternate sectionGoals may be documented in an alternate sectionGoals may be documented in an alternate sectionGoals may be documented in an alternate sectionGoals may be documented in an alternate sectionGoals may be documented in an alternate sectionGoals may be documented in an alternate sectionGoals may be documented in an alternate section Care Teams (unrecognized sec tion and content) Team Status: Active Member Role Status Dates Dr. Sofi De Los Santos MD Family Provider Active No Primary Care Physician Primary Care Provider Active Team Status: Inactive Member Role Status Dates No Primary Care Physician Primary Care Provider, Refer ring Provider Active ANY Wang Attending Provider Active Team Status: Inactive Member Role Status Dates No Primary Care Physician Primary Care Provider, Refer ring Provider Active Laura Espana [employer], [employer] Attending Provider Active Team Status: Inactive Member Role Status Dates No Primary Care Physician Primary Care Provider Active ANY Wang Attending Provider Active Team Status: Inactive Member Role Status Dates No Primary Care Physician Primary Care Provider Active Laura Espana [employer], [employer] Attending Provider Active Team Status: Active Member Role Status Dates No Primary Care Physician Primary Care Provider Active Laura Espana [employer], [employer] Attending Provider, Referring Provider Active Team Status: Inactive Member Role Status Dates No Primary Care Physician Primary Care Provider Active Laura Espana [employer], [employer] Attending Provider, Referring Provider Active Harp Repairer Relationship Specialty Start Date End Date Sofi De Los Santos [address] [place] [address] PCP - General Pediatrics 10/16/18 Team Status: Inactive Member Role Status Dates No Primary Care Physician Primary Care Provider, Refer ring Provider Active Angela Boogie CNM Attending Provider Active Team Status: Inactive Member Role Status Dates No Primary Care Physician Primary Care Provider Active Dr. Mihir Contreras MD Attending Provider, Referring P saad Active Harp Repairer Relationship Specialty Start Date End Date Sofi De Los Santos [address] [place] [address] PCP - General Pediatrics 10/16/18 Team Status: Inactive Member Role Status Dates No Primary Care Physician Primary Care Provider, Refer ring Provider Active Justin AGARWAL PA Attending Provider Active Team Status: Inactive Member Role Status Dates No Primary Care Physician Primary Care Provider Active Angela Boogie CNM Attending Provider, Referring Pr rosalba Active Team Status: Active Member Role Status Dates Dr. Sofi De Los Santos MD Family Provider Active SHARON Venegas Primary Care Provider Active Team Status: Inactive Member Role Status Dates No Primary Care Physician Primary Care Provider, Refer ring Provider Active SHARON Venegas Attending Provider Active Team Status: Inactive Member Role Status Dates Yuko Jackson NP-Adrien Primary Care Provider, Attending Provider Active Source Comments (unrecognize d section and content) In the event this informatio n is protected by the Federal Confidentiality of Alcohol and Drug Abuse Patient Records regulations: The Federal rules restrict any use of the information to criminally investigate or prosecute any alcohol or drug abuse patient.[facility] the event this information is protected by the Federal Confidentiality of Alcohol and Drug Abuse Patient Records regulations: The Federal rules restrict any use of the information to criminally investigate or prosecute any alcohol or drug abuse patient.[facility] Reason for Visit (unrecogniz ed section and content) Reason Comments Sore Throat Reason Comments Rash all over, lesions x 2.5 weeks. itching and painful FOR RECORDS PERTAINING TO PATIENTS WHO ARE OR HAVE BEEN ENROLLED IN A CHEMICAL DEPENDENCY/SUBSTANCEABUSE PROGRAM, SOME INFORMATION MAY BE OMITTED. This clinical summary was aggregated from multiple sources. Caution should be exercised in using it in the provision of clinical care. This summary normalizes information from multiple sources, and as a consequence, information in this document may materially change the coding, format and clinical context of patient data. In addition, data may be omitted in some cases. CLINICAL DECISIONS SHOULD BE BASED ON THE PRIMARY CLINICAL RECORDS. [facility]. provides no warranty or guarantee of the accuracy or completeness of information in this document.
[2025-01-07 15:15] LABS: AST(SGOT) 24 U/L (<=31); Alanine Aminotransfer ALT/SGPT 36 U/L (<=34); Albumin, Serum 4.2 g/dL (3.5-5.0); Alkaline Phosphatase 65 U/L (35-104); Anion Gap 11 (5-15); BUN 12 mg/dL (4-19); BUN/Creat Ratio 16.6 RATIO (10-20); Calcium,Total 9.3 mg/dL (7.6-11.0); Carbon Dioxide 23.3 mmol/L (21.0-32.0); Chloride 105 mmol/L (98-108); Follicle Stimulating Hormone 5.2 mIU/mL; Globulin 3.2 g/dL (2.2-4.2); Glucose 92 mg/dL (70-99); Potassium 4.3 mmol/L (3.3-5.1); Vitamin B12 409 pg/mL (180-914)
[2025-01-07 15:38] LABS: Iron 137 ug/dL (50-170); Iron Binding Capacity,Total 332 ug/dL (250-450); Iron Binding Capacity,Unsat 195 ug/dL (228-428)
[2025-01-07 16:33] LABS: FOLATES,SERUM (FOLIC ACID) 13.10 ng/mL (4.60-34.80)
== END | disposition home or self-care (01) ==
LOC: LAB 14:16 → PAVLAB 14:17
PROVIDERS: Referring Provider Nurse Practitioner Family; Visit Provider Nurse Practitioner Family
DX: N92.0 Excessive and frequent menstruation with regular cycle (principal)
CPT/HCPCS: 36415; 80053; 82607; 82670; 82746; 83001; 83002; 83036; 83540; 83550; 84443; 85025

== ENCOUNTER → 2025-01-09 | Outpatient (CLI) | payer OTHER, SELFPAY ==
--- OUTSIDE RECORDS SUMMARY | 2025-01-09 13:31 | XMS RPT_ITS | CCD ---
Author Organization [facility] Care Team Providers Care Glue Plant Operator Name Role Phone Care Physician, No Primary Primary Care Provider Unavailable Care Physician, No Primary Referring Provider Un available ANY Espinal Attending Provider SHARON Espana NP Attending Provider Sofi De Los Santos Primary Care Provider [phone] Care Physician, No Primary Primary Care Provider [...] No Primary Referring Provider Un available SHARON aJckson Attending Provider ELLIS MEHTA Attending Unavailable ELLIS [...] Translations: [CHEESE] Allergy to substance 6 Hives [facility] (3 sources) Amoxicillin Drug Allergy 4 Other, loose stools [facility] (1 source) Amoxicillin Drug Allergy [facility] Repository (1 source) Amoxicillin Drug Allergy [facility] Repository Medications Current Medications Medication Drug Class(es) [...] on above: Take 1 capsule by mo [facility] three times a day for 7 days. mupirocin 0.02 mg/mg topical ointment (1 source) RNA Synthetase Inhibitor Antibacterial Start: 11-27-2022 End: 12-02-2022 mupirocin (BACTROBAN) 2 % ointment Apply to affected area three times a day for 5 days. 30 g 0 11/27/2022 12/02/2022 Active Comment on above: Apply to affected ar ea three times a day for 5 days. [place] (Nk) (2 sources) Start: 05-14-2023 [place] (Nk) Active May 14, 2023 12:00am predniSONE [...] on above: Take 1 capsule by mo [facility] once daily. levonorgestrel 0.747581 mg/hr intrauterine system (1 source) Progestin, Progestin-containing [...] 3 Viewson Nasal Bones min 3 Views [facility] Imaging Services [address] [place], [place] [id number] Nasal Bones min 3 Views MR#: [id number] Acct: [id number] Name: LETY ALVES Rep #: [id number] : 2005 F 19 From: Adam Matute PCP: Wm Bedolla [facility] SQL DATA ANALYST-C Status: REG CLI Study: Nasal Bones min 3 Views Date of Exam: 11/12/24 Exam# [id number] Ordering Dr: Kaushik Rincon PROCEDURE: NASAL BONES [...] out a currently occult fracture. Reading Location: [id number] CC: ANY Hahn; Wm [facility] SQL DATA ANALYST-C Graeme Associate Theatre Professor: Signed Normal [facility] Urgent Care Visit Reporton 1 Urgent Care Visit Report [facility] [address], [address] [place] [address] OFFICE VISIT Date of Service: 11/12/24 MR#: [id number] Acct: [id number] Name: LETY ALVES Rep #: [id number] : 2005 Provider: ANY Hahn Age/Sex: 19/F [place] [facility] Status: Signed Intake Vital Signs 06/24/24 15:27 [...] bleeding. Still painful. Taking ibuprofen this AM. [facility] Medical History (Updated 11/12/24 @ [...] time of the incident and her symptoms. Xejn-ugc-nvrkyza ibuprofen taken with minimal assist. No other associated symptoms and no other alleviating/aggravat ing factors. ROS Const Constitutional: No other (As above) Exam Const General: cooperative, healthy appearing and no acute distress Orientation: alert and awake [facility] Head: normal to inspection Ears: hearing grossly [...] normal Mood: (more content not included)... Normal [facility] Office Visit Reporton 2024 Office Visit Report [facility] [address] [place] [address] OFFICE VISIT Date of Service: 10/08/24 MR#: [id number] Acct: [id number] Patient: LETY ALVES Rep #: [id number] : 2005 Provider: ANY Tate Age/Sex: 18/F Location: [facility] Status: Signed Intake Vital Signs 06/24/24 [...] - O (more content not included)... Normal [facility] Pelvic w/ Transvaginalon Pelvic w/ Transvaginal [facility] Imaging Services [address] [place] [address] Pelvic w/ Transvaginal MR#: [id number] Acct: [id number] Name: LETY ALVES Rep #: [id number] : 2005 F 18 From: Ty Reed MD PCP: Wm Bedolla [facility] SQL DATA ANALYST-C Status: REG CLI Study: Pelvic w/ Transvaginal Date of Exam: 08/08/24 Exam# [id number] Ordering Dr: Angela Boogie CNM PROCEDURE: PELVIC [...] Reading Location: PEDRO CC: ZELALEM Boogie; Wm [facility] SQL DATA ANALYST-C Graeme Associate Theatre Professor: Signed Normal [facility] Urgent Care Visit Reporton 0 08-05-2024 Urgent Care Visit Report [facility] [address] [facility] [address], [address] [place] [address] OFFICE VISIT Date of Service: 08/05/24 MR#: [id number] Acct: [id number] Name: LETY ALVESSRIDHARDOMINIC Rep #: [id number] : 2005 Provider: ANY Hahn Age/Sex: 18/F Location[place] [facility] Status: Signed Intake Vital Signs 06/24/24 15:27 08/05/24 12:23 Height 5 ft 2 in BP 122/78 H Blood Pressure Location Lt brachial Position Sitting Respiration 14 Pulse 68 Pulse Source Auscultation Temp 98.2 F Temp Source Oral Intake Visit Reasons: ITCHING EVERYWHERE Chief Complaint: Lumbar spine pain Allergies amoxicillin Adverse Reaction (Severe, Verified 06/24/24 15:26) loose stools [facility] Medical History (Updated 08/05/24 @ [...] Acute Plan: Prednisone as prescribed today. Continue hytm-nxo-wfrfgcc and histamines such as Benadryl and Zyrtec as needed. Supportive/linen and skin care measures as instructed today. Follow-up with PCP in 3 to 5 days should symptoms not resolve, ED sooner should symptoms only worsen or any other concerns develop. Patient states acknowledging understanding all the above. This note was generated with ZeroMail dictation software. It may contain incorrect words, spelling, and punctuation that were not noted in checking the note before signing. Medications: New prednisone 4 tablets daily x3 days, then 3 tablets daily x3 days, then 2 tablets daily x3 days, then 1 tablet daily x3 days 10 mg PO DAILY 30 tabs 0RF 08/05/24 1228 Date __ (more content not included)... Normal [facility] Manager Infusion Office Visit Reporton 06-24-2024 Manager Infusion Office Visit Report [facility] [address] [place] [address], [address] [place] [address] OFFICE VISIT Date of Service: 06/24/24 MR#: [id number] Acct: [id number] Name: LETY ALVES Rep #: [id number] : 2005 Provider: ZELALEM godinez Age/Sex: 18/F [place] [facility] Status: Signed Intake Vital Signs 06/06/24 09:59 06/24/24 15:25 06/24/24 15:27 Height 5 ft 2 in 5 ft 2 in 5 ft 2 in Weight: 169 lb 2 oz 174 lb BMI 30.9 31.8 BP 117/82 H 141/83 H Intake Visit Reasons: IUD removal/ nuva ring Ocular Care Aide Required: No Is patient in pain?: No Allergies amoxicillin Adverse Reaction (Severe, Verified 06/24/24 15:26) loose stools Medications ???Medication ???Instructions ???Recorded ???Confirmed ???Type etonogestrel 0.12 mg-ethinyl 1 vag ring vaginal Q4W #3 ea 06/2406/24/24 Rx estradiol 0.015 mg/24 hr vaginal ring (NuvaRing) Post menopausal: No Patient : No : No Control Method: ena- 2022 [facility] Medical History Congestion of nasal [...] Cosigner Signature: Date (if applicable) CC: Normal [facility] Chlamydia/GC RYAN aptimaon CHLAMY,NUC ACID Negative Normal Negative [facility] Comment on above: Performed By: #### L 7000.1800 ####[facility] [address] [place], [place], [address] GC BY NUC ACID Negative Normal Negative [facility] Comment on above: Result Comment: Perf ormed at: =G - [facility] [address], [place] [id number] Solar Sales: Pinky Vazquez MD, Phone: [phone] Performed By: #### L 7000.1800 ####[facility] [address] [place], [place], [id number] Manager Infusion Office Visit Reporton 06-06-2024 Manager Infusion Office Visit Report [facility] [address], [address] [place] [address] OFFICE VISIT Date of Service: 06/06/24 MR#: [id number] Acct: [id number] Name: LETY ALVES Rep #: [id number] : 2005 Provider: ZELALEM godinez Age/Sex: 18/F [place] [facility] [place]: Signed Intake Vital Signs 04/21/24 09:05 [...] Visit Reasons: IUD periodic pain and bleeding Ocular Care Aide Required: No Is patient in pain?: No [...] : No : No Control Method: 2022 [facility] Medical History Congestion of nasal [...] Cosigner Signature: Date (if applicable) CC: Normal [facility] Orthopedic Visit Reporton Orthopedic Visit Report [facility] [address] [place] [address] OFFICE VISIT Date of Service: 05/22/24 MR#: [id number] Acct: [id number] Name: LEONALETY JORDI Rep #: [id number] : 2005 Provider: ANY Sofia Age/Sex: 18/F Location[place] [facility] Status: Signed Intake Vital Signs 04/21/24 09:05 [...] decisions made by me, ANY Sofia 05/22/24 2431. Part of today???s visit was documented by [...] makes the pain worse. 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 Normal [facility] Culture, Throaton 04-23-2024 CUT Normal throat tali isolated. No beta-hemolytic streptococcus isolated. Normal [facility] Comment on above: Performed By: #### M 100.1000 ####[facility] [address] [place], [address] Office Visit Reporton 2024 Office Visit Report [facility] [address] [place] [address] OFFICE VISIT Date of Service: 04/21/24 MR#: [id number] Acct: [id number] Patient: LETY ALVES Rep #: [id number] : 2005 Provider: ANY Tate Age/Sex: 18/F Location: [facility] Status: Signed Intake Vital Signs 04/16/24 [...] psychiatrist due to disatisfaction with care. Recommended [facility] for alternative provider if she is looking to change practices. Orders: Orders POC FLU A B Today R68.89 - Other general symptoms and signs 04/21/24 0958 Date (more content not included)... Normal [facility] MR/BMS.BPon 04-16-2024 MR/BMS.BP [facility] [facility], [address] [place] [address] OFFICE VISIT Date of Service: 04/16/24 MR#: [id number] Acct: [id number] Name: LETY ALVES Rep #: [id number] : 2005 Provider: SHARON mina Age/Sex: 18/F Location[place] [facility] Status: Signed Intake Vital Signs 01/22/24 13:37 [...] urgency; Denie (more content not included)... Normal [facility] Urine Cultureon 02-29-2024 URC Mixed Gram Positive Organisms [place] Count 50,000-80,000 MIXC Mixed contaminants. Submit a new specimen if indicated. Normal [facility] Comment on above: Performed By: #### M 100.2200 #### [facility] [address] [place], [place], [id number] Chest PA and Lateralon 02-26 Chest PA and Lateral [facility] Imaging Services [address] [place] [address] Chest PA and Lateral MR#: [id number] Acct: [id number] Name: LETY ALVES Rep #: [id number] : 2005 F 18 From: Girish courtney MD PCP: Wm Bedolla [facility] SQL DATA ANALYST-C Status: REG ER Study: Chest PA and Lateral Date of Exam: 02/27/24 Exam# [id number] Ordering Dr: Dylan Coronado DO [id number] STUDY: X-RAY CHEST REASON FOR EXAM: Female, [...] , CC: Dr. Dylan Coronado DO; Wm [facility] SQL DATA ANALYST-C Graeem Associate Theatre Professor: Signed Normal [facility] Emergency Department Summary on 02-27-2024 Emergency Department Summary [facility] Medical Records Department [address] [place] [address] Emergency Department Summary 02/27/24 MR#: [id number] Acct: [id number] Name: LETY ALVES Rep #: [id number] : 2005 18 From: Dylan Coronado DO PCP: Wm Bedolla SQL DATA ANALYST-C Status:REG ER Location: ED HPI History of [...] recent travel history denies any tobacco use. [facility] Medical History Congestion of nasal [...] following commands knew that she was at [facility] year is 2024 Skin: Warm, dry, intact no rashes or lesions noted Const Vital Signs: 02/27/24 13:08 02/27/24 13:22 02/27/24 15:08 Temperature 96.9 F L Temperature Source T (more content not included)... Normal [facility] M100.678on 02-27-2024 M100.678 Copy of report sent to Infection Control Printer [id number] 02/27/24 1502 GLENIS. FLUABV+SARS-CoV-2+RS V Pnl Resp RYAN+probe RESULTS CALLED TO RUBEN Purdy 02/27/24 1503 Maida Holden. REPORT READ BACK BY . FLUABV+SARS-CoV-2+RS V Pnl Resp RYAN+probe FLUABV+SARS-CoV-2+RS V Pnl Resp RYAN+probe SARS-CoV-2 (COVID 19) Negative INFLUENZA A A Positive A INFLUENZA B Negative RSV PCR Negative INFLUENZAE A [facility] Comment on above: Performed By: #### L 400.0001, M100.678, L400.7600 ####[facility] [address] [facility] [place], [place], [id number] ,Urineon 02-27-2024 Beta HCG ( test) Ql (U) Negative [facility] Comment on above: Order Comment: CLEAN CATCH Result Comment: Very dilute urine specimens, as indicated by a low specific gravity, may not contain labor service representative levels of hCG. If is still suspected, a first morning urine specimen should be collected 48 hours later and tested. Performed By: #### L 400.0001, M100.678, L400.7600 ####[facility] [address] [place], [place], [id number] Urinalysis, Completeon 02-26 AMORPHOUS 1+ Normal [facility] Comment on above: Order Comment: CLEAN CATCH Performed By: #### L 400.0001, M100.678, L400.7600 #### [facility] [address] [place], [address] BACTERIA 3+ /hpf Normal None Seen [facility] Comment on above: Order Comment: CLEAN CATCH Performed By: #### L 400.0001, M100.678, L400.7600 #### [facility] [address] [place], [address] EPI,SQUAMOUS 5-10 SEEN Normal 5-10 [facility] Comment on above: Order Comment: CLEAN CATCH Performed By: #### L 400.0001, M100.678, L400.7600 #### [facility] [address] [place], [address] RBC 0-5 SEEN Normal 0-5 [facility] Comment on above: Order Comment: CLEAN CATCH Performed By: #### L 400.0001, M100.678, L400.7600 #### [facility] [address] [place], [address] WBC 5-10 SEEN Normal 0-5 [facility] Comment on above: Order Comment: CLEAN CATCH Performed By: #### L 400.0001, M100.678, L400.7600 #### [facility] [address] [place], [address] Mucus Ql (Urine sed) 0 SEEN Normal [facility] Comment on above: Order Comment: CLEAN CATCH Performed By: #### L 400.0001, M100.678, L400.7600 #### [facility] [address] [place], [address] Office Visit Reporton 2024 Office Visit Report [facility] [address] [place] [address] OFFICE VISIT Date of Service: 02/26/24 MR#: [id number] Acct: [id number] Patient: LETY ALVES Rep #: [id number] : 2005 Provider: ANY Tate Age/Sex: 18/F Location: [facility] Status: Signed Intake Vital Signs 01/22/24 [...] HPI HPI Chief Complaint: cough, fever Details: LTEY ALVES, is a 18 F who presents [...] rhythm Heart Sounds: no murmurs Results POC HCAITANYA CoV-2 PCR POC CHAITANYA CoV-2 PCR Not [...] tamiflu. S (more content not included)... Normal [facility] MR/BMS.BPon 01-22-2024 MR/BMS.BP [facility] [address], [address] [place] [address] OFFICE VISIT Date of Service: 01/22/24 MR#: [id number] Acct: [id number] Name: LETY ALVES Rep #: [id number] : 2005 Provider: SHARON mina Age/Sex: 18/F [place] [facility] Status: Signed Intake Vital Signs 12/04/23 10:27 [...] sleepiness), hopel (more content not included)... Normal [facility] Urgent Care Visit Reporton 1 03-12-2023 Urgent Care Visit Report [facility] [address], [address] [place] [id number] OFFICE VISIT Date of Service: 01/11/24 MR#: [id number] Acct: [id number] Name: LETY ALVES Rep #: [id number] : 2005 Provider: ANY Lopez Age/Sex: 18/F Location[place] [facility] Status: Signed Intake Vital Signs 12/04/23 10:27 [...] Reasons: BA/N/V/D/DIZZINESS Chief Complaint: BA, n/v/d, dizzy Ocular Care Aide Required: No Is patient in pain?: No [...] to discuss meds, denies current suicidal/homicidal ideations. [facility] Medical History Congestion of nasal [...] Exam Const General: cooperative and healthy appearing [facility] Head: normocephalic and atraumatic Ears: hearing grossly [...] viral communicable (more content not included)... Normal [facility] Orthopedic Visit Reporton Orthopedic Visit Report [facility] [address] [place] [address] OFFICE VISIT Date of Service: 12/27/23 MR#: [id number] Acct: [id number] Name: LETY ALVESDOMINIC Rep #: [id number] : 2005 Provider: Dr. Hu Mack MD Age/Sex: 18/F [place] [facility] Status: Signed Intake Vital Signs 12/04/23 10:27 [...] follow up (more content not included)... Normal [facility] Absolute lymphocyte countOrd ered By: Yuko Jackson on 06-05-2023 Lymphocytes Auto (Unsp spec) [#/Vol] 1.63 10*3/uL 0.83-4.51 [facility] Automated lymphocyte count a s percentage of total leukocytesOrdered By: Yuko Jackson on 06-05-2023 Lymphocytes/100 WBC Auto (Unsp spec) 27.2 % 19-41 [facility] Basophil percentageOrdered B y: Yuko Jackson on 06-05-2023 Basophils/100 WBC (Bld) 0.5 % 0-1 [facility] Bilirubin [Mass/Vol] 0.40 mg/dL 0.20-1.00 [facility] Comment on above: For patients on eltr ombopag therapy, use of Dimension [place] TBIL is not recommended. Chloride [Moles/Vol] 108 mmol/L 98-107 [facility] Cholesterol [Mass/Vol] 134 mg/dL <200 [facility] Comment on above: <200 mg/dL Desirable 200-240 mg/dL Borderline >240 mg/dL High Risk Eosinophils/100 WBC (Bld) 3.5 % 0-5 [facility] Glucose [Mass/Vol] 93 mg/dL 74-106 [facility] Hemoglobin (Bld) [Mass/Vol] 13.6 g/dL 12.0-15.0 [facility] Monocytes/100 WBC (Bld) 8.3 % 0-10 [facility] Neutrophils (Bld) [#/Vol] 3.6 10*3/uL 2.0-7.7 [facility] Neutrophils/100 WBC (Bld) 60.2 % 47-70 [facility] Potassium [Moles/Vol] 4.4 mmol/L 3.5-5.1 [facility] Protein [Mass/Vol] 7.3 g/dL 6.4-8.2 [facility] Sodium [Moles/Vol] 137 mmol/L 136-145 [facility] Triglyceride [Mass/Vol] 137 mg/dL <199 [facility] Comment on above: The drugs N-Acetylcy steine and Metamizole may falsely depress this assay.Serum Triglycerides Reference Interval Normal <150 mg/dL Borderline high 150 - 199 mg/dL High 200 - 499 mg/dL Very High > or = 500 mg/dL WBC (Bld) [#/Vol] 6.0 10*3/uL 4.4-11.0 [facility] Determination of erythrocyte mean corpuscular volume (MCV)Ordered By: Yuko Jackson on 06-05-2023 MCV (RBC) [Entitic vol] 93.7 fL 81-99 [facility] Erythrocyte distribution wid th ratioOrdered By: Yuko Jackson on 06-05-2023 Erythrocyte distribution width (RBC) [Ratio] 11.9 % 11.6-14.6 [facility] Erythrocyte distribution wid th standard deviationOrdered By: Yuko Jackson on 06-05-2023 Erythrocyte distribution width (RBC) [Entitic vol] 40.7 fL 35.1-43.9 [facility] Hematocrit Auto (Bld) [Volum e fraction]Ordered By: Yuko Jackson on 06-05-2023 Hematocrit (Bld) [Volume fraction] 40.1 % 37-47 [facility] Immature granulocytes/100 WB C Auto (Bld)Ordered By: Yuko Jackson on 06-05-2023 Immature granulocytes/100 WBC (Bld) 0.300 % 0.0-0.9 [facility] Comment on above: IG% - Immature Granu locytes (promyelocytes, myelocytes and metamyelocytes) > 1% indicates that a LEFT SHIFT is Present. Iron measurement (mass/mass) Ordered By: Yuko Jackson on 06-05-2023 Iron (Unsp spec) [Mass/Mass] 94 ug/dL 50-170 [facility] Laboratory - Chemistry and C hemistry - challengeOrdered By: Yuko Jackson on 06-05-2023 Albumin/Globulin [Mass ratio] 1.1 {ratio} 0.9-2.4 [facility] ALP [Catalytic activity/Vol] 72 U/L 45-117 [facility] ALT [Catalytic activity/Vol] 31 U/L 13-56 [facility] Cholesterol in HDL [Mass/Vol] 36 mg/dL >40 [facility] Comment on above: The drugs N-Acetylcy steine and Metamizole may falsely depress this assay. Reference Range HDL <40 mg/dL Low HDL Cholesterol HDL >or= 60 mg/dL High HDL Cholesterol Cholesterol in LDL [Mass/Vol] 71 mg/dL 0-130 [facility] CO2 [Moles/Vol] 25.0 mmol/L 21.0-32.0 [facility] Ferritin [Mass/Vol] 41 ng/mL 8-252 [facility] Globulin (S) [Mass/Vol] 3.5 g/dL 2.2-4.2 [facility] Magnesium [Mass/Vol] 2.0 mg/dL 1.6-2.6 [facility] Urea nitrogen/Creatinine [Mass ratio] 11.9 mg/mg 10-20 [facility] - Hematology and Cell countsOrdered By: Yuko Jackson on 06-05-2023 MCH (RBC) [Entitic mass] 31.8 pg 27.0-32.0 [facility] MCHC (RBC) [Mass/Vol] 33.9 g/dL 32-36 [facility] Nucleated RBC/100 WBC (Bld) [Ratio] 0 % 0-5 [facility] Platelet mean volume (Bld) [Entitic vol] 10.1 fL 6.2-12.0 [facility] Platelets (Bld) [#/Vol] 290 10*3/uL 150-450 [facility] No Panel InformationOrdered By: Yuko Jackson on 06-05-2023 Estimated GFR (MDRD) Amer 126 mL/min >60 [facility] Comment on above: GFR Calc Estimated GFR (MDRD) Non-Af Amer 104 mL/min >60 [facility] Comment on above: Non- GFR Calc Total Iron Binding Capacity 351 ug/dL 250-450 [facility] VLDL Cholesterol 27 mg/dL 5-40 [facility] RBC Auto (Bld) [#/Vol]Ordere d By: Yuko Jackson on 06-05-2023 RBC (Bld) [#/Vol] 4.28 10*6/uL 4.2-5.4 [facility] Serum or plasma calcium xenia urement (mass/volume)Ordered By: Yuko Jackson on 06-05-2023 Calcium [Mass/Vol] 8.8 mg/dL 8.5-10.1 [facility] Serum or plasma creatinine m easurement (mass/volume)Ordered By: Yuko Jackson on 06-05-2023 Creatinine [Mass/Vol] 0.76 mg/dL 0.55-1.02 [facility] Comment on above: The validity of the calculated GFR & GFRAA in patients over 70 years has not been determined. Clinical correlation is essential. Serum or plasma thyroid stim ulating hormone (TSH) measurement (units/volume)Ordered By: Yuko Jackson on 06-05-2023 TSH Qn 2.00 uIU/mL 0.358-3.74 [facility] Serum or plasma urea nitroge n measurement (mass/volume)Ordered By: Yuko Jackson on 06-05-2023 Urea nitrogen [Mass/Vol] 9 mg/dL 7-18 [facility] Thin prep Papanicolaou smear with manual screeningOrdered By: Yuko Jackson on 06-05-2023 Thin prep Papanicolaou smear with manual screening 3.8 g/dL 3.2-5.0 [facility] Thin prep Papanicolaou smear with manual screening 18 U/L 15-37 [facility] Thin prep Papanicolaou smear with manual screening 4 5-15 [facility] Thin prep Papanicolaou smear with manual screening 0.99 ng/dL 0.76-1.46 [facility] Laboratory - Chemistry and C hemistry - challengeon 04-26-2023 HCG ( test) Ql (U) Negative [facility] Bilirubin Ql (U) Negative [facility] Glucose Ql (U) Negative [facility] Ketones Ql (U) Negative [facility] Specific gravity (U) [Rel density] 1.025 [facility] Urobilinogen (U) [Mass/Vol] Negative [facility] Laboratory - Hematology and Cell countson 04-26-2023 Hemoglobin Ql (U) Negative [facility] Laboratory - Specimen inform ationon 04-26-2023 Clarity (U) Clear [facility] Color (U) Yellow [facility] Laboratory - Urinalysison Nitrite Ql (U) Negative [facility] Protein Ql (U) Negative [facility] No Panel Informationon 04-25 Urine Leukocytes Negatve [facility] Urine Non-Hemolyzed Blood Negative [facility] Culture, urineOrdered By: Sunni Ramírez on 03-21-2023 Bacteria identified Cx Nom (U) Staphylococcus saprophyticus [facility] Bacteria identified Cx Nom (U) Staphylococcus saprophyticus [facility] Laboratory - Chemistry and C hemistry - challengeon 03-21-2023 Bilirubin Ql (U) Small (1+) [facility] Glucose Ql (U) Negative [facility] HCG ( test) Ql (U) Negative [facility] Ketones Ql (U) Negative [facility] Specific gravity (U) [Rel density] 1.020 [facility] Urobilinogen (U) [Mass/Vol] Negative [facility] Laboratory - Hematology and Cell countson 03-21-2023 Hemoglobin Ql (U) Negative [facility] Laboratory - Microbiology an d Antimicrobial susceptibilityon 03-21-2023 SARS-CoV-2 (COVID-19) RNA RYAN+probe Ql (Unsp spec) Not detected [facility] Laboratory - Specimen inform ationon 03-21-2023 Clarity (U) Cloudy [facility] Color (U) YELLOW [facility] Laboratory - Urinalysison Nitrite Ql (U) Negative [facility] Protein Ql (U) Negative [facility] No Panel Informationon 03-21 Influenza Types A,B Rapid (Clinic) Negative [facility] Urine Leukocytes Negatve [facility] Urine Non-Hemolyzed Blood Negative [facility] Throat specimen bacteria harsha ntification by cultureOrdered By: Filipe Ramírez on 03-21-2023 Bacteria identified Cx Nom (Throat) streptococcus isolated. [facility] Bacteria identified Cx Nom (Throat) streptococcus isolated. [facility] No Panel Informationon 02-08 POC SARS CoV-2 Antigen Negative [facility] Bacteria Wnd Culton 11-28-19 23 [...] , Intermediate >4 , Resistant >8 Abnormal [facility] Comment on above: Performed By: #### 6 [id number] #### [facility] CLIA [id number] [address] [place] [address] [place] CNOVon 11-27-2022 CNOV Office Visit (WSTR) LETY ALVES ([id number]) 1 F Date Time Provider Department 11/27/22 6:30 PM THEO MILES [facility] During your visit today, we recorded the following information about you: Temperature Pulse Respiration Blood pressure 98.4 degrees 106/minute 16/minute 124/60 Weight 69.9 kg Theo Miles, TONGUE STITCHER.CLINICAL LAW PROFESSOR 11/27/2022 7:08 PM Signed Subjective HPI Nontoxic-appearing [...] of care. This note was generated using ZeroMail software. It may contain errors in wording, punctuation, or spelling. Theo Miles APRN.CNP Allergies As of Date: 11/27/2022 Noted Allergy Reaction CHEESE 2015 4 - Hives Comments: Powder santhosh (more content not included)... Normal [facility] Throat specimen bacteria harsha ntification by cultureOrdered By: Mihir Contreras on 09-23-2022 Bacteria identified Cx Nom (Throat) [facility] CNOVon 06-25-2022 CNOV Office Visit (UCWSTR) LETY ALVES ([id number]) 1 F Date Time Provider Department 06/25/22 1:00 PM DARIA CUNHA [facility] During your visit today, we recorded the [...] Date Reviewed: 06/25/2022 Reviewed by: Daria Cunha APRN.CLINICAL LAW PROFESSOR - Fully Assessed Reason for Visit: Sore Throat [200] Primary Visit Diagnosis:Sore throat [J02.9] Order(s):STREP A MOLECULAR (POC) [8125471] Order #: [id number]. #:[id number] predniSONE (DELTASONE) 10 mg tabletTake 4 tabs [...] with fo (more content not included)... Normal [facility] STREP A MOLECULAR (POC)on Procedural Control Valid [facility] Strep A (POCT) Negative Negative [facility] Basophil percentageOrdered B y: Laura Espana on 03-01-2022 C. trachomatis DNA RYAN+probe Ql (Unsp spec) Negative Negative [facility] Neisseria gonorrhoeae detect ion by PCROrdered By: Laura Espana on 03-01-2022 N. gonorrhoeae DNA RYAN+probe Ql (Cervical mucus) Negative Negative [facility] Clostridium difficile detect ion by polymerase chain reactionOrdered By: Filipe Ramírez on 01-10-2022 C. difficile DNA RYAN+probe Ql (Unsp spec) [facility] EP PanelOrdered By: Filipe liu on 01-10-2022 Gastrointestinal pathogens panel RYAN+probe (Stl) [facility] Stool Clostridium difficile detectionOrdered By: Filipe Ramírez on 01-10-2022 C. difficile Ql (Stl) [facility] - Microbiology an d Antimicrobial susceptibilityOrdered By: Filipe Ramírez on 01-03-2022 Respiratory pathogens DNA and RNA 12b panel RYAN+probe (Unsp spec) [facility] No Panel Informationon 01-03 Influenza Types A,B Rapid (Clinic) Negative [facility] POC SARS CoV-2 Antigen Negative [facility] Progress Noteon 09-13-2021 Ortho Assistant Authentication Interface Message Text Patient ID: Lety [...] CONTROL POCT Control - Valid Lot Number [id number] Normal [facility] Tryptaseon 04-05-2021 Tryptase 2.8 ng/mL Normal <11.5 [facility] Comment on above: Order Comment: Is th is order Clinic Collect?->Yes Is this specimen being sent to an external lab?->No Release to patient->Automatic 48883&Blood^\S\^Venous&Venous Is this order Clinic Collect?->Yes Is this specimen being sent to an external lab?->No 79924&Blood^\S\^Venous&Venous Result Comment: Test Performed by: [place] [address] [employer]: Ellis Velasco M.D. Ph.D.; CLIA# [id number] Performed By: #### T RYPT #### [place] [address] NESS Ab w/Reflexon 04-04-2021 NESS Ab Screen Negative Normal [facility] Comment on above: Order Comment: Is th is order Clinic Collect?->Yes Is this specimen being sent to an external lab?->No Release to patient->Automatic 63970&Blood^\S\^Venous&Venous Is this order Clinic Collect?->Yes Is this specimen being sent to an external lab?->No 74408&Blood^\S\^Venous&Venous Result Comment: REFE RENCE RANGE: <1:40 Negative > or = 1:40 Positive If NESS Ab Screen is positive, see NESS Titer and Pattern for titer results. - TEST METHOD: Indirect fluorescent antibody technique for qualitative and semi-quantitative detection of circulating antinuclear antibodies in human sera using HEp-2000 cells. Performed By: #### A NAPR #### [place] [address] Comp Metabolic Panelon 04-01 Albumin [Mass/Vol] 4.6 g/dL High 3.2-4.5 [facility] Comment on above: Order Comment: Is th is order Clinic Collect?->Yes Is this specimen being sent to an external lab?->No Release to patient->Automatic 28703&Blood^\S\^Venous&Venous Is this order Clinic Collect?->Yes Is this specimen being sent to an external lab?->No 95085&Blood^\S\^Venous&Venous Performed By: #### C MP #### [place] [address] ALP [Catalytic activity/Vol] 41 U/L Low 43-83 [facility] Comment on above: Order Comment: Is th is order Clinic Collect?->Yes Is this specimen being sent to an external lab?->No Release to patient->Automatic 61224&Blood^\S\^Venous&Venous Is this order Clinic Collect?->Yes Is this specimen being sent to an external lab?->No 43474&Blood^\S\^Venous&Venous Performed By: #### C MP #### [place] [address] ALT [Catalytic activity/Vol] 10 U/L Normal 0-34 [facility] Comment on above: Order Comment: Is th is order Clinic Collect?->Yes Is this specimen being sent to an external lab?->No Release to patient->Automatic 85627&Blood^\S\^Venous&Venous Is this order Clinic Collect?->Yes Is this specimen being sent to an external lab?->No 27842&Blood^\S\^Venous&Venous Performed By: #### C MP #### [place] [address] AST [Catalytic activity/Vol] 14 U/L Normal 0-31 [facility] Comment on above: Order Comment: Is th is order Clinic Collect?->Yes Is this specimen being sent to an external lab?->No Release to patient->Automatic 72303&Blood^\S\^Venous&Venous Is this order Clinic Collect?->Yes Is this specimen being sent to an external lab?->No 51588&Blood^\S\^Venous&Venous Performed By: #### C MP #### [place] [address] Bili,Total 0.3 mg/dL Normal 0.0-1.0 [facility] Comment on above: Order Comment: Is th is order Clinic Collect?->Yes Is this specimen being sent to an external lab?->No Release to patient->Automatic 81617&Blood^\S\^Venous&Venous Is this order Clinic Collect?->Yes Is this specimen being sent to an external lab?->No 01182&Blood^\S\^Venous&Venous Result Comment: Emilio ature : 1 Day 1.0-6.0 mg/dL 2 Days 6.0-8.0 mg/dL 3-5 Days 10.0-15.0 mg/dL Performed By: #### C MP #### [place] [address] Calcium [Mass/Vol] 9.6 mg/dL Normal 7.6-11.0 [facility] Comment on above: Order Comment: Is th is order Clinic Collect?->Yes Is this specimen being sent to an external lab?->No Release to patient->Automatic 78118&Blood^\S\^Venous&Venous Is this order Clinic Collect?->Yes Is this specimen being sent to an external lab?->No 83029&Blood^\S\^Venous&Venous Performed By: #### C MP #### [place] [id number] CO2 [Moles/Vol] 24.9 mmol/L Normal 22.0-29.0 [facility] Comment on above: Order Comment: Is th is order Clinic Collect?->Yes Is this specimen being sent to an external lab?->No Release to patient->Automatic 15258&Blood^\S\^Venous&Venous Is this order Clinic Collect?->Yes Is this specimen being sent to an external lab?->No 87372&Blood^\S\^Venous&Venous Performed By: #### C MP #### [place] [address] Creatinine [Mass/Vol] 0.68 mg/dL Normal 0.50-1.00 [facility] Comment on above: Order Comment: Is th is order Clinic Collect?->Yes Is this specimen being sent to an external lab?->No Release to patient->Automatic 64398&Blood^\S\^Venous&Venous Is this order Clinic Collect?->Yes Is this specimen being sent to an external lab?->No 11604&Blood^\S\^Venous&Venous Performed By: #### C MP #### [place] [address] Glucose [Mass/Vol] 93 mg/dL Normal 70-99 [facility] Comment on above: Order Comment: Is th is order Clinic Collect?->Yes Is this specimen being sent to an external lab?->No Release to patient->Automatic 06286&Blood^\S\^Venous&Venous Is this order Clinic Collect?->Yes Is this specimen being sent to an external lab?->No 13518&Blood^\S\^Venous&Venous Result Comment: Crit silvana for Diagnosis of Diabetes: Fasting Specimen (no caloric intake for at least 8 hours): <100 mg/dL Normal 100-125 mg/dL Increased risk for Diabetes >125 mg/dL Diagnostic for Diabetes Random Glucose (any time of day without regard to last meal): > or = 200 mg/dL plus Classic Symptoms of Diabetes Performed By: #### C MP #### [place] [address] Protein [Mass/Vol] 7.2 g/dL Normal 6.0-8.0 [facility] Comment on above: Order Comment: Is th is order Clinic Collect?->Yes Is this specimen being sent to an external lab?->No Release to patient->Automatic 31676&Blood^\S\^Venous&Venous Is this order Clinic Collect?->Yes Is this specimen being sent to an external lab?->No 93581&Blood^\S\^Venous&Venous Performed By: #### C MP #### [place] [id number] Urea nitrogen [Mass/Vol] 10 mg/dL Normal 4-19 [facility] Comment on above: Order Comment: Is th is order Clinic Collect?->Yes Is this specimen being sent to an external lab?->No Release to patient->Automatic 40787&Blood^\S\^Venous&Venous Is this order Clinic Collect?->Yes Is this specimen being sent to an external lab?->No 36489&Blood^\S\^Venous&Venous Performed By: #### C MP #### [place] [address] Chloride [Moles/Vol] 103 mmol/L Normal 96-108 [facility] Comment on above: Order Comment: Is th is order Clinic Collect?->Yes Is this specimen being sent to an external lab?->No Release to patient->Automatic 13868&Blood^\S\^Venous&Venous Is this order Clinic Collect?->Yes Is this specimen being sent to an external lab?->No 06279&Blood^\S\^Venous&Venous Performed By: #### C MP #### [address] [id number] Potassium [Moles/Vol] 5.1 mmol/L Normal 3.3-5.1 [facility] Comment on above: Order Comment: Is th is order Clinic Collect?->Yes Is this specimen being sent to an external lab?->No Release to patient->Automatic 92061&Blood^\S\^Venous&Venous Is this order Clinic Collect?->Yes Is this specimen being sent to an external lab?->No 08946&Blood^\S\^Venous&Venous Performed By: #### C MP #### [place] [address] Sodium [Moles/Vol] 139 mmol/L Normal 133-145 [facility] Comment on above: Order Comment: Is th is order Clinic Collect?->Yes Is this specimen being sent to an external lab?->No Release to patient->Automatic 13578&Blood^\S\^Venous&Venous Is this order Clinic Collect?->Yes Is this specimen being sent to an external lab?->No 78743&Blood^\S\^Venous&Venous Performed By: #### C MP #### [place] [address] Complete Blood Count 04-01 Differential Complete Automated Normal [facility] Comment on above: Order Comment: Is th is order Clinic Collect?->Yes Is this specimen being sent to an external lab?->No Release to patient->Automatic 33512&Blood^\S\^Venous&Venous Is this order Clinic Collect?->Yes Is this specimen being sent to an external lab?->No 14008&Blood^\S\^Venous&Venous Performed By: #### C BC #### [place] [address] Basophils/100 WBC (Bld) 0.40 % Normal 0.00-1.00 [facility] Comment on above: Order Comment: Is th is order Clinic Collect?->Yes Is this specimen being sent to an external lab?->No Release to patient->Automatic 70707&Blood^\S\^Venous&Venous Is this order Clinic Collect?->Yes Is this specimen being sent to an external lab?->No 61556&Blood^\S\^Venous&Venous Performed By: #### C BC #### [place] [address] Eosinophils/100 WBC (Bld) 2.00 % Normal 0.00-3.00 [facility] Comment on above: Order Comment: Is th is order Clinic Collect?->Yes Is this specimen being sent to an external lab?->No Release to patient->Automatic 59820&Blood^\S\^Venous&Venous Is this order Clinic Collect?->Yes Is this specimen being sent to an external lab?->No 65933&Blood^\S\^Venous&Venous Performed By: #### C BC #### [place] [address] Erythrocyte distribution width (RBC) [Ratio] 11.5 % Normal 0.0-14.4 [facility] Comment on above: Order Comment: Is th is order Clinic Collect?->Yes Is this specimen being sent to an external lab?->No Release to patient->Automatic 18399&Blood^\S\^Venous&Venous Is this order Clinic Collect?->Yes Is this specimen being sent to an external lab?->No 31767&Blood^\S\^Venous&Venous Performed By: #### C BC #### [place] [address] Hematocrit (Bld) [Volume fraction] 39.5 % Normal 37.0-46.0 [facility] Comment on above: Order Comment: Is th is order Clinic Collect?->Yes Is this specimen being sent to an external lab?->No Release to patient->Automatic 78276&Blood^\S\^Venous&Venous Is this order Clinic Collect?->Yes Is this specimen being sent to an external [place]?->[place] 48190&Blood^\S\^Venous&Venous Performed By: #### C BC #### [place] [address] Hemoglobin (Bld) [Mass/Vol] 13.7 g/dL Normal 12.0-15.0 [facility] Comment on above: Order Comment: Is th is order Clinic Collect?->Yes Is this specimen being sent to an external lab?->No Release to patient->Automatic 18786&Blood^\S\^Venous&Venous Is this order Clinic Collect?->Yes Is this specimen being sent to an external lab?->No 73372&Blood^\S\^Venous&Venous Performed By: #### C BC #### [address] [address] Immature granulocytes/100 WBC (Bld) 0.20 % Normal [facility] Comment on above: Order Comment: Is th is order Clinic Collect?->Yes Is this specimen being sent to an external lab?->No Release to patient->Automatic 15791&Blood^\S\^Venous&Venous Is this order Clinic Collect?->Yes Is this specimen being sent to an external lab?->No 81244&Blood^\S\^Venous&Venous Result Comment: Gaviota ture Granulocyte Percent includes promyelocytes, myelocytes, and metamyelocytes. IG% > 1.0 indicates a left shift is present. With automated differentials, bands are included in the neutrophil count and not in the Immature Granulocyte Percent. Performed By: #### C BC #### [address] [address] Lymphocytes/100 WBC (Bld) 33.3 % Normal 25.0-45.0 [facility] Comment on above: Order Comment: Is th is order Clinic Collect?->Yes Is this specimen being sent to an external lab?->No Release to patient->Automatic 72433&Blood^\S\^Venous&Venous Is this order Clinic Collect?->Yes Is this specimen being sent to an external lab?->No 52995&Blood^\S\^Venous&Venous Performed By: #### C BC #### [address] [address] MCH (RBC) [Entitic mass] 31.5 pg Normal 25.0-35.0 [facility] Comment on above: Order Comment: Is th is order Clinic Collect?->Yes Is this specimen being sent to an external lab?->No Release to patient->Automatic 90282&Blood^\S\^Venous&Venous Is this order Clinic Collect?->Yes Is this specimen being sent to an external lab?->No 11043&Blood^\S\^Venous&Venous Performed By: #### C BC #### [place] [address] MCHC 34.7 % Normal 31.0-37.0 [facility] Comment on above: Order Comment: Is th is order Clinic Collect?->Yes Is this specimen being sent to an external lab?->No Release to patient->Automatic 49182&Blood^\S\^Venous&Venous Is this order Clinic Collect?->Yes Is this specimen being sent to an external lab?->No 92484&Blood^\S\^Venous&Venous Performed By: #### C BC #### [place] [address] MCV (RBC) [Entitic vol] 90.8 fL Normal 78.0-96.0 [facility] Comment on above: Order Comment: Is th is order Clinic Collect?->Yes Is this specimen being sent to an external lab?->No Release to patient->Automatic 06974&Blood^\S\^Venous&Venous Is this order Clinic Collect?->Yes Is this specimen being sent to an external lab?->No 62057&Blood^\S\^Venous&Venous Performed By: #### C BC #### [place] [address] Monocytes/100 WBC (Bld) 5.80 % Normal 3.00-6.00 A [facility] Comment on above: Order Comment: Is th is order Clinic Collect?->Yes Is this specimen being sent to an external lab?->No Release to patient->Automatic 18173&Blood^\S\^Venous&Venous Is this order Clinic Collect?->Yes Is this specimen being sent to an external lab?->No 92814&Blood^\S\^Venous&Venous Performed By: #### C BC #### [place] [address] Neutrophils (Bld) [#/Vol] 3.2 10*3/uL Normal 1.8-7.5 [facility] Comment on above: Order Comment: Is th is order Clinic Collect?->Yes Is this specimen being sent to an external lab?->No Release to patient->Automatic 55465&Blood^\S\^Venous&Venous Is this order Clinic Collect?->Yes Is this specimen being sent to an external lab?->No 69678&Blood^\S\^Venous&Venous Performed By: #### C BC #### [place] [address] Neutrophils/100 WBC (Bld) 58.3 % Normal 34.0-64.0 [facility] Comment on above: Order Comment: Is th is order Clinic Collect?->Yes Is this specimen being sent to an external lab?->No Release to patient->Automatic 06235&Blood^\S\^Venous&Venous Is this order Clinic Collect?->Yes Is this specimen being sent to an external lab?->No 81028&Blood^\S\^Venous&Venous Performed By: #### C BC #### [place] [address] Nucleated RBC/100 WBC (Bld) [Ratio] 0.0 % Normal -1.0-0.0 [facility] Comment on above: Order Comment: Is th is order Clinic Collect?->Yes Is this specimen being sent to an external lab?->No Release to patient->Automatic 04507&Blood^\S\^Venous&Venous Is this order Clinic Collect?->Yes Is this specimen being sent to an external lab?->No 54748&Blood^\S\^Venous&Venous Performed By: #### C BC #### [place] [address] Platelet mean volume (Bld) [Entitic vol] 9.9 fL Normal [facility] Comment on above: Order Comment: Is th is order Clinic Collect?->Yes Is this specimen being sent to an external lab?->No Release to patient->Automatic 11404&Blood^\S\^Venous&Venous Is this order Clinic Collect?->Yes Is this specimen being sent to an external lab?->No 99850&Blood^\S\^Venous&Venous Result Comment: MPV is platelet range and age dependent Performed By: #### C BC #### [address] [address] Platelets (Bld) [#/Vol] 252 10*3/uL Normal 150-450 [facility] Comment on above: Order Comment: Is th is order Clinic Collect?->Yes Is this specimen being sent to an external lab?->No Release to patient->Automatic 79564&Blood^\S\^Venous&Venous Is this order Clinic Collect?->Yes Is this specimen being sent to an external lab?->No 61752&Blood^\S\^Venous&Venous Performed By: #### C BC #### [place] [address] RBC 4.35 10E12/L Normal 4.10-4.80 [facility] Comment on above: Order Comment: Is th is order Clinic Collect?->Yes Is this specimen being sent to an external lab?->No Release to patient->Automatic 20737&Blood^\S\^Venous&Venous Is this order Clinic Collect?->Yes Is this specimen being sent to an external lab?->No 18143&Blood^\S\^Venous&Venous Performed By: #### C BC #### [address] [address] WBC (Bld) [#/Vol] 5.5 10*3/uL Normal 4.5-13.0 [facility] Comment on above: Order Comment: Is th is order Clinic Collect?->Yes Is this specimen being sent to an external lab?->No Release to patient->Automatic 92625&Blood^\S\^Venous&Venous Is this order Clinic Collect?->Yes Is this specimen being sent to an external lab?->No 82866&Blood^\S\^Venous&Venous Performed By: #### C BC #### [address] [place] [address] TSHon 04-01-2021 TSH 1.530 uIU/mL Normal 0.500-4.300 [facility] Comment on above: Order Comment: Is th is order Clinic Collect?->Yes Is this specimen being sent to an external lab?->No Release to patient->Automatic 80510&Blood^\S\^Venous&Venous Is this order Clinic Collect?->Yes Is this specimen being sent to an external lab?->No 48669&Blood^\S\^Venous&Venous Performed By: #### T #### [address] [address] Progress Noteon 03-31-2021 Ortho Assistant Authentication Interface Message Text Patient ID: Lety [...] temperature source Temporal, weight 59 kg. Normal [facility] Progress Noteon 02-15-2021 Ortho Assistant Authentication Interface Message Text Patient ID: Lety Alves is a 15 y.o. female. Her chief complaint(s) include: Urticaria (Reaction to corn starch (hives, unable to breathe), every time PT eats since initial reaction she breaks out in hives and SOB. PT takes benadryl after reactions and it helps. Referral to electric lineman.) Assessment 1. Hives Plan Lety was seen [...] temperature source Temporal, weight 57.1 kg. Normal [facility] Progress Noteon 12-09-2020 Ortho Assistant Authentication Interface Message Text Patient ID: Lety [...] patient's vision. Patient is being seen by assignment manager or commercial leasing agent. Hyperlipidemia Concerns: Negative Hyperlipidemia Screen Concerns: no parent or grandparent with [place] angina peripheral or cerebrovascular disease <55 years and no parent with cholesterol >240mg/dl Primary Care Review of Systems Objective Vital Signs 12/09/20 1114 BP: 112/63 Pulse: 90 Temp: (more content not included)... Normal [facility] [facility] XR SCOLIOSIS - [place] ONLYon [...] Reynolds MD on 03/06/2019 11:12 AM Normal [facility] XR SCOLIOSIS - [place] ONLYon XR SCOLIOSIS [...] Clinton MD on 08/08/2018 11:42 AM Normal [facility] Clostridium difficile detect ion by polymerase chain reaction C. difficile DNA RYAN+probe Ql (Unsp spec) [facility] Work Phone: EP Panel Gastrointestinal pathogens panel RYAN+probe (Stl) [facility] Work Phone: Laboratory - Microbiology an d Antimicrobial susceptibility Respiratory pathogens DNA and RNA 12b panel RYAN+probe (Unsp spec) [facility] Work Phone: No Panel Information Respiratory Panel (PCR) [facility] Work Phone: Stool Clostridium difficile detection C. difficile Ql (Stl) [facility] Work Phone: Vital Signs Date Time Vital Sign Value Performing Clinician Facility 06-05-2023 08:01-0400 Body height 154.94 cm No Primary Care Physician [facility] 06-05-2023 08:01-0400 Body mass index (BMI) [Percentile] Per age and sex 95.6 % No Primary Care Physician [facility] 06-05-2023 08:01-0400 Body mass index (BMI) [Ratio] 32.1 kg/m2 No Primary Care Physician [facility] 06-05-2023 08:01-0400 Body temperature 97.8 [degF] No Primary Care Physician [facility] 06-05-2023 08:01-0400 Body weight 77.16 kg No Primary Care Physician [facility] 06-05-2023 08:01-0400 Diastolic blood pressure 60 mm[Hg] No Primary Care Physician [facility] 06-05-2023 08:01-0400 Heart rate 97 /min No Primary Care Physician [facility] 06-05-2023 08:01-0400 Respiratory rate 16 /min No Primary Care Physician [facility] 06-05-2023 08:01-0400 SaO2% (BldA) [Mass fraction] 98 % No Primary Care Physician [facility] 06-05-2023 08:01-0400 Systolic blood pressure 114 mm[Hg] No Primary Care Physician [facility] 05-14-2023 10:59-0400 Body height 157.48 cm No Primary Care Physician [facility] 05-14-2023 10:58-0400 Body mass index (BMI) [Percentile] Per age and sex 94.4 % No Primary Care Physician [facility] 05-14-2023 10:58-0400 Body mass index (BMI) [Ratio] 30.8 kg/m2 No Primary Care Physician [facility] 05-14-2023 10:58-0400 Body weight 76.43 kg No Primary Care Physician [facility] 05-14-2023 10:58-0400 Diastolic blood pressure 78 mm[Hg] No Primary Care Physician [facility] 05-14-2023 10:58-0400 Systolic blood pressure 121 mm[Hg] No Primary Care Physician [facility] 04-26-2023 11:22-0400 Body mass index (BMI) [Percentile] Per age and sex 93.9 % No Primary Care Physician [facility] 04-26-2023 11:22-0400 Body mass index (BMI) [Ratio] 30.3 kg/m2 No Primary Care Physician [facility] 04-26-2023 11:22-0400 Body weight 75.29 kg No Primary Care Physician [facility] 04-26-2023 11:22-0400 Diastolic blood pressure 82 mm[Hg] No Primary Care Physician [facility] 04-26-2023 11:22-0400 Systolic blood pressure 119 mm[Hg] No Primary Care Physician [facility] 03-21-2023 13:16-0500 Body height 157.48 cm No Primary Care Physician [facility] 03-21-2023 13:16-0500 Body mass index (BMI) [Percentile] Per age and sex 93.1 % No Primary Care Physician [facility] 03-21-2023 13:16-0500 Body mass index (BMI) [Ratio] 29.6 kg/m2 No Primary Care Physician [facility] 03-21-2023 13:16-0500 Body temperature 98.7 [degF] No Primary Care Physician [facility] 03-21-2023 13:16-0500 Body weight 73.48 kg No Primary Care Physician [facility] 03-21-2023 13:16-0500 Diastolic blood pressure 74 mm[Hg] No Primary Care Physician [facility] 03-21-2023 13:16-0500 Heart rate 110 /min No Primary Care Physician [facility] 03-21-2023 13:16-0500 SaO2% (BldA) [Mass fraction] 96 % No Primary Care Physician [facility] 03-21-2023 13:16-0500 Systolic blood pressure 105 mm[Hg] No Primary Care Physician [facility] 02-08-2023 12:30-0500 Body mass index (BMI) [Percentile] Per age and sex 92.2 % No Primary Care Physician [facility] 02-08-2023 12:30-0500 Body mass index (BMI) [Ratio] 29 kg/m2 No Primary Care Physician [facility] 02-08-2023 12:30-0500 Body temperature 98.5 [degF] No Primary Care Physician [facility] 02-08-2023 12:30-0500 Body weight 72.17 kg No Primary Care Physician [facility] 02-08-2023 12:30-0500 Diastolic blood pressure 86 mm[Hg] No Primary Care Physician [facility] 02-08-2023 12:30-0500 Heart rate 70 /min No Primary Care Physician [facility] 02-08-2023 12:30-0500 Respiratory rate 15 /min No Primary Care Physician [facility] 02-08-2023 12:30-0500 SaO2% (BldA) [Mass fraction] 100 % No Primary Care Physician [facility] 02-08-2023 12:30-0500 Systolic blood pressure 131 mm[Hg] No Primary Care Physician [facility] 11-27-2022 18:33-0400 Body temperature 98.4 [degF] Theo Miles APRN.CLINICAL LAW PROFESSOR Work Phone: [facility] 11-27-2022 18:33-0400 Body weight 69.85 kg Theo Miles APRN.CLINICAL LAW PROFESSOR Work Phone: [facility] 11-27-2022 18:33-0400 Diastolic blood pressure 60 mm[Hg] Theo Miles APRN.CLINICAL LAW PROFESSOR Work Phone: [facility] 11-27-2022 18:33-0400 Heart rate 106 /min Theo Miles TONGUE STITCHER.CLINICAL LAW PROFESSOR Work Phone: [facility] 11-27-2022 18:33-0400 Respiratory rate 16 /min Theolizandro Miles TONGUE STITCHER.CLINICAL LAW PROFESSOR Work Phone: [facility] 11-27-2022 18:33-0400 SaO2% (BldA) [Mass fraction] 99 % Theo Miles TONGUE STITCHER.CLINICAL LAW PROFESSOR Work Phone: [facility] 11-27-2022 18:33-0400 Systolic blood pressure 124 mm[Hg] Theo Miles TONGUE STITCHER.CLINICAL LAW PROFESSOR Work Phone: [facility] 08-10-2022 08:26-0400 Body height 158.75 cm No Primary Care Physician [facility] 08-10-2022 08:18-0400 Body mass index (BMI) [Percentile] Per age and sex 76.5 % No Primary Care Physician [facility] 08-10-2022 08:18-0400 Body mass index (BMI) [Ratio] 24.3 kg/m2 No Primary Care Physician [facility] 08-10-2022 08:18-0400 Body weight 60.32 kg No Primary Care Physician [facility] 08-10-2022 08:18-0400 Diastolic blood pressure 73 mm[Hg] No Primary Care Physician [facility] 08-10-2022 08:18-0400 Systolic blood pressure 113 mm[Hg] No Primary Care Physician [facility] 06-25-2022 13:06-0400 Body temperature 98.29 [degF] Daria Cunha TONGUE STITCHER.CLINICAL LAW PROFESSOR Work Phone: [facility] 06-25-2022 13:06-0400 Body weight 56.7 kg Daria Cunha TONGUE STITCHER.CLINICAL LAW PROFESSOR Work Phone: [facility] 06-25-2022 13:06-0400 Diastolic blood pressure 80 mm[Hg] Daria Cunha TONGUE STITCHER.CLINICAL LAW PROFESSOR Work Phone: [facility] 06-25-2022 13:06-0400 Heart rate 76 /min Daria Cunha TONGUE STITCHER.CLINICAL LAW PROFESSOR Work Phone: [facility] 06-25-2022 13:06-0400 Respiratory rate 16 /min Daria Cunha JOSE.CLINICAL LAW PROFESSOR Work Phone: [facility] 06-25-2022 13:06-0400 SaO2% (BldA) [Mass fraction] 98 % Daria Cunha JOSE.CLINICAL LAW PROFESSOR Work Phone: [facility] 06-25-2022 13:06-0400 Systolic blood pressure 104 mm[Hg] Daria Cunha JOSE.CLINICAL LAW PROFESSOR Work Phone: [facility] 03-01-2022 11:21-0500 Body height 158.75 cm No Primary Care Physician [facility] 03-01-2022 11:15-0500 Body mass index (BMI) [Percentile] Per age and sex 68.6 % No Primary Care Physician [facility] 03-01-2022 11:15-0500 Body mass index (BMI) [Ratio] 23.1 kg/m2 No Primary Care Physician [facility] 03-01-2022 11:15-0500 Body weight 58.17 kg No Primary Care Physician [facility] 03-01-2022 11:15-0500 Diastolic blood pressure 72 mm[Hg] No Primary Care Physician [facility] 03-01-2022 11:15-0500 Systolic blood pressure 110 mm[Hg] No Primary Care Physician [facility] 01-09-2022 08:29-0500 Body temperature 98.5 [degF] No Primary Care Physician [facility] 01-09-2022 08:29-0500 Diastolic blood pressure 83 mm[Hg] No Primary Care Physician [facility] 01-09-2022 08:29-0500 Heart rate 86 /min No Primary Care Physician [facility] 01-09-2022 08:29-0500 Respiratory rate 16 /min No Primary Care Physician [facility] 01-09-2022 08:29-0500 SaO2% (BldA) [Mass fraction] 97 % No Primary Care Physician [facility] 01-09-2022 08:29-0500 Systolic blood pressure 119 mm[Hg] No Primary Care Physician [facility] 01-03-2022 12:10-0500 Body temperature 98.8 [degF] No Primary Care Physician [facility] 01-03-2022 12:10-0500 Diastolic blood pressure 73 mm[Hg] No Primary Care Physician [facility] 01-03-2022 12:10-0500 Heart rate 90 /min No Primary Care Physician [facility] 01-03-2022 12:10-0500 Respiratory rate 12 /min No Primary Care Physician [facility] 01-03-2022 12:10-0500 SaO2% (BldA) [Mass fraction] 98 % No Primary Care Physician [facility] 01-03-2022 12:10-0500 Systolic blood pressure 107 mm[Hg] No Primary Care Physician [facility] Encounters Encounter Date Encounter Type Care Provider Facility Start: 11-12-2024 End: 11-12-2024 ambulatory Wm Bedolla VSC Facility:[facility] Start: 11-12-2024 End: 11-12-2024 ambulatory Kaushik AGARWAL Facility:[facility] Start: 10-08-2024 End: 10-08-2024 ambulatory Filipe AGARWAL Facility:[facility] Start: 08-08-2024 End: 08-08-2024 ambulatory Angela Boogie Facility:[facility] Start: 08-05-2024 End: 08-05-2024 ambulatory Kaushik AGARWAL Facility:[facility] Start: 06-24-2024 End: 06-24-2024 ambulatory Angela Boogie Facility:[facility] Start: 06-06-2024 End: 06-06-2024 ambulatory Angela Boogie Facility:[facility] Start: 06-06-2024 End: 06-06-2024 ambulatory Angela Boogie Facility:[facility] Start: 06-04-2024 End: 06-26-2024 ambulatory NICHOLAS MIGUEL [facility] Start: 05-22-2024 End: 05-22-2024 ambulatory Nicholas Miguel Facility:[facility] Start: 04-21-2024 End: 04-21-2024 ambulatory Filipe AGARWAL Facility:[facility] Start: 04-21-2024 End: 04-21-2024 ambulatory Filipe AGARWAL Facility:[facility] Start: 04-16-2024 End: 04-16-2024 ambulatory Wm Bedolla VSC Facility:[facility] Start: 02-27-2024 End: 02-27-2024 Emergency department patient visit Dylan Coronado Facility:[facility] Start: 02-26-2024 End: 02-26-2024 ambulatory Filipecheng Ramírez ANY Facility:[facility] Start: 01-22-2024 End: 01-22-2024 ambulatory Yuko Melgaro Facility:[facility] Start: 01-11-2024 End: 01-11-2024 ambulatory Yuko Crullo Facility:[facility] Start: 12-27-2023 End: 12-27-2023 ambulatory Yukoflorencio Crullo Facility:[facility] Start: 08-31-2023 End: 08-31-2023 Emergency department patient visit ELLIS MEHTA [facility] Start: 06-05-2023 End: 06-05-2023 ambulatory No Primary Care Physician [facility] Work Phone: Start: 06-05-2023 Patient encounter status No Primary Care Physician [facility] Start: 06-05-2023 End: 06-05-2023 Encounter for general adult medical examination without abnormal findings No Primary Care Physician [facility] Start: 06-05-2023 End: 06-05-2023 Patient encounter procedure No Primary Care Physician [facility] Work Phone: Start: 05-14-2023 End: 05-14-2023 Patient encounter procedure No Primary Care Physician [facility] Work Phone: Start: 05-09-2023 End: 05-09-2023 ambulatory No Primary Care Physician [facility] Work Phone: Start: 05-09-2023 End: 05-09-2023 Patient encounter procedure No Primary Care Physician [facility] Work Phone: Start: 04-26-2023 End: 04-26-2023 Patient encounter procedure No Primary Care Physician [facility] @ Start: 03-21-2023 End: 03-21-2023 ambulatory No Primary Care Physician [facility] Work Phone: Start: 03-21-2023 End: 03-21-2023 Patient encounter procedure No Primary Care Physician [facility]-Laboratory, Specimen Work Phone: Start: 03-21-2023 End: 03-21-2023 Patient encounter procedure No Primary Care Physician [facility] Work Phone: Start: 02-08-2023 End: 02-08-2023 Patient encounter procedure No Primary Care Physician [facility] Work Phone: Start: 11-27-2022 End: 11-27-2022 ambulatory [facility] Facility:[facility] Start: 11-27-2022 End: 11-27-2022 Office outpatient visit 25 minutes Theo Miles APRN.CLINICAL LAW PROFESSOR Work Phone: [facility] Comment on above: Bullous impetigo (Pr imary Dx) Start: 09-23-2022 End: 09-23-2022 ambulatory No Primary Care Physician [facility] Work Phone: Start: 09-23-2022 End: 09-23-2022 Patient encounter procedure No Primary Care Physician [facility]Labor[facility] Spec[facility] Work Phone: Start: 08-22-2022 End: 08-22-2022 Patient encounter procedure No Primary Care Physician [facility] Work Phone: Start: 08-10-2022 End: 08-10-2022 Patient encounter procedure No Primary Care Physician [facility] @ Start: 06-26-2022 End: 06-26-2022 Patient encounter procedure No Primary Care Physician [facility] Work Phone: Start: 06-25-2022 End: 06-25-2022 ambulatory [facility] Facility:[facility] Start: 06-25-2022 End: 06-25-2022 Patient encounter procedure Daria Cunha APRN.CLINICAL LAW PROFESSOR Work Phone: [facility] Comment on above: Sore throat (Primary Dx) Start: 03-07-2022 End: 03-07-2022 ambulatory No Primary Care Physician [facility] Work Phone: Start: 03-07-2022 End: 03-07-2022 Patient encounter procedure No Primary Care Physician [facility]-Ultrasound, [facility] Start: 03-01-2022 End: 03-01-2022 ambulatory No Primary Care Physician [facility] Work Phone: Start: 03-01-2022 End: 03-01-2022 Patient encounter procedure No Primary Care Physician [facility]Laboratory, Specimen Start: 03-01-2022 End: 03-01-2022 Patient encounter procedure No Primary Care Physician [facility] Start: 01-10-2022 End: 01-10-2022 ambulatory No Primary Care Physician [facility] Work Phone: Start: 01-10-2022 End: 01-10-2022 Patient encounter procedure No Primary Care Physician [facility], Specimen Start: 01-09-2022 End: 01-09-2022 Patient encounter procedure No Primary Care Physician [facility] Start: 01-03-2022 End: 01-03-2022 ambulatory No Primary Care Physician [facility] Work Phone: Start: 01-03-2022 End: 01-03-2022 Patient encounter procedure No Primary Care Physician [facility]-Laboratory, Specimen Start: 01-03-2022 End: 01-03-2022 Patient encounter procedure No Primary Care Physician [facility] Procedures Date Procedure Procedure Detail Performing Clinician Start: 05-09-2023 Pelvic echography No Pr imary Care Physician Start: 03-21-2023 Bacteria identificat ion test No Primary Care Physician Start: 03-21-2023 Urine culture No Primar y Care Physician Start: 11-27-2022 Cul bact xcpt urine blood/stool aerobic isol Theo Miles APRN.CLINICAL LAW PROFESSOR Work Phone: Start: 09-23-2022 Bacteria identificat ion test No Primary Care Physician Start: 06-25-2022 STREP A MOLECULAR (POC) Daria Cunha APRN.CLINICAL LAW PROFESSOR Work Phone: Start: 03-07-2022 Pelvic echography No [...] Detail Author Start: 11-07-2025 Urine microalbumin profile [facility] Start: 06-05-2023 Patient referral [facility] Work Phone: Start: 10-13-2022 Influenza vaccination [facility] Start: 08-22-2022 Patient referral [facility] Work Phone: Start: 02-12-2022 DEPRESSION ASSESSMENT DEPRESSION ASSESSMENT [facility] Start: 11-07-2021 CHLAMYDIA SCREENING (18-24) CHLAMYDIA SCREENING (18-24) [facility] Start: 11-07-2021 GC (GONORRHEA) SCREENING (18-24) GC (GONORRHEA) SCREENING (18-24) [facility] Start: 11-07-2021 HEPATITIS C SCREENING HEPATITIS C SCREENING [facility] Start: 11-07-2021 HIV SCREENING HIV SCREENING [facility] Start: 2019 Meningococcal B Vaccine: Consider Based On Risk (1 of 2 - Patient Seeks Protection) Meningococcal B Vaccine: Consider Based On Risk (1 of 2 - Patient Seeks Protection) [facility] Start: 2019 MENINGOCOCCAL CONJUGATE (2 - 2-dose series) MENINGOCOCCAL CONJUGATE (2 - 2-dose series) [facility] Start: 11-07-2017 PEDS TO ADULT TRANSITION ANNUAL ASSESSMENT PEDS TO ADULT TRANSITION ANNUAL ASSESSMENT [facility] Start: 2015 PEDS TO ADULT TRANSITION INITIAL DISCUSSION PEDS TO ADULT TRANSITION INITIAL DISCUSSION [facility] Start: 11-07-2014 HPV VACCINE (1 - 2-dose series) HPV VACCINE (1 - 2-dose series) [facility] Start: 11-07-2013 MENINGOCOCCAL B: Consider based on risk (1 of 2 - Risk Bexsero 2-dose series) MENINGOCOCCAL B: Consider based on risk (1 of 2 - Risk Bexsero 2-dose series) [facility] Start: 11-07-2012 HPV Vaccine (1 - 2-dose series) HPV Vaccine (1 - 2-dose series) [facility] Start: 05-07-2004 COVID-19 VACCINE (#1) COVID-19 VACCINE (#1) [facility] Bacteria identified in Throat by Culture [facility] Bacteria identified in Wound by Culture ABSCESS AND WOUND CULTURE WITH GRAM STAIN Microbiology Routine Bullous impetigo 11/27/2022 6:53 PM EDT [facility] Work Phone: Patient referral [facility] Work Phone: Immunizations Immunization Date Immunization Notes Care Provider Fa jose 12-09-2020 influenza virus vacc ine, unspecified formulation Theo Miles TONGUE STITCHER.CLINICAL LAW PROFESSOR Work Phone: [facility] 11-13-2016 influenza, injectabl e, quadrivalent, contains preservative Daria Alphonse TONGUE STITCHER.CLINICAL LAW PROFESSOR Work Phone: [facility] 10-13-2016 Influenza virus vaccine No P rimary Care Physician [facility] 2015 influenza, injectabl e, quadrivalent, contains preservative Daria Alphonse TONGUE STITCHER.CLINICAL LAW PROFESSOR Work Phone: [facility] 2015 meningococcal polysaccharide (groups A, C, Y and W-135) diphtheria toxoid conjugate vaccine (MCV4P) Daria Alphonse TONGUE STITCHER.CLINICAL LAW PROFESSOR Work Phone: [facility] 2015 tetanus toxoid, redu grupo diphtheria toxoid, and acellular pertussis vaccine, adsorbed Daria Alphonse TONGUE STITCHER.CLINICAL LAW PROFESSOR Work Phone: [facility] 12-27-2012 influenza virus vacc ine, live, attenuated, for intranasal use Daria Alphonse TONGUE STITCHER.CLINICAL LAW PROFESSOR Work Phone: [facility] 11-17-2011 influenza virus vacc ine, live, attenuated, for intranasal use Daria Alphonse TONGUE STITCHER.CLINICAL LAW PROFESSOR Work Phone: [facility] 10-25-2010 influenza virus vacc ine, live, attenuated, for intranasal use Daria Alphonse TONGUE STITCHER.CLINICAL LAW PROFESSOR Work Phone: [facility] 11-23-2009 influenza virus vacc ine, live, attenuated, for intranasal use Daria Cunha TONGUE STITCHER.CLINICAL LAW PROFESSOR Work Phone: [facility] 05-05-2009 diphtheria, tetanus toxoids and acellular pertussis vaccine Daria Cunha TONGUE STITCHER.CLINICAL LAW PROFESSOR Work Phone: [facility] Work Phone: 05-05-2009 measles, mumps and rubella virus vaccine Daria Cunha TONGUE STITCHER.CLINICAL LAW PROFESSOR Work Phone: [facility] Work Phone: 05-05-2009 poliovirus vaccine, inactivated Daria King TONGUE STITCHER.CLINICAL LAW PROFESSOR Work Phone: [facility] Work Phone: 05-05-2009 varicella virus vaccine Marvin Cunha TONGUE STITCHER.CLINICAL LAW PROFESSOR Work Phone: [facility] Work Phone: 12-09-2008 novel influenza-H1N1 -09, all formulations Daria Cunha TONGUE STITCHER.CLINICAL LAW PROFESSOR Work Phone: [facility] Work Phone: 11-25-2008 influenza virus vacc ine, live, attenuated, for intranasal use Daria Cunha TONGUE STITCHER.CLINICAL LAW PROFESSOR Work Phone: [facility] Work Phone: 01-28-2008 influenza virus vacc ine, live, attenuated, for intranasal use Daria Cunha TONGUE STITCHER.CLINICAL LAW PROFESSOR Work Phone: [facility] 05-03-2005 diphtheria, tetanus toxoids and acellular pertussis vaccine Daria Cunha TONGUE STITCHER.CLINICAL LAW PROFESSOR Work Phone: [facility] 05-03-2005 haemophilus influenz ae type b vaccine, HbOC conjugate Daria Cunha TONGUE STITCHER.CLINICAL LAW PROFESSOR Work Phone: [facility] 05-03-2005 varicella virus vaccine Marvin Cunha TONGUE STITCHER.CLINICAL LAW PROFESSOR Work Phone: [facility] 11-28-2004 measles, mumps and rubella virus vaccine Daria Cunha TONGUE STITCHER.CLINICAL LAW PROFESSOR Work Phone: [facility] 05-09-2004 diphtheria, tetanus toxoids and acellular pertussis vaccine Daria Alphonse TONGUE STITCHER.CLINICAL LAW PROFESSOR Work Phone: [facility] 05-09-2004 haemophilus influenz ae type b vaccine, HbOC conjugate Daria Alphonse TONGUE STITCHER.CLINICAL LAW PROFESSOR Work Phone: [facility] 05-09-2004 hepatitis B vaccine, pediatric or pediatric/adolescent dosage Daria Alphonse TONGUE STITCHER.CLINICAL LAW PROFESSOR Work Phone: [facility] 05-09-2004 poliovirus vaccine, inactivated Daria Alphonse TONGUE STITCHER.CLINICAL LAW PROFESSOR Work Phone: [facility] 03-10-2004 diphtheria, tetanus toxoids and acellular pertussis vaccine Daria Alphonse TONGUE STITCHER.CLINICAL LAW PROFESSOR Work Phone: [facility] 03-10-2004 haemophilus influenz ae type b vaccine, HbOC conjugate Daria Alphonse TONGUE STITCHER.CLINICAL LAW PROFESSOR Work Phone: [facility] 03-10-2004 hepatitis B vaccine, pediatric or pediatric/adolescent dosage Daria Alphonse TONGUE STITCHER.CLINICAL LAW PROFESSOR Work Phone: [facility] 03-10-2004 poliovirus vaccine, inactivated Daria Alphonse TONGUE STITCHER.CLINICAL LAW PROFESSOR Work Phone: [facility] 01-08-2004 diphtheria, tetanus toxoids and acellular pertussis vaccine Daria Alphonse TONGUE STITCHER.CLINICAL LAW PROFESSOR Work Phone: [facility] 01-08-2004 haemophilus influenz ae type b vaccine, HbOC conjugate Daria Alphonse TONGUE STITCHER.CLINICAL LAW PROFESSOR Work Phone: [facility] 01-08-2004 hepatitis B vaccine, pediatric or pediatric/adolescent dosage Daria Alphonse TONGUE STITCHER.CLINICAL LAW PROFESSOR Work Phone: [facility] 01-08-2004 poliovirus vaccine, inactivated Daria Alphonse TONGUE STITCHER.CLINICAL LAW PROFESSOR Work Phone: [facility] 2003 hepatitis B vaccine, pediatric or pediatric/adolescent dosage Daria Alphonse TONGUE STITCHER.CLINICAL LAW PROFESSOR Work Phone: [facility] Payers Date Payer Category Payer Self-pay [id number] 2023 Unknown [id number] 2022 Unknown [id number] 2021 Unknown [id number] 2021 Unknown [id number]. 1.13.159.2.7.3.554184.315 2003 Unknown [id number] 2.16.8 40.1.736534.3.579.2.651 2003 Unknown [id number] 2.16.8 40.1.755296.3.579.2.651 Unknown [id number] Unknown [id number] 2.16.8 40.1.017652.3.579.2.462 Unknown [id number] 2.16.8 40.1.421451.3.579.2.462 Unknown [id number] 2.16.8 40.1.011016.3.579.2.462 Unknown [id number] 2.16.8 40.1.406008.3.579.2.462 Unknown [id number] 2.16.8 40.1.840324.3.579.2.462 Unknown [id number] 2.16.8 40.1.675322.3.579.2.462 Unknown [id number] 2.16.8 40.1.032065.3.579.2.462 Unknown [id number] 2.16.8 40.1.418824.3.579.2.462 Unknown [id number] 2.16.8 40.1.154895.3.579.2.462 Unknown [id number] 2.16.8 40.1.513941.3.579.2.462 Unknown [id number] 2.16.8 40.1.736322.3.579.2.462 Unknown [id number] 2.16.8 40.1.196212.3.579.2.462 Unknown [id number] 2.16.8 40.1.211599.3.579.2.462 Unknown [id number] 2.16.8 40.1.968526.3.579.2.462 Unknown [id number] 2.16.8 40.1.557216.3.579.2.462 Unknown [id number] 2.16.8 40.1.409727.3.579.2.462 Unknown [id number] 2.16.8 40.1.774553.3.579.2.462 Social History Date Type Detail Facility Start: 01-03-2022 End: 06-05-2023 Tobacco smoking status NHIS Unknown if ever smoked [facility] Start: 04-16-2018 None [facility] Start: 04-16-2018 With Family [facility] Start: 2003 Sex Assigned At Female W [facility] Start: 12-19-2013 Tobacco smoking stat us NHIS Never smoked tobacco [facility] Work Phone: Start: 12-19-2013 Tobacco use and exposure Smokeless tobacco non-user [facility] Work Phone: Start: 06-25-2022 End: 11-27-2022 Alcohol intake Current non-drinker of alcohol (finding) [facility] Start: 2003 Sex Assigned At Not on file [facility] Start: 01-19-2020 End: 11-27-2022 History of Social function [facility] Start: 01-19-2020 End: 11-27-2022 Tobacco use panel [facility] National Score (1-100), lower number is lower risk Not on file [facility] Clinical Notes 04-01-2021 to 11-27-2022 Theo Miles APRN.CLINICAL LAW PROFESSOR - 11/27/2022 6:35 PM EDTJojohnny Cunha APRN.CLINICAL LAW PROFESSOR - 06/25/2022 1:12 PM EDT Note Date & Type Note Facility 11-27-2022 Note HNO ID: [id number] Author: Theo Miles APRN.CLINICAL LAW PROFESSOR Service: ? Author Type: Nurse Practitioner Type: [...] of care. This note was generated using ZeroMail software. It may contain errors in wording, punctuation, or spelling. Theo Miles APRN.[facility] 11-27-2022 History of Present illness Narrative Images [...] of care. This note was generated using ZeroMail software. It may contain errors in wording, punctuation, or spelling. Theo Miles APRN.ARELY documented in this encounter [facility] 06-25-2022 Note HNO ID: [id number] Author: Daria Cunha APRN.ARELY Service: ? Author [...] HCL 2 % MUCOSAL SOLUTION Daria Cunha APRN.[facility] 06-25-2022 History of Present illness Narrative Subjective [...] Daria Cunha APRN.ARELY documented in this encounter [facility] 04-01-2021 Note Lety is a 15 y.o. [...] 2 sisters. Special Needs: None Preferred Language: Romanian Pets: Yes: 1 dog, not new School/Daycare: [...] CHOLANGIOGRAM performed by Gabriele Sarmiento MD at [facility] OR ESOPHAGOSCOPY N/A 09/06/2018 ENDOSCOPY (UPPER AND COLONOSCOPY) performed by Ansley Farias MD at [facility] OR [place] ANESTH,UGI ENDOSCOPY Current Outpatient Medications Medication Sig [...] in no a (more content not included)... [facility] Evaluation note Diagnosis Onset Date Acute sinusitis acute [facility] Work Phone: Evaluation note* Diagnosis Onset Date Resolution Status Acute sinusitis acute Diarrhea acute [facility] Work Phone: Evaluation note* Diagnosis Onset Date Resolution Status Dysmenorrhea acute Encounter for routine gynecological examination noneactive STD exposure noneactive [facility] Work Phone: Evaluation note* Diagnosis Sore throat- Primary Acute pharyngitis [facility] Diagnosis Onset Date Resolution Status Strep pharyngitis acute Contraception management acu te Recurrent acute tonsillitis acute [facility] Work Phone: Evaluation note* Diagnosis Bullous impetigo- Primary Impetigo [facility] Diagnosis Onset Date Resolution Status Acute upper respiratory infection acute Viral URI with cough acute [facility] Work Phone: Evaluation note* Diagnosis Onset Date Resolution Status Acute upper respiratory infection acute Viral URI with cough acute Dyspareunia acute IBS (irritable bowel syndrome) acute Abnormal uterine bleeding (AUB) acute [facility] Work Phone: Evaluation note* Diagnosis Onset Date Resolution Status Viral URI with cough acute Dyspareunia acute IBS (irritable bowel syndrome) acute Abnormal uterine bleeding (AUB) acute Depression acute Encounter to establish care acute Fatigue acute Headache acute Preventative health care acu te Weight gain acute [facility] Work Phone: Summary Purpose Family History No [...] WANTS TESTED FOR C DIFF [employer] Annual (REGISTERED NURSING PROFESSOR) PELVIC PAIN Reason for Visit Dysmenorrhea Encounter [...] PAIN AUB/right side pelvic pain ACUTE - SQL DATA ANALYST. EST CARE - REQ YUKO/NEEDS PPW Reason for Visit Viral URI with cough Dyspareunia IBS (irritable bowel syndrome) Abnormal uterine bleeding (AUB) Depression Encounter to establish care Fatigue Headache Preventative health care Weight gain Additional Source Comments INFORMATION SOURCE (unrecogn ized section and content) DATE CREATED AUTHOR 03/10/2019 [facility] DATE CREATED AUTHOR DAYANNA POTTER ATJESSY 09/16/2021 [facility] DATE CREATED AUTHOR AUTHOR'S ORGANIZ ATION 12/03/2022 [facility] DATE CREATED AUTHOR AUTHOR'S ORGANIZ ATION 06/27/2024 [facility] DATE CREATED AUTHOR AUTHOR'S ORGANIZ ATION 12/07/2024 [facility] Goals (unrecognized section and content) Goals [...] Provider, Refer ring Provider Active Laura Espana SQL DATA ANALYST, SQL DATA ANALYST-C Attending Provider Active Team Status: Inactive Member Role Status Dates No Primary Care Physician Primary Care Provider Active ANY Wang Attending Provider Active Team Status: Inactive Member Role Status Dates No Primary Care Physician Primary Care Provider Active Laura Espana SQL DATA ANALYST, SQL DATA ANALYST-C Attending Provider Active Team Status: Active Member Role Status Dates No Primary Care Physician Primary Care Provider Active Laura Espana SQL DATA ANALYST, SQL DATA ANALYST-C Attending Provider, Referring Provider Active Team Status: Inactive Member Role Status Dates No Primary Care Physician Primary Care Provider Active Laura Espana SQL DATA ANALYST, SQL DATA ANALYST-C Attending Provider, Referring Provider Active Glue Plant Operator Relationship Specialty Start Date End Date Sofi De Los Santos [address] [place] [address] PCP - General Pediatrics 10/16/18 Team Status: Inactive Member Role Status Dates No Primary Care Physician Primary Care Provider, Refer ring Provider Active Angela Boogie CNM Attending Provider Active Team Status: Inactive Member Role Status Dates No Primary Care Physician Primary Care Provider Active Dr. Mihir Contreras MD Attending Provider, Referring P saad Active Glue Plant Operator Relationship Specialty Start Date End Date Sofi De Los Santos [address] [place] [address] PCP - General Pediatrics 10/16/18 Team Status: [...] or prosecute any alcohol or drug abuse patient.[facility] the event this information is protected by the Federal Confidentiality of Alcohol and Drug Abuse Patient Records regulations: The Federal rules restrict any use of the information to criminally investigate or prosecute any alcohol or drug abuse patient.[facility] Reason for Visit (unrecogniz ed section and [...] BE BASED ON THE PRIMARY CLINICAL RECORDS. [facility]. provides no warranty or guarantee of the accuracy or completeness of information in this document.
== END | disposition home or self-care (01) ==
LOC: LAB 13:19
PROVIDERS: Referring Provider Nurse Practitioner Family; Visit Provider Nurse Practitioner Family
DX: N92.0 Excessive and frequent menstruation with regular cycle (principal); N92.6 Irregular menstruation, unspecified
CPT/HCPCS: 36415; 82627; 82626